=== PATIENT | female | born 1970 | race Caucasian/White ===

== ENCOUNTER 2018-07-22 08:41 | Inpatient (IN) | payer OTHER, SELFPAY ==
[2018-07-22] MEDS ORDERED: FOLIC ACID 5 MG/ML VIAL ONE (09:52)
[2018-07-22 09:58] LABS: Arterial Blood Carboxyhemoglob 1.1 % (0-1.5); Blood Gas Oxyhemoglobin 93.1 % (94-97)
--- NOTE | 2018-07-22 10:06 | RAD REPORT ---
EXAM DESCRIPTION: CT - Head Brain Wo Cont - 07/22/2018 9:39 am CLINICAL HISTORY: Dizziness;Slurred speech Headache, drowsiness COMPARISON: No comparisons TECHNIQUE: All CT scans are performed using dose optimization technique as appropriate and may inclu de automated exposure control or mA/KV adjustment according to patient size. FINDINGS: No intracranial hemorrhage, hydrocephalus or extra-axial fluid collection.Small areas of d iminished density are seen in the basal ganglia bilaterally.No areas of brain edema or evidence of mi dline shift. The paranasal sinuses and mastoids are clear. The calvarium is intact. IMPRESSION: Small areas of diminished density is seen in the basal ganglia bilaterally favored to re present findings related to prior infarcts. No acute intracranial finding is definitively seen. If t here is continued clinical concern for CVA, MR imaging of the brain would be recommended.
--- NOTE | 2018-07-22 10:35 | RAD REPORT ---
EXAM DESCRIPTION: RAD - Chest Single View - 07/22/2018 10:28 am CLINICAL HISTORY: SOB Chest pain. COMPARISON: No comparisons FINDINGS: Portable technique limits examination quality. The lungs are grossly clear. The heart is normal in size. No displaced fractures. IMPRESSION: No acute intrathoracic process suspected.
[2018-07-22 10:48] LABS: Absolute Lymphocytes (CBC) 1.4 K/uL (0.7-4.9); Absolute Monocytes 0.6 K/uL (0.1-1.3); Basophils % 0.7 % (0-1.3); Eosinophils % 1.6 % (0-4.4); Hematocrit 44.5 % (36.0-45.0); Lymphocytes % 12.2 % (15.3-44.8); MPV 8.2 fL (7.6-11.3); RBC Red Blood Cell Count 5.15 M/uL (3.86-4.86)
[2018-07-22 10:51] LABS: Protime INR 1.05
[2018-07-22 10:54] LABS: BUN Blood Urea Nitrogen 19 mg/dL (7-18); Bicarbonate 29 mmol/L (21-32); Glucose Level 158 mg/dL (74-106); Magnesium 1.9 mg/dL (1.8-2.4); Potassium 3.5 mmol/L (3.5-5.1); Sodium Level 141 mmol/L (136-145); Troponin (Emerg Dept Use Only) < 0.02 ng/mL (0.0-0.045)
--- NOTE | 2018-07-22 11:06 | RAD REPORT ---
EXAM DESCRIPTION: - CP - 07/22/2018 10:35 am CLINICAL HISTORY: Slurred speech;Weakness TIA/CVA, syncope COMPARISON: No comparisons TECHNIQUE: Real-time sonographic evaluation of both carotid systems was performed. Doppler interroga tion was performed with waveform tracing bilaterally. FINDINGS: Normal high resistance waveforms are noted in both external carotid arteries. The common c arotid arteries and internal carotid arteries show normal low resistance waveforms. No significant plaque formation is seen. Peak systolic and end diastolic velocity values and the ICA/ CCA ratios are in the non-hemodynamically significant range. Antegrade flow seen in both vertebral arteries. IMPRESSION: No significant atherosclerotic changes noted. No evidence of a hemodynamically significant stenosis.
--- NOTE | 2018-07-22 11:11 | ER ---
Nurse's Notes [facility] Name: Dejah Francis Age: 48 yrs Sex: Female : 1970 Arrival Date: 07/22/2018 Time: 08:48 Bed 13 Private MD: None, None Diagnosis: Weakness;Dizziness and giddiness Presentation: 07/22 09:10 Presenting complaint: Patient states: had high blood sugar yesterday, 376, and "right dm5 side isn't working right, having a hard time controlling it", "tadeo been dizzy" "today my blood sugar was 165 at home". Transition of care: patient was not received from another setting of care. Onset of symptoms was July 21, 2018. Risk Assessment: Do you want to hurt yourself or someone else? Patient reports no desire to harm self or others. Initial Sepsis Screen: Does the patient meet any 2 criteria? No. Patient's initial sepsis screen is negative. Does the patient have a suspected source of infection? No. Patient's initial sepsis screen is negative. Care prior to arrival: None. 09:10 Method Of Arrival: Ambulatory dm5 09:10 Acuity: ANDREA 3 dm5 Triage Assessment: 09:10 General: Appears in no apparent distress. Behavior is calm, cooperative. Pain: dm5 Complains of pain in right side - tingling. Neuro: Level of Consciousness is awake, alert, obeys commands, Oriented to person, place, time, Reports dizziness, since yesterday weakness in left arm and left leg. Respiratory: Airway is patent Respiratory effort is even, unlabored, Respiratory pattern is regular, symmetrical. Derm: Skin is pink, warm \\T\\ dry. Historical: - Allergies: : Ibuprofen; dm5 - Home Meds: : Humalog 100 unit/mL Sub-Q soln 10 mg twice a day for Type 2 Diabetes Mellitus [Active]; dm5 - PMHx: : Diabetes - NIDDM; Thyroid problem; dm5 - PSHx: : cyst removal - left shoulder; dm5 - Immunization history:: Adult Immunizations up to date. - Social history:: Smoking status: Patient/guardian denies using tobacco. - Ebola Screening: : Patient negative for fever greater than or equal to 101.5 degrees Fahrenheit, and additional compatible Ebola Virus Disease symptoms Patient denies exposure to infectious person Patient denies travel to an Ebola-affected area in the 21 days before illness onset No symptoms or risks identified at this time. Screenin:00 Patient has been NPO before screening. The patient is alert, able to follow commands. ph The patient does not exhibit slurred or garbled speech The patient is not exhibiting difficulty speaking. The patient does not exhibit difficulty understanding words. The patient is able to swallow own secretions with no drooling or need for suction. Patient tolerated one teaspoon of water. No drooling, immediate coughing, gurgling, or clearing of the throat was noted. The patient tolerated 90mL of water. No drooling, immediate coughing, gurgling, or clearing of the throat was noted. The patient passed the bedside swallow screening. Oral medications may be given as ordered. Contact Physician for further diet orders. 13:00 Abuse screen: Denies threats or abuse. Denies injuries from another. Nutritional ph screening: No deficits noted. Tuberculosis screening: No symptoms or risk factors identified. Fall Risk None identified. Assessment: 09:30 General: Appears in no apparent distress. comfortable, obese, well groomed, Behavior is ph calm, cooperative, appropriate for age, Denies fever, feeling ill. Pain: Denies pain. Neuro: Level of Consciousness is awake, alert, obeys commands, Oriented to person, place, time, situation, Pinmaker are equal bilaterally Speech is slurred, Facial symmetry appears normal, Facial symmetry: tongue is midline, Pupils are PERRLA, Reports dizziness, paresthesias weakness in "all over" Denies. Cardiovascular: Capillary refill < 3 seconds in bilateral fingers Patient's skin is warm and dry. Respiratory: Airway is patent Respiratory effort is even, unlabored, Respiratory pattern is regular, symmetrical, Breath sounds are clear bilaterally. GI: Patient currently denies abdominal pain, nausea, vomiting. : Denies burning with urination, urinary frequency. Derm: Skin is intact, is healthy with good turgor, Skin is pink, warm \\T\\ dry. Musculoskeletal: Circulation, motion, and sensation intact. Range of motion: intact in all extremities. 10:30 Reassessment: Patient appears in no apparent distress at this time. Patient and/or ph family updated on plan of care and expected duration. Pain level reassessed. Patient is alert, oriented x 3, equal unlabored respirations, skin warm/dry/pink. 11:30 Reassessment: Patient appears in no apparent distress at this time. Patient and/or ph family updated on plan of care and expected duration. Pain level reassessed. Patient is alert, oriented x 3, equal unlabored respirations, skin warm/dry/pink. 13:00 Reassessment: Patient appears in no apparent distress at this time. Patient and/or ph family updated on plan of care and expected duration. Pain level reassessed. Patient is alert, oriented x 3, equal unlabored respirations, skin warm/dry/pink. notified by MRI that pt was having anxiety r/t procedure, ERP aware and anxiety medication ordered. 14:45 Reassessment: Patient appears in no apparent distress at this time. Patient and/or ph family updated on plan of care and expected duration. Pain level reassessed. Patient is alert, oriented x 3, equal unlabored respirations, skin warm/dry/pink. Report called to Gloria HOOD, pt taken to [facility] via stretcher. Vital Signs: 09:10 BP 174 / 76; Pulse 88; Resp 18; Temp 98.9(TE); Pulse Ox 96% on R/A; Weight 142.88 kg; dm5 Height 5 ft. 9 in. (175.26 cm); Pain 0/10; 10:30 BP 164 / 78; Pulse 87; Resp 18; Pulse Ox 99% on R/A; ph 11:30 BP 154 / 78; Pulse 86; Resp 16; Pulse Ox 97% on R/A; ph 12:30 BP 169 / 81; Pulse 79; Resp 18; Pulse Ox 97% on R/A; ph 13:30 ph 14:05 BP 163 / 84; Pulse 88; Resp 22; Temp 97.9; Pulse Ox 99% on R/A; dh3 09:10 Body Mass Index 46.52 (142.88 kg, 175.26 cm) dm5 13:30 pt in MRI ph NIH Stroke Scale Scores: 09:24 NIHSS Score: 3 snw ED Course: 08:48 Patient arrived in ED. sb2 08:48 None, None is Private Physician. sb2 09:02 [facility] snw 09:02 Roni Nicholson MD is Attending Physician. snw 09:10 Arm band placed on left wrist. Patient placed in an exam room, on a stretcher. dm5 09:20 Triage completed. dm5 09:38 Shikha Montesinos, RN is Primary Nurse. ph 09:39 CT completed. Patient tolerated procedure well. Patient moved to CT via wheelchair. jg6 Patient moved back from CT. 09:40 CT Head Brain wo Cont In Process Unspecified. EDMS 10:00 Inserted saline lock: 20 gauge in right antecubital area, using aseptic technique. ph Blood collected. 10:01 Carotid Artery Bilateral US In Process Unspecified. EDMS 10:29 EKG done, by compressor service technician. reviewed by Roni Nicholson MD. at1 10:30 Stroke CXR 1 View In Process Unspecified. EDMS 11:09 Nichole Ochoa MD is Hospitalizing Provider. snw 14:45 Patient has correct armband on for positive identification. ph 14:55 No provider procedures requiring assistance completed. Patient admitted, IV remains in ph place. Administered Medications: 06/08 13:20 Drug: Ativan 2 mg Route: IVP; Site: right antecubital; ph 02 14:00 Follow up: Response: No adverse reaction; Anxiety decreased ph 10:15 Drug: foLIC Acid 1 mg Route: IVPB; Site: right antecubital; ph 10:30 Follow up: Response: No adverse reaction; IV Status: Completed infusion ph 12:50 Drug: Aspirin 81 mg Route: PO; ph 13:00 Follow up: Response: No adverse reaction ph Outcome: 11:10 Decision to Hospitalize by Provider. snw 14:58 Patient left the ED. ss 14:58 Admitted to Tele accompanied by damir, family with patient, via stretcher, with chart. ph 14:58 Condition: stable NIH Stroke Scale - NIH Stroke Score Date: 07/22/2018 Time: 09:24 Total Score = 3 1a. Level of Consciousness (LOC) - 0(Alert) 1b. Level of Consciousness (LOC) (Year \\T\\ Age) - 0(Both) 1c. LOC Commands (Open \\T\\ Closes Eyes/National Accounts Recruiter) - 0(Both) 2. Best Gaze (Lateral Gaze Paresis) - 0(Normal) 3. Visual Field Loss - 0(No visual loss) 4. Facial Palsy - 1(Minor Paralysis) 5a. Left Arm: Motor (10-second hold) - 0(No drift) 5b. Right Arm: Motor (10-second hold) - 0(No drift) 6a. Left Leg: Motor (5-second hold - always test supine) - 0(No drift) 6b. Right Leg: Motor (5-second hold - always test supine) - 1(Drift) 7. Limb Ataxia (finger/nose \\T\\ heel/fisher - test with eyes open) - 1(Present in one limb) 8. Sensory Loss (pinprick arms/legs/face) - 0(Normal) 9. Best Language: Aphasia (description/naming/reading) - 0(No aphasia) 10. Dysarthria (speech clarity - read or repeat words) - 0(Normal) 11. Extinction and Inattention (visual/tactile/auditory/spatial/personal) - 0(No abnormality) Initials: snw Signatures: Dispatcher [employer] EDMS Kacy Britton RN RN dm5 Felisa Triana, KNOT BORER-C KNOT BORER-Csnw Ami Maxwell RN RN ss Noemí Whiting, desilverizer EKG Tat1 Shikha Montesinos RN RN Anjana Will 3 Ary Tiwari2 Radha Burgos jg6 Corrections: (The following items were deleted from the chart) 20:02 11:15 Inserted saline lock: 20 gauge in right antecubital area, using aseptic ph technique. Blood collected. ph
--- NOTE | 2018-07-22 11:11 | EDPHYS ---
Physician Documentation [facility] Name: Dejah Francis Age: 48 yrs Sex: Female : 1970 Arrival Date: 07/22/2018 Time: 08:48 Bed 13 Private MD: None, None ED Physician Roni Nicholson HPI: 07/22 09:29 This 48 yrs old Female presents to ER via Ambulatory with complaints of High snw Blood Sugar, Dizziness, TINGLING RT SIDE. 09:29 The patient or guardian reports hyperglycemia, blurry vision, speech changes, right snw sided weakness that was potentially precipitated by with the patient's symptoms witnessed by family. Onset: The symptoms/episode began/occurred suddenly, yesterday. Associated signs and symptoms: Pertinent positives: right sided weakness, right sided paresthesias, slurred speech, dizziness. Current symptoms: In the emergency department the patient's symptoms are unchanged from the initial presentation. The patient has not experienced similar symptoms in the past. It is unknown whether or not the patient has recently seen a physician. Historical: - Allergies: 09:29 Ibuprofen; dm5 - Home Meds: : Humalog 100 unit/mL Sub-Q soln 10 mg twice a day for Type 2 Diabetes Mellitus [Active]; dm5 - PMHx: 09:29 Diabetes - NIDDM; Thyroid problem; dm5 - PSHx: 09:29 cyst removal - left shoulder; dm5 - Immunization history:: Adult Immunizations up to date. - Social history:: Smoking status: Patient/guardian denies using tobacco. - Ebola Screening: : Patient negative for fever greater than or equal to 101.5 degrees Fahrenheit, and additional compatible Ebola Virus Disease symptoms Patient denies exposure to infectious person Patient denies travel to an Ebola-affected area in the 21 days before illness onset No symptoms or risks identified at this time. ROS: 09:29 Constitutional: Negative for fever, chills, and weight loss, Eyes: Negative for injury, snw pain, redness, and discharge, ENT: Negative for injury, pain, and discharge, Neck: Negative for injury, pain, and swelling, Cardiovascular: Negative for chest pain, palpitations, and edema, Respiratory: Negative for shortness of breath, cough, wheezing, and pleuritic chest pain, Abdomen/GI: Negative for abdominal pain, nausea, vomiting, diarrhea, and constipation, Back: Negative for injury and pain, : Negative for injury, bleeding, discharge, and swelling, MS/Extremity: Negative for injury and deformity, + right sided weakness Skin: Negative for injury, rash, and discoloration. 09:29 Neuro: Positive for dizziness, gait disturbance, speech changes, weakness, of the right sided. Exam: 09:24 Constitutional: This is a well developed, well nourished patient who is awake, alert, snw and in no acute distress. Head/Face: Normocephalic, atraumatic. 09:24 ENT: Nares patent. No nasal discharge, no septal abnormalities noted. Tympanic membranes are normal and external auditory canals are clear. Oropharynx with no redness, swelling, or masses, exudates, or evidence of obstruction, uvula midline. Mucous membranes moist. Neck: Trachea midline, no thyromegaly or masses palpated, and no cervical lymphadenopathy. Supple, full range of motion without nuchal rigidity, or vertebral point tenderness. No Meningismus. Chest/axilla: Normal chest wall appearance and motion. Nontender with no deformity. No lesions are appreciated. Cardiovascular: Regular rate and rhythm with a normal S1 and S2. No gallops, murmurs, or rubs. Normal PMI, no JVD. No pulse deficits. Respiratory: Lungs have equal breath sounds bilaterally, clear to auscultation and percussion. No rales, rhonchi or wheezes noted. No increased work of breathing, no retractions or nasal flaring. Abdomen/GI: Soft, non-tender, with normal bowel sounds. No distension or tympany. No guarding or rebound. No evidence of tenderness throughout. Back: No spinal tenderness. No costovertebral tenderness. Full range of motion. Skin: Warm, dry with normal turgor. Normal color with no rashes, no lesions, and no evidence of cellulitis. MS/ Extremity: Pulses equal, no cyanosis. Neurovascular intact. Full, normal range of motion. Psych: Awake, alert, with orientation to person, place and time. Behavior, mood, and affect are within normal limits. 09:24 Eyes: Pupils: no acute changes, Extraocular movements: no acute changes, Lids and lashes: ptosis, of the right eye. 09:24 Neuro: Orientation: is normal, Mentation: is normal, able to follow commands, Memory: is normal, Cranial nerves: Ptosis of right upper eyelid, Cerebellar function: right lower ext unsteady, Motor: moves all fours, Strength is 3/5 in the right arm/leg, Sensation: tingling, that is mild, that is moderate, of the right leg, Gait: not tested. seizure activity, is not displayed by the patient, Abnormal movements: there are no abnormal movements. Vital Signs: 09:10 BP 174 / 76; Pulse 88; Resp 18; Temp 98.9(TE); Pulse Ox 96% on R/A; Weight 142.88 kg; dm5 Height 5 ft. 9 in. (175.26 cm); Pain 0/10; 10:30 BP 164 / 78; Pulse 87; Resp 18; Pulse Ox 99% on R/A; ph 11:30 BP 154 / 78; Pulse 86; Resp 16; Pulse Ox 97% on R/A; ph 12:30 BP 169 / 81; Pulse 79; Resp 18; Pulse Ox 97% on R/A; ph 13:30 ph 14:05 BP 163 / 84; Pulse 88; Resp 22; Temp 97.9; Pulse Ox 99% on R/A; dh3 09:10 Body Mass Index 46.52 (142.88 kg, 175.26 cm) dm5 13:30 pt in MRI ph NIH Stroke Scale Scores: 09:24 NIHSS Score: 3 snw MDM: 09:16 Patient medically screened. snw 09:24 Data reviewed: vital signs, nurses notes. Data interpreted: Pulse oximetry: on room air snw is 96 %. Interpretation: acceptable. Counseling: I had a detailed discussion with the patient and/or guardian regarding: the historical points, exam findings, and any diagnostic results supporting the discharge/admit diagnosis, the presence of at least one elevated blood pressure reading (>120/80) during this emergency department visit. ED course: Pt is not candidate for TPA as s/s started >4 hours ago (greater than 24 hours ago). 10:38 Physician consultation: Randell Gonzalez MD was called at 10:38, regarding consult, snw Message left with Dr. Gonzalez's office re: consult. 11:09 Physician consultation: Nichole Ochoa MD was called at 11:09, was contacted at 11:09, snw regarding admission, to the telemetry unit. 14:46 Physician consultation: Randell Gonzalez MD was called at 14:40, was contacted at 14:40, snw regarding MRI stroke protocol results. 07/22 09:16 Order name: ABG; Complete Time: 11:41 snw 07/22 09:19 Order name: Glucose, Ancillary Testing; Complete Time: 09:22 EDMS 07/22 09:24 Order name: Troponin (emerg Dept Use Only); Complete Time: 10:59 snw 07/22 09:24 Order name: Magnesium; Complete Time: 10:59 snw 07/22 09:24 Order name: Basic Metabolic Panel; Complete Time: 10:59 snw 07/22 09:24 Order name: CBC with Diff; Complete Time: 10:59 snw 07/22 09:24 Order name: Protime (+inr); Complete Time: 10:59 snw 07/22 09:24 Order name: Ptt, Activated; Complete Time: 10:59 w 07/22 09:24 Order name: Stroke CXR 1 View; Complete Time: 10:46 snw 07/22 09:24 Order name: CT Head Brain wo Cont; Complete Time: 10:33 snw 07/22 09:24 Order name: Blood Culture* 07/22 09:24 Order name: Carotid Artery Bilateral US; Complete Time: 11:08 snw 07/22 10:34 Order name: MRI Stroke Protocol [facility] 07/22 14:44 Order name: MRI; Complete Time: 14:56 EDMS 07/22 09:16 Order name: FSBS; Complete Time: 14:10 07/22 09:24 Order name: Call for Old Records 07/22 09:24 Order name: EKG; Complete Time: 09:26 w 07/22 09:24 Order name: Cardiac monitoring; Complete Time: 14:09 w 07/22 09:24 Order name: EKG - Nurse/Tech; Complete Time: 14:09 w 07/22 09:24 Order name: IV Saline Lock; Complete Time: 14:09 snw 07/22 09:24 Order name: Labs collected and sent; Complete Time: 14:10 w 07/22 09:24 Order name: NPO; Complete Time: 14:10 w 07/22 09:24 Order name: O2 Per Protocol; Complete Time: 14:10 snw 07/22 09:24 Order name: O2 Sat Monitoring; Complete Time: 14:10 w 07/22 09:24 Order name: Stroke Swallow Screen; Complete Time: 14:10 snw Administered Medications: 06/08 13:20 Drug: Ativan 2 mg Route: IVP; Site: right antecubital; ph 07/22 14:00 Follow up: Response: No adverse reaction; Anxiety decreased ph 10:15 Drug: foLIC Acid 1 mg Route: IVPB; Site: right antecubital; ph 10:30 Follow up: Response: No adverse reaction; IV Status: Completed infusion ph 12:50 Drug: Aspirin 81 mg Route: PO; ph 13:00 Follow up: Response: No adverse reaction ph Disposition: 18:55 Co-signature as Attending Physician, Roni Nicholson MD. rn Disposition: 07/22/18 11:10 Hospitalization ordered by Nichole Ochoa for Observation. Preliminary diagnosis are Weakness, Dizziness and giddiness. - Bed requested for Telemetry/MedSurg (observation). - Status is Observation. ss - Condition is Stable. - Problem is new. - Symptoms are unchanged. UTI on Admission? No NIH Stroke Scale - NIH Stroke Score Date: 07/22/2018 Time: 09:24 Total Score = 3 1a. Level of Consciousness (LOC) - 0(Alert) 1b. Level of Consciousness (LOC) (Year \T\ Age) - 0(Both) 1c. LOC Commands (Open \T\ Closes Eyes/Mammography Technologist) - 0(Both) 2. Best Gaze (Lateral Gaze Paresis) - 0(Normal) 3. Visual Field Loss - 0(No visual loss) 4. Facial Palsy - 1(Minor Paralysis) 5a. Left Arm: Motor (10-second hold) - 0(No drift) 5b. Right Arm: Motor (10-second hold) - 0(No drift) 6a. Left Leg: Motor (5-second hold - always test supine) - 0(No drift) 6b. Right Leg: Motor (5-second hold - always test supine) - 1(Drift) 7. Limb Ataxia (finger/nose \T\ heel/fisher - test with eyes open) - 1(Present in one limb) 8. Sensory Loss (pinprick arms/legs/face) - 0(Normal) 9. Best Language: Aphasia (description/naming/reading) - 0(No aphasia) 10. Dysarthria (speech clarity - read or repeat words) - 0(Normal) 11. Extinction and Inattention (visual/tactile/auditory/spatial/personal) - 0(No abnormality) Initials: snw Signatures: Dispatcher [employer] EDKacy Youssef RN RN dm5 Felisa Triana, GLUER-C GLUER-Csnw Roni Nicholson MD MD rn Martinez, Eric em1 Ami Maxwell RN RN Shikha Montesinos RN RN ph Corrections: (The following items were deleted from the chart) 13:41 11:10 Hospitalization Ordered by Nichole Ochoa MD for Observation. Preliminary em1 diagnosis is Weakness; Dizziness and giddiness. Bed requested for Telemetry/MedSurg (observation). Status is Observation. Condition is Stable. Problem is new. Symptoms are unchanged. UTI on Admission? No. snw 14:58 13:41 07/22/2018 11:10 Hospitalization Ordered by Nichole Ochoa MD for ss Observation. Preliminary diagnosis is Weakness; Dizziness and giddiness. Bed requested for Telemetry/MedSurg (observation). Status is Observation. Condition is Stable. Problem is new. Symptoms are unchanged. UTI on Admission? No. em1
--- NOTE | 2018-07-22 12:22 | EKG ---
Test Date: 2018-07-22 Test Time: 10:25:51 Oral Surgery Physician: JENNIFER MEASUREMENT RESULTS: Intervals: Rate: 83 MT: 176 QRSD: 92 QT: 396 QTc: 465 Burdick: P: 54 MT: 176 QRS: 51 T: 59 INTERPRETIVE STATEMENTS: Normal sinus rhythm Cannot rule out Anterior infarct, age undetermined Abnormal ECG No previous ECG available for comparison Electronically Signed On 07-22-18 12:20:56 BUZZSAW OPERATOR by Ignacio Dunlap
[2018-07-22] MEDS ORDERED: ASPIRIN 81 MG CHEWABLE TABLET ONE (12:57)
[2018-07-22] MEDS ORDERED: LORazepam 2 MG/ML VIAL ONE (13:24)
--- NOTE | 2018-07-22 14:41 | RAD REPORT ---
EXAM DESCRIPTION: MRI - Brain Wo Cont - 07/22/2018 2:03 pm CLINICAL HISTORY: Dizziness COMPARISON: Head CT July 22, 2018 TECHNIQUE: Axial, sagittal, and coronal magnetic images of the brain were obtained. Contrast was not requested FINDINGS: 8 millimeter area of abnormal signal is present within the left internal capsule consisten t with an acute infarct. A 8 millimeter area of abnormal signal within the left basal ganglia/left faust radiata represents a n old infarct. Bold right basal ganglia and left periventricular infarcts noted. Small old right cerebellar infarct. The ventricles are normal caliber. An extra-axial fluid collection is not present The sinuses and mastoids are clear. IMPRESSION: 8 millimeter acute infarct left internal capsule Kiran of the emergency room was notified 2:36 p.m. July 22, 2018
[2018-07-22] MEDS: CLOPIDOGREL 75 MG TABLET PO SCH (15:50)
[2018-07-22] MEDS: NA CHLORIDE 0.9% 1,000 ML IV SCH (15:51)
[2018-07-22 20:26] LABS: Urine Appearance CLEAR; Urine Bilirubin NEGATIVE (NEG); Urine Blood NEGATIVE (NEG); Urine Color YELLOW; Urine Glucose 2+ (NEG); Urine Protein NEGATIVE (NEG); Urine pH 5.5 (5.0-7.0)
[2018-07-22 20:29] LABS: Urine Microscopic Reflex ORDER UMIC
[2018-07-22 21:03] LABS: Urine Bacteria >50 /HPF (<20); Urine Culture Reflex Order REFLEXED; Urine RBC <5 /HPF (NONE SEEN)
[2018-07-22] MEDS: ATORVASTATIN 80 MG TAB PO SCH (21:32)
[2018-07-23] MEDS: NA CHLORIDE 0.9% 1,000 ML IV SCH ×3 (01:35→21:10)
[2018-07-23] MEDS: METOPROLOL TARTRATE 5 MG/5 ML INJ IV PRN ×4 (01:36→21:10)
--- NOTE | 2018-07-23 06:27 | CON ---
Reason For Consultation: Consultation called because of stroke. History Of Present Illness: Ms. Francis is a 48-year-old, right-handed patient, who has poorly controlled diabetes mellitus, hypertension, and dyslipidemia. On the 11 in the morning, today is the , the patient noted some incoordination, difficulty using her right leg, could not maintain balance , and felt "dizzy." Her blood sugar at time was 376. She did not seek medical attention right away. Next day, she did come in, which was the 21 of July , in the [facility] and she had imaging of the brain including a head CT scan, which suggests possibility of strokes, although the age could not be determined and these were in the basal ganglia bilaterally. They did appear more chronic strokes. However, she did have subsequent brain MRI stroke protocol, identified an acute stroke measuring 8 mm in the internal capsule and an old stroke in the left basal ganglia, also measuring 8 mm. In retrospect, the patient says she does not recall having any incoordination problems despite the chronic left basal ganglia stroke. She does not know when that would occur. Carotid Dopplers were negative. EKG showed sinus rhythm. Chest x-ray also was negative. At [facility], she did have hypertension and was allowed to have permissive hypertension in association with the acute stroke. Currently, she did have up to actually ranged from 160s to 190s systolic over 80s to 97 diastolic and pulse range in the mid to upper 80s. Temperature afebrile. Her blood work did not reveal any significant abnormalities in terms of a complete blood count with differential. There is a slightly elevated white blood cell count of 11.2, neutrophils 80.5. Coagulation panel was normal. Blood gas is essentially unremarkable. Slightly low CO2 of 24.5. Chemistries did show a glucose ranged from 158-171, and magnesium normal, calcium normal. Rapid troponin negative. Past Medical History: As indicated. Allergies: IBUPROFEN. Medications: At home should be Humalog 10 units subcutaneously twice daily. She was poorly compliant with that. She also has hypothyroidism, but no medications noted there. Past Surgical History: Left shoulder cyst removal. Family History: Noncontributory. Social History: Denies alcohol, tobacco, or IV drug use. Review of Systems: Denies any recent fevers, chills, nausea, vomiting, myalgias, arthralgias, headache, weight change, rash, psychiatric complaints, gastrointestinal or genitourinary issues. Physical Examination: Vital Signs: Blood pressure 193/97, pulse of 83, respiratory rate 16, temperature 97.6. Oxygen saturation is 98% on room air. General: Ms. Francis is resting in bed. She is in no significant distress. She does appear to have significant obesity class 2, with her weight being 302 pounds, height 5 feet and 9 inches, and BMI 44.6. HEENT: She is atraumatic and normocephalic. Sclerae anicteric. Oropharynx is moist and pink. Neck: Supple. Chest: Clear. Heart: Regular. Extremities: Show no edema, cyanosis, or clubbing. Neurological: She is alert and oriented to person, place, time, and situation. No obvious cranial nerve deficits on 2 through 12. Motor examination: She has full strength in upper and lower extremity. However, she has marked dysmetria noted in the right upper extremity and finger to nose and fine finger movements. Also noted dysmetria in the right lower extremity on her fisher and trying to touch 1 spot on her left fisher with the right heel. She does not have drift in the upper extremities. She does not have a sensory deficit, right versus left side. Reflexes are symmetric, 1 to 2+ in upper and lower extremities. Gait; she does require max assist, tends to fall to the right with ambulation. Assessment: Ms. Francis is a 48-year-old patient with an acute left internal capsule stroke, but basal ganglia involvement affecting more incoordination than strength and she has a tendency to fall to the right and significant dysmetria noted in the right upper extremity. She has minimal weakness and sensory loss. She is poorly compliant with her diabetes, hypertension, and dyslipidemia management. Plan: 1. Aspirin along with Plavix daily. 2. Folate 1 mg daily. 3. Lipitor 80 mg at bedtime. 4. Permissive hypertension over the next 3 days, then may introduce NIDA inhibitor at low dose. 5. The patient should be evaluated by physical and occupational therapy for potential transfer to the acute inpatient rehabilitation unit to begin aggressive physical therapy to help speed her recovery. 6. The patient was counseled on the importance of addressing diet, hydration, and exercise to reduce the risk of additional strokes and myocardial infarction. 7. After the patient is discharged from rehab unit, she should follow up with Dr. Gonzalez in clinic in 1 month. JANKI Voice ID: [id number] Report ID: [id number] MTDD
[2018-07-23 06:41] LABS: Absolute Lymphocytes (CBC) 1.6 K/uL (0.7-4.9); Absolute Monocytes 0.6 K/uL (0.1-1.3); Absolute Neutrophil 5.4 K/uL (1.8-8.0); Basophils % 0.8 % (0-1.3); Eosinophils % 2.6 % (0-4.4); Hematocrit 42.8 % (36.0-45.0); Lymphocytes % 20.4 % (15.3-44.8); MPV 8.3 fL (7.6-11.3); Monocytes % 8.1 % (3.3-12.3); RBC Red Blood Cell Count 4.98 M/uL (3.86-4.86)
[2018-07-23 06:42] LABS: Bilirubin Total 0.5 mg/dL (0.2-1.0); Phosphorus 3.1 mg/dL (2.5-4.9); Potassium 3.6 mmol/L (3.5-5.1); Protein, Total 6.6 g/dL (6.4-8.2)
--- NOTE | 2018-07-23 07:17 | P.HP ---
Certification for Inpatient Patient admitted to: Inpatient Practitioner: I am a practitioner with admitting privileges, knowledge of patient current condition, hospital course, and medical plan of care. Services: Services provided to patient in accordance with Admission requirements found in Title 42 Section 412.3 of the Code of Federal Regulations Patient History Date of Service: 07/22/18 Primary Care Provider: None Reason for admission: Right sided weakness History of Present Illness: This is a 48 yr old obese female with NIDDM, poorly controlled, previous hx of HTN not on medications for years, thyroid disease along with strong family hx of CVA admitted for right sided weakness. Per patient, she has been having progressively worsening dizziness, blurry vision (R>L), hand time controlling the right side for the past 2 days. She had a fall on the morning of admission. In the ED, patient's BP was 170/70, CT head was negative for acute abnormalities, MRI was pending. At the time of my exam ,patient was AOx3, had persistent ataxia on right side and blood pressure was elevated. Allergies ibuprofen Adverse Reaction (Verified 07/22/18 15:16) Itching/Hives/Rash Home Medications: Insulin Lispro [Humalog] 10 unit SQ BID 07/22/18 - Past Medical/Surgical History Has patient received pneumonia vaccine in the past: No Diabetic: Yes -: DM -: Thyroid -: Lt shoulder cyst removal - Family History Father -: Hypertension, Other (see notes) Notes: thyroidectomy. glaucoma Mother -: Heart disease, Hypertension, Diabetes - Social History Smoking Status: Never smoker Alcohol use: No CD- Drugs: No Caffeine use: No Place of Residence: Home Review of Systems 10-point ROS is otherwise unremarkable Physical Examination - Vital Signs Temperature: 98.2 F Blood Pressure: 189/79 Pulse: 78 Respirations: 20 Pulse Ox (%): 94 - Physical Exam General: Alert, In no apparent distress, Oriented x3 HEENT: Atraumatic, PERRLA, Mucous membr. moist/pink, EOMI, Sclerae nonicteric Neck: Supple, 2+ carotid pulse no bruit, No LAD, Without JVD or thyroid abnormality Respiratory: Clear to auscultation bilaterally, Normal air movement Cardiovascular: Regular rate/rhythm, Normal S1 S2 Gastrointestinal: Normal bowel sounds, No tenderness Musculoskeletal: No tenderness Integumentary: No rashes Neurological: Normal affect, Other (Right sided extremity dysmetria noted. No obvious cranial nerve deficits noted) Lymphatics: No axilla or inguinal lymphadenopathy - Studies Laboratory Data (last 24 hrs) 07/22/18 10:00: PT 12.4, INR 1.05, APTT 30.2 07/22/18 10:00: WBC 11.2 H, Hgb 14.9, Hct 44.5, Plt Count 318 07/22/18 10:00: Sodium 141, Potassium 3.5, BUN 19 H, Creatinine 0.78, Glucose 158 H, Magnesium 1.9 Assessment and Plan - Problems (Diagnosis) (1) CVA (cerebral vascular accident) Current Visit: Yes Status: Acute Qualifiers: CVA mechanism: unspecified Qualified Code(s): I63.9 - Cerebral infarction, unspecified (2) Diabetes mellitus Current Visit: Yes Status: Chronic Qualifiers: Diabetes mellitus type: type 2 Diabetes mellitus continuous churn buttermaker insulin use: with continuous churn buttermaker use Diabetes mellitus complication status: with hyperglycemia Qualified Code(s): E11.65 - Type 2 diabetes mellitus with hyperglycemia; Z79.4 - [facility] (current) use of insulin (3) Hypothyroid Current Visit: Yes Status: Chronic Qualifiers: Hypothyroidism type: unspecified Qualified Code(s): E03.9 - Hypothyroidism , unspecified - Plan This is a 48-year-old female with. Acute CVA History of prior CVA, unknown to patient Start aspirin, Plavix, statin Speech therapy, physical therapy, occupation therapy consult ordered. Neurology consulted Allow for permissive hypertension. Diabetes mellitus, type 2, with hyperglycemia, uncontrolled Strict blood sugar control likes line Accu-Cheks a.c. HS, mild scale insulin Will restart home insulin as well Hypothyroidism, not on any medications Noncompliance Counseled on importance of medication compliance Morbid obesity, BMI 44.6 DVT prophylaxis: Lovenox GI prophylaxis: None Diet: NPO, until cleared from speech therapy Disposition: Pending workup/physical therapy evaluation. We will likely need social work to be involved for discharge planning on this patient. - Advance Directives Does patient have a Living Will: No Does patient have a Durable POA for Healthcare: No
[2018-07-23] MEDS: ASPIRIN EC 81 MG TAB PO SCH (08:46)
[2018-07-23] MEDS: CLOPIDOGREL 75 MG TABLET PO SCH (08:46)
[2018-07-23] MEDS ORDERED: POTASSIUM CL SA 10 MEQ TAB PO ONE (09:00)
[2018-07-23] MEDS ORDERED: D50W 25 GM/50 ML SYRINGE IV PRN ×3 (09:23→11:53)
[2018-07-23] MEDS ORDERED: GLUCAGON 1 MG/VIAL IM PRN ×3 (09:23→11:53)
[2018-07-23] MEDS ORDERED: ACETAMINOPHEN 500 MG TAB PO PRN (12:28)
[2018-07-23] MEDS: INSULIN -REGULAR HUMAN 50 UNIT/0.5 ML ML SQ SCH ×3 (12:30→21:00)
--- NOTE | 2018-07-23 12:56 | ECHO ---
HEIGHT: 5 ft 9 in WEIGHT: 302 lb 5 oz DATE OF STUDY: 07/23/[address]: Nichole Ochoa MD 2-DIMENSIONAL: YES M.MODE: YES DOPPLER: YES COLOR FLOW: YES TDS: NO PORTABLE: NO DEFINITY: NO BUBBLE STUDY: NO DIAGNOSIS: STROKE CARDIAC HISTORY: CATHERIZATION: NO SURGERY: NO PROSTHETIC VALVE: NO PACEMAKER: NO MEASUREMENTS (cm) DIASTOLIC (NORMALS) SYSTOLIC (NORMALS) IVSd 1.3 (0.6-1.2) LA Diam 3.9 (1.9-4.0) LVEF 75% LVIDd 4.1 (3.5-5.7) LVIDs 2.3 (2.0-3.5) %FS 43% LVPWd 1.4 (0.6-1.2) Ao Diam 2.7 (2.0-3.7) 2 DIMENSIONAL ASSESSMENT: RIGHT ATRIUM: NORMAL LEFT ATRIUM: NORMAL RIGHT VENTRICLE: NORMAL LEFT VENTRICLE: NORMAL TRICUSPID VALVE: NORMAL MITRAL VALVE: NORMAL PULMONIC VALVE: NORMAL AORTIC VALVE: NORMAL PERICARDIAL EFFUSION: NONE AORTIC ROOT: NORMAL LEFT VENTRICULAR WALL MOTION: NORMAL DOPPLER/COLOR FLOW: NORMAL COMMENTS: NORMAL 2D ECHOCARDIOGRAM WITH DOPPLER. TECHNOLOGIST: Angelo PRIETO
--- NOTE | 2018-07-23 16:56 | P.PN ---
Subjective Date of Service: 07/23/18 Primary Care Provider: None Chief Complaint: Right sided weakness Subjective: No new changes, No C/O voiced Patient seen and examined at bedside. No family at bedside. Chart reviewed and case discussed with nursing staff. Review of Systems 10-point ROS is otherwise unremarkable Physical Examination - Vital Signs Temperature: 98.2 F Blood Pressure: 189/79 Pulse: 78 Respirations: 20 Pulse Ox (%): 94 - Physical Exam General: Alert, In no apparent distress, Oriented x3 HEENT: Atraumatic, PERRLA, EOMI Neck: Supple, JVD not distended Respiratory: Clear to auscultation bilaterally, Normal air movement Cardiovascular: Regular rate/rhythm, Normal S1 S2 Gastrointestinal: Normal bowel sounds, No tenderness Musculoskeletal: No tenderness Integumentary: No rashes Neurological: Other (Right-sided drift still noted,) Lymphatics: No axilla or inguinal lymphadenopathy Assessment And Plan - Current Problems (Diagnosis) (1) CVA (cerebral vascular accident) Current Visit: Yes Status: Acute Qualifiers: CVA mechanism: unspecified Qualified Code(s): I63.9 - Cerebral infarction, unspecified (2) Diabetes mellitus Current Visit: Yes Status: Chronic Qualifiers: Diabetes mellitus type: type 2 Diabetes mellitus snf insulin use: with snf use Diabetes mellitus complication status: with hyperglycemia Qualified Code(s): E11.65 - Type 2 diabetes mellitus with hyperglycemia; Z79.4 - skilled nursing (current) use of insulin (3) Hypothyroid Current Visit: Yes Status: Chronic Qualifiers: Hypothyroidism type: unspecified Qualified Code(s): E03.9 - Hypothyroidism , unspecified - Plan This is a 48-year-old female with. Acute CVA History of prior CVA, unknown to patient Start aspirin, Plavix, statin Speech therapy, physical therapy, occupation therapy consult ordered. Pending physical therapy consult still. Neurology consulted, recommendations appreciated. Allow for permissive hypertension. Diabetes mellitus, type 2, with hyperglycemia, uncontrolled Strict blood sugar control likes line Accu-Cheks a.c. HS, mild scale insulin Will restart home insulin as well Hypothyroidism, not on any medications Noncompliance Counseled on importance of medication compliance Morbid obesity, BMI 44.6 DVT prophylaxis: Lovenox GI prophylaxis: None Diet: NPO, until cleared from speech therapy Disposition: Pending workup/physical therapy evaluation. We will likely need social work to be involved for discharge planning on this patient.
[2018-07-23] MEDS: INSULIN 70/30 100 UNITS/ML SQ SCH (17:05)
[2018-07-23] MEDS: ATORVASTATIN 80 MG TAB PO SCH (21:09)
[2018-07-24] MEDS: NA CHLORIDE 0.9% 1,000 ML IV SCH (05:51)
[2018-07-24] MEDS: METOPROLOL TARTRATE 5 MG/5 ML INJ IV PRN (05:52)
[2018-07-24 06:11] LABS: Absolute Lymphocytes (CBC) 6.3 K/uL (0.7-4.9); Absolute Monocytes 0.2 K/uL (0.1-1.3); Absolute Neutrophil 0.8 K/uL (1.8-8.0); Eosinophils % 0.5 % (0-4.4); Hematocrit 41.5 % (36.0-45.0); Lymphocytes % 86.9 % (15.3-44.8); MPV 8.1 fL (7.6-11.3); Monocytes % 2.1 % (3.3-12.3); RBC Red Blood Cell Count 4.83 M/uL (3.86-4.86)
[2018-07-24 06:21] LABS: ALT/SGPT 17 U/L (12-78); AST/SGOT 10 U/L (15-37); Alkaline Phosphatase 80 U/L (45-117); BUN Blood Urea Nitrogen 15 mg/dL (7-18); Bicarbonate 28 mmol/L (21-32); Bilirubin Total 0.4 mg/dL (0.2-1.0); Glucose Level 117 mg/dL (74-106); Potassium 3.4 mmol/L (3.5-5.1); Protein, Total 6.4 g/dL (6.4-8.2); Sodium Level 142 mmol/L (136-145)
[2018-07-24] MEDS ORDERED: POTASSIUM CL SA 10 MEQ TAB PO ONE (07:00)
[2018-07-24] MEDS: INSULIN -REGULAR HUMAN 50 UNIT/0.5 ML ML SQ SCH ×4 (07:30→21:00)
[2018-07-24 08:35] LABS: Blood Morphology Comment NOT SEEN (NOT SEEN); Hypersegmented Neutrophils 1+; Platelet Estimate ADEQ
[2018-07-24] MEDS: INSULIN 70/30 100 UNITS/ML SQ SCH ×2 (09:21→16:28)
[2018-07-24] MEDS: ASPIRIN EC 81 MG TAB PO SCH (09:59)
[2018-07-24] MEDS: CLOPIDOGREL 75 MG TABLET PO SCH (09:59)
[2018-07-24] MEDS: ENOXAPARIN 40 MG/0.4 ML SQ SCH (10:00)
--- NOTE | 2018-07-24 12:17 | P.PN ---
Subjective Date of Service: 07/24/18 Primary Care Provider: None Chief Complaint: Right sided weakness Subjective: No C/O voiced, Working w/ PT Patient seen and examined at bedside. Father at bedside. Chart reviewed and case discussed with nursing staff. Review of Systems 10-point ROS is otherwise unremarkable Physical Examination - Vital Signs Temperature: 97.1 F Blood Pressure: 160/80 Pulse: 81 Respirations: 16 Pulse Ox (%): 98 - Physical Exam General: Alert, In no apparent distress, Oriented x3 HEENT: Atraumatic, PERRLA, EOMI Neck: Supple, JVD not distended Respiratory: Clear to auscultation bilaterally, Normal air movement Cardiovascular: Regular rate/rhythm, Normal S1 S2 Gastrointestinal: Normal bowel sounds, No tenderness Musculoskeletal: No tenderness Integumentary: No rashes Neurological: Normal speech, Normal affect, Other (Continues to have right- sided drift/weakness) Lymphatics: No axilla or inguinal lymphadenopathy Assessment And Plan - Current Problems (Diagnosis) (1) CVA (cerebral vascular accident) Current Visit: Yes Status: Acute Qualifiers: CVA mechanism: unspecified Qualified Code(s): I63.9 - Cerebral infarction, unspecified (2) Diabetes mellitus Current Visit: Yes Status: Chronic Qualifiers: Diabetes mellitus type: type 2 Diabetes mellitus termite control servicer insulin use: with termite control servicer use Diabetes mellitus complication status: with hyperglycemia Qualified Code(s): E11.65 - Type 2 diabetes mellitus with hyperglycemia; Z79.4 - exterminator helper (current) use of insulin (3) Hypothyroid Current Visit: Yes Status: Chronic Qualifiers: Hypothyroidism type: unspecified Qualified Code(s): E03.9 - Hypothyroidism , unspecified (4) Hypertension Current Visit: Yes Status: Chronic Qualifiers: Hypertension type: essential hypertension Qualified Code(s): I10 - Essential (primary) hypertension (5) Noncompliance Current Visit: Yes Status: Acute - Plan This is a 48-year-old female with. Acute CVA History of prior CVA, unknown to patient Continue aspirin, Plavix, statin Speech therapy, physical therapy, occupation therapy consulted. Neurology consulted, recommendations appreciated. Allow for permissive hypertension. Hypertension Will start on low-dose NIDA-inhibitor. Continue to monitor blood pressure Diabetes mellitus, type 2, with hyperglycemia, uncontrolled Strict blood sugar control likes line Accu-Cheks ACHS, mild scale insulin Will restart home insulin as well Hypothyroidism, not on any medications Noncompliance Counseled on importance of medication compliance Morbid obesity, BMI 44.6 DVT prophylaxis: Lovenox GI prophylaxis: None Diet: Heart healthy diet Disposition: Pending workup/physical therapy evaluation. Rehab consult placed. We will likely need social work to be involved for discharge planning on this patient.
[2018-07-24] MEDS: FOLIC ACID 1 MG TABLET PO SCH (12:37)
[2018-07-24] MEDS: LISINOPRIL 10 MG TAB PO SCH (12:41)
[2018-07-24] MEDS: ATORVASTATIN 80 MG TAB PO SCH (20:23)
[2018-07-25 05:55] LABS: Absolute Lymphocytes (CBC) 2.2 K/uL (0.7-4.9); Absolute Monocytes 0.7 K/uL (0.1-1.3); Absolute Neutrophil 4.9 K/uL (1.8-8.0); Basophils % 0.8 % (0-1.3); Eosinophils % 1.8 % (0-4.4); Hematocrit 42.2 % (36.0-45.0); Lymphocytes % 27.6 % (15.3-44.8); MPV 8.1 fL (7.6-11.3); Monocytes % 8.7 % (3.3-12.3); RBC Red Blood Cell Count 4.92 M/uL (3.86-4.86)
[2018-07-25 06:13] LABS: ALT/SGPT 20 U/L (12-78); AST/SGOT 13 U/L (15-37); Albumin 2.9 g/dL (3.4-5.0); Alkaline Phosphatase 87 U/L (45-117); BUN Blood Urea Nitrogen 13 mg/dL (7-18); Bicarbonate 27 mmol/L (21-32); Bilirubin Total 0.5 mg/dL (0.2-1.0); Glucose Level 98 mg/dL (74-106); Potassium 3.5 mmol/L (3.5-5.1); Protein, Total 6.7 g/dL (6.4-8.2); Sodium Level 141 mmol/L (136-145); T4,Total 9.3 ug/dL (4.8-13.9)
[2018-07-25] MEDS: INSULIN -REGULAR HUMAN 50 UNIT/0.5 ML ML SQ SCH ×4 (07:30→21:00)
[2018-07-25] MEDS: INSULIN 70/30 100 UNITS/ML SQ SCH ×2 (08:00→16:40)
[2018-07-25] MEDS ORDERED: POTASSIUM 25 MEQ EFFERV TAB PO ONE (09:00)
[2018-07-25] MEDS: LISINOPRIL 10 MG TAB PO SCH (09:01)
[2018-07-25] MEDS: ASPIRIN EC 81 MG TAB PO SCH (09:02)
[2018-07-25] MEDS: FOLIC ACID 1 MG TABLET PO SCH (09:02)
[2018-07-25] MEDS: ENOXAPARIN 40 MG/0.4 ML SQ SCH (09:02)
[2018-07-25] MEDS: CLOPIDOGREL 75 MG TABLET PO SCH (09:03)
--- NOTE | 2018-07-25 12:46 | P.PN ---
Subjective Date of Service: 07/25/18 Primary Care Provider: None Chief Complaint: Right sided weakness Subjective: No new changes, No C/O voiced Patient seen and examined at bedside. Father at bedside. Chart reviewed and case discussed with nursing staff. Review of Systems 10-point ROS is otherwise unremarkable Physical Examination - Vital Signs Temperature: 97.4 F Blood Pressure: 190/87 Pulse: 87 Respirations: 18 Pulse Ox (%): 99 - Physical Exam General: Alert, In no apparent distress, Oriented x3 HEENT: Atraumatic, PERRLA, EOMI Neck: Supple, JVD not distended Respiratory: Clear to auscultation bilaterally, Normal air movement Cardiovascular: Regular rate/rhythm, Normal S1 S2 Gastrointestinal: Normal bowel sounds, No tenderness Musculoskeletal: No tenderness Integumentary: No rashes Neurological: Normal speech, Normal tone, Normal affect Lymphatics: No axilla or inguinal lymphadenopathy Assessment And Plan - Current Problems (Diagnosis) (1) CVA (cerebral vascular accident) Current Visit: Yes Status: Acute Qualifiers: CVA mechanism: unspecified Qualified Code(s): I63.9 - Cerebral infarction, unspecified (2) Diabetes mellitus Current Visit: Yes Status: Chronic Qualifiers: Diabetes mellitus type: type 2 Diabetes mellitus senior care insulin use: with senior care use Diabetes mellitus complication status: with hyperglycemia Qualified Code(s): E11.65 - Type 2 diabetes mellitus with hyperglycemia; Z79.4 - skilled nursing (current) use of insulin (3) Hypothyroid Current Visit: Yes Status: Chronic Qualifiers: Hypothyroidism type: unspecified Qualified Code(s): E03.9 - Hypothyroidism , unspecified (4) Hypertension Current Visit: Yes Status: Chronic Qualifiers: Hypertension type: essential hypertension Qualified Code(s): I10 - Essential (primary) hypertension (5) Noncompliance Current Visit: Yes Status: Acute - Plan This is a 48-year-old female with. Acute CVA History of prior CVA, unknown to patient Continue aspirin, Plavix, statin Speech therapy, physical therapy, occupation therapy consulted. Recommendations appreciated Neurology consulted, recommendations appreciated. Allow for permissive hypertension. Hypertension Continue low-dose NIDA-inhibitor. Continue to monitor blood pressure Diabetes mellitus, type 2, with hyperglycemia, uncontrolled Strict blood sugar control likes line Accu-Cheks ACHS, mild scale insulin Will restart home insulin as well Hypothyroidism, not on any medications Noncompliance Counseled on importance of medication compliance Morbid obesity, BMI 44.6 UTI We will do a course of oral Ceftin 250 mg b.i.d. for 5 days. DVT prophylaxis: Lovenox GI prophylaxis: None Diet: Heart healthy diet Disposition: Pending workup/physical therapy evaluation. Rehab consult placed. We will likely need social work to be involved for discharge planning on this patient.
[2018-07-25] MEDS: CEFUROXIME 250 MG TAB PO SCH (21:32)
[2018-07-25] MEDS: ATORVASTATIN 80 MG TAB PO SCH (21:32)
[2018-07-26 05:52] LABS: Absolute Lymphocytes (CBC) 1.7 K/uL (0.7-4.9); Absolute Monocytes 0.8 K/uL (0.1-1.3); Absolute Neutrophil 5.8 K/uL (1.8-8.0); Basophils % 0.7 % (0-1.3); Eosinophils % 2.1 % (0-4.4); Hematocrit 42.7 % (36.0-45.0); Lymphocytes % 20.1 % (15.3-44.8); MPV 8.2 fL (7.6-11.3); Monocytes % 8.8 % (3.3-12.3)
[2018-07-26 06:03] LABS: ALT/SGPT 20 U/L (12-78); AST/SGOT 14 U/L (15-37); Albumin 2.9 g/dL (3.4-5.0); Alkaline Phosphatase 70 U/L (45-117); BUN Blood Urea Nitrogen 14 mg/dL (7-18); Bicarbonate 28 mmol/L (21-32); Bilirubin Total 0.5 mg/dL (0.2-1.0); Glucose Level 114 mg/dL (74-106); Potassium 3.6 mmol/L (3.5-5.1); Protein, Total 6.7 g/dL (6.4-8.2); Sodium Level 141 mmol/L (136-145)
[2018-07-26] MEDS: INSULIN -REGULAR HUMAN 50 UNIT/0.5 ML ML SQ SCH ×4 (07:30→20:54)
[2018-07-26] MEDS ORDERED: POTASSIUM 25 MEQ EFFERV TAB PO ONE (09:00)
[2018-07-26] MEDS: ENOXAPARIN 40 MG/0.4 ML SQ SCH (09:54)
[2018-07-26] MEDS: CEFUROXIME 250 MG TAB PO SCH ×2 (09:55→20:53)
[2018-07-26] MEDS: INSULIN 70/30 100 UNITS/ML SQ SCH ×2 (09:55→17:00)
[2018-07-26] MEDS: ASPIRIN EC 81 MG TAB PO SCH (09:56)
[2018-07-26] MEDS: LISINOPRIL 10 MG TAB PO SCH (09:56)
[2018-07-26] MEDS: CLOPIDOGREL 75 MG TABLET PO SCH (09:56)
[2018-07-26] MEDS: FOLIC ACID 1 MG TABLET PO SCH (09:56)
--- NOTE | 2018-07-26 11:16 | P.PN ---
Subjective Date of Service: 07/26/18 Primary Care Provider: None Chief Complaint: Right sided weakness Subjective: No C/O voiced, Tolerating diet, Improving, Working w/ PT Patient seen and examined at bedside. Father at bedside. Chart reviewed and case discussed with nursing staff. Review of Systems 10-point ROS is otherwise unremarkable Physical Examination - Vital Signs Temperature: 97.7 F Blood Pressure: 184/81 Pulse: 87 Respirations: 16 Pulse Ox (%): 99 - Physical Exam General: Alert, In no apparent distress, Oriented x3 HEENT: Atraumatic, PERRLA, EOMI Neck: Supple, JVD not distended Respiratory: Clear to auscultation bilaterally, Normal air movement Cardiovascular: Regular rate/rhythm, Normal S1 S2 Gastrointestinal: Normal bowel sounds, No tenderness Musculoskeletal: No tenderness Integumentary: No rashes Neurological: Normal speech, Normal affect, Abnormal gait, Abnormal strength Lymphatics: No axilla or inguinal lymphadenopathy Assessment And Plan - Current Problems (Diagnosis) (1) CVA (cerebral vascular accident) Current Visit: Yes Status: Acute Qualifiers: CVA mechanism: unspecified Qualified Code(s): I63.9 - Cerebral infarction, unspecified (2) Diabetes mellitus Current Visit: Yes Status: Chronic Qualifiers: Diabetes mellitus type: type 2 Diabetes mellitus terminal clerk insulin use: with assisted use Diabetes mellitus complication status: with hyperglycemia Qualified Code(s): E11.65 - Type 2 diabetes mellitus with hyperglycemia; Z79.4 - [facility] (current) use of insulin (3) Hypothyroid Current Visit: Yes Status: Chronic Qualifiers: Hypothyroidism type: unspecified Qualified Code(s): E03.9 - Hypothyroidism , unspecified (4) Hypertension Current Visit: Yes Status: Chronic Qualifiers: Hypertension type: essential hypertension Qualified Code(s): I10 - Essential (primary) hypertension (5) Noncompliance Current Visit: Yes Status: Acute - Plan This is a 48-year-old female with. Acute CVA, left internal capsule stroke, with basal ganglia involvement History of prior CVA, involving basal ganglia, unknown to patient Continue aspirin, Plavix, statin Continue folate 1 mg daily Speech therapy, physical therapy, occupation therapy consulted. Recommendations appreciated Neurology consulted, recommendations appreciated. Allow for permissive hypertension. Hypertension Continue low-dose NIDA-inhibitor. Continue to monitor blood pressure Diabetes mellitus, type 2, with hyperglycemia, uncontrolled Strict blood sugar control likes line Accu-Cheks ACHS, mild scale insulin Will restart home insulin as well Hypothyroidism, not on any medications Noncompliance Counseled on importance of medication compliance Morbid obesity, BMI 44.6 Patient was counseled on lifestyle modifications including diet modifications, exercise and hydration to decrease risk of further strokes and other cardiovascular disease. UTI We will do a course of oral Ceftin 250 mg b.i.d. for 5 days. DVT prophylaxis: Lovenox GI prophylaxis: None Diet: Heart healthy diet Disposition: Pending physical therapy evaluation/placement. Rehab consult placed. Social work for discharge planning.
[2018-07-26] MEDS: ATORVASTATIN 80 MG TAB PO SCH (20:53)
[2018-07-27 06:43] LABS: BUN Blood Urea Nitrogen 14 mg/dL (7-18); Bicarbonate 28 mmol/L (21-32); Glucose Level 119 mg/dL (74-106); Potassium 3.5 mmol/L (3.5-5.1); Sodium Level 141 mmol/L (136-145)
[2018-07-27] MEDS: INSULIN -REGULAR HUMAN 50 UNIT/0.5 ML ML SQ SCH ×4 (07:30→20:45)
[2018-07-27] MEDS ORDERED: POTASSIUM 25 MEQ EFFERV TAB PO ONE (09:00)
[2018-07-27] MEDS: INSULIN 70/30 100 UNITS/ML SQ SCH ×2 (09:18→17:16)
[2018-07-27] MEDS: ASPIRIN EC 81 MG TAB PO SCH (09:18)
[2018-07-27] MEDS: FOLIC ACID 1 MG TABLET PO SCH (09:18)
[2018-07-27] MEDS: CLOPIDOGREL 75 MG TABLET PO SCH (09:19)
[2018-07-27] MEDS: ENOXAPARIN 40 MG/0.4 ML SQ SCH (09:19)
[2018-07-27] MEDS: LISINOPRIL 10 MG TAB PO SCH (09:19)
[2018-07-27] MEDS: CEFUROXIME 250 MG TAB PO SCH ×2 (09:53→20:20)
--- NOTE | 2018-07-27 12:45 | P.PN ---
Subjective Date of Service: 07/27/18 Primary Care Provider: None Chief Complaint: Right sided weakness Subjective: No C/O voiced, Ambulating, Improving, Working w/ PT Patient seen and examined at bedside. No family at bedside. Chart reviewed and case discussed with nursing staff. No acute events noted overnight Review of Systems 10-point ROS is otherwise unremarkable Physical Examination - Vital Signs Temperature: 97 F Blood Pressure: 141/65 Pulse: 77 Respirations: 18 Pulse Ox (%): 94 - Physical Exam General: Alert, In no apparent distress, Oriented x3 HEENT: Atraumatic, PERRLA, EOMI Neck: Supple, JVD not distended Respiratory: Clear to auscultation bilaterally, Normal air movement Cardiovascular: Regular rate/rhythm, Normal S1 S2 Gastrointestinal: Normal bowel sounds, No tenderness Musculoskeletal: No tenderness Integumentary: No rashes Neurological: Normal speech, Normal tone, Normal affect, Other (Right upper and lower extremity drift improved) Lymphatics: No axilla or inguinal lymphadenopathy - Studies Microbiology Data (last 24 hrs): 07/22/18 10:20 Blood - Blood Aerobic Blood Culture - Final No growth in 5 days. 07/22/18 10:20 Blood - Blood Anaerobic Blood Culture - Final No growth in 5 days. 07/22/18 10:00 Blood - Blood Aerobic Blood Culture - Final No growth in 5 days. 07/22/18 10:00 Blood - Blood Anaerobic Blood Culture - Final No growth in 5 days. Assessment And Plan - Current Problems (Diagnosis) (1) CVA (cerebral vascular accident) Current Visit: Yes Status: Acute Qualifiers: CVA mechanism: unspecified Qualified Code(s): I63.9 - Cerebral infarction, unspecified (2) Diabetes mellitus Current Visit: Yes Status: Chronic Qualifiers: Diabetes mellitus type: type 2 Diabetes mellitus oil heaterman insulin use: with custodial use Diabetes mellitus complication status: with hyperglycemia Qualified Code(s): E11.65 - Type 2 diabetes mellitus with hyperglycemia; Z79.4 - custodial (current) use of insulin (3) Hypothyroid Current Visit: Yes Status: Chronic Qualifiers: Hypothyroidism type: unspecified Qualified Code(s): E03.9 - Hypothyroidism , unspecified (4) Hypertension Current Visit: Yes Status: Chronic Qualifiers: Hypertension type: essential hypertension Qualified Code(s): I10 - Essential (primary) hypertension (5) Noncompliance Current Visit: Yes Status: Acute - Plan This is a 48-year-old female with. Acute CVA, left internal capsule stroke, with basal ganglia involvement History of prior CVA, involving basal ganglia, unknown to patient Continue aspirin, Plavix, statin Continue folate 1 mg daily Speech therapy, physical therapy, occupation therapy consulted. Recommendations appreciated Neurology consulted, recommendations appreciated. Allow for permissive hypertension. Per social work, Patient without any resources, apparently does not meet criteria for rehab as she is working well with physical therapy. No insurance therefore she does not qualify for home health. Physical therapy to teach patient exercises so she could continue rehab at home. Information on volunteer rehab in [place] given to patient by social work. Hypertension Continue low-dose NIDA-inhibitor. Continue to monitor blood pressure Diabetes mellitus, type 2, with hyperglycemia, uncontrolled Strict blood sugar control likes line Accu-Cheks ACHS, mild scale insulin Will restart home insulin as well History of hypothyroidism, not on any medications Tsh elevated at 12 Started patient on levothyroxine 25 mcg daily. Noncompliance Counseled on importance of medication compliance Morbid obesity, BMI 44.6 Patient was counseled on lifestyle modifications including diet modifications, exercise and hydration to decrease risk of further strokes and other cardiovascular disease. UTI We will do a course of oral Ceftin 250 mg b.i.d. for 5 days. DVT prophylaxis: Lovenox GI prophylaxis: None Diet: Heart healthy diet Disposition: Medically stable. Continue to work with physical therapy on learning exercise for home. Social work for discharge planning.
[2018-07-27] MEDS: ATORVASTATIN 80 MG TAB PO SCH (20:20)
[2018-07-28] MEDS ORDERED: LEVOTHYROXINE SOD 0.025 MG TAB PO SCH (06:30)
[2018-07-28 06:34] LABS: Potassium 3.9 mmol/L (3.5-5.1)
[2018-07-28] MEDS: INSULIN -REGULAR HUMAN 50 UNIT/0.5 ML ML SQ SCH (07:30)
[2018-07-28] MEDS: INSULIN 70/30 100 UNITS/ML SQ SCH (08:00)
[2018-07-28] MEDS ORDERED: POTASSIUM 25 MEQ EFFERV TAB PO ONE (09:00)
[2018-07-28] MEDS: CEFUROXIME 250 MG TAB PO SCH (09:00)
[2018-07-28] MEDS: ASPIRIN EC 81 MG TAB PO SCH (09:12)
[2018-07-28] MEDS: ENOXAPARIN 40 MG/0.4 ML SQ SCH (09:12)
[2018-07-28] MEDS: FOLIC ACID 1 MG TABLET PO SCH (09:12)
[2018-07-28] MEDS: LISINOPRIL 10 MG TAB PO SCH (09:13)
[2018-07-28] MEDS: CLOPIDOGREL 75 MG TABLET PO SCH (09:13)
--- NOTE | 2018-07-29 00:19 | DS ---
Date of Discharge: 07/28/2018 Junior Business Analyst: Dr. Gonzalez with Neurology. Admitting Diagnoses: 1. Acute cerebrovascular accident. 2. Diabetes mellitus type 2, with long-term use of insulin, with hyperglycemia. 3. Hypothyroidism. 4. Morbid obesity. Discharge Diagnoses: 1. Acute cerebrovascular accident. 2. Diabetes mellitus type 2, with long-term use of insulin, with hyperglycemia. 3. Noncompliance. 4. Hypothyroidism. 5. Essential hypertension. 6. Morbid obesity, body mass index of 44.6. 7. Acute cystitis without hematuria secondary to Escherichia coli, treated with cephalosporin. 8. Dyslipidemia. Hospital Course: The patient is a 48-year-old female with past medical history of poorly controlled diabetes, hypertension, not on medications for years, and hypothyroidism, comes in with right-sided weakness, dizziness, and blurry vision. The patient was admitted to the hospital for further evaluation and workup. Her MRI did show acute and chronic CVAs, an 8-mm acute infarct in the left internal capsule. She also had an 8-mm area of abnormal signal within the left basal ganglia and left faust radiata representing an old infarct. She also had some right basal ganglia and left periventricular infarcts as well as a small old right cerebellar infarct. The patient was started on stroke guidelines. She was also seen by Dr. Gonzalez with Neurology who agreed with treatment. The patient's carotid artery ultrasound did not show any significant stenosis. Overall, she did well. She was able to work with Physical Therapy and was ambulating well. Her electrolytes remained stable. She did have some hypokalemia, which was corrected. Due to her lack of resources, she was unable to qualify for rehab and was doing too well for long-term facility placement. The patient was then set up with [facility] for indigent patients. Regarding her hypothyroidism, TSH was elevated at 12.2. Free T4 was normal. She was started on Synthroid. She will need to have primary care physician recheck her TSH level in 6 to 8 weeks and adjust her dose. Her cholesterol panel did show elevated triglycerides, LDL, and total cholesterol. She was counseled regarding her diet and exercise regimen as well as her obesity. The patient would be a good candidate for gastric bypass surgery once her acute issues have resolved. Echocardiogram was also done, which showed normal ejection fraction at 75%. No other abnormalities. The patient was then doing well. She was counseled regarding her diabetes. She was able to ambulate, felt significantly better. The patient was then discharged home and to follow up with long-term rehab in [place]. Medications: List reviewed. She will finish off course of antibiotics for her UTI. Followup: Follow up with primary care physician in 2 to 3 days. Follow up with neurologist, Dr. Gonzalez, in 2 weeks. Return to ER for worsening condition. Diet: Heart-healthy, diabetic diet. Activity: Fall precautions as tolerated. Physical Examination: General: Awake, alert, oriented, in no acute distress, morbidly obese female. CV: S1, S2. No murmurs. Respiratory: Moving air well bilaterally. Abdomen: Soft, nontender, nondistended. Positive bowel sounds. Extremities: No clubbing, cyanosis, or edema. Neurologic: Nonfocal. Total time spent dc pt was 33 mins /SIVA Voice ID: [id number] Report ID: [id number] BOB
== END 2018-07-28 11:36 | disposition home or self-care (01) | DRG 65 ==
LOC: ER 08:41 → ERHOLD 11:48 → 2ND 14:43 → OBSVTOIN 18:18
PROVIDERS: ADMIT Family Medicine; ATTEND Family Medicine
DX: I63.9 Cerebral infarction, unspecified (principal); Z68.41 Body mass index [BMI] 40.0-44.9, adult; N30.00 Acute cystitis without hematuria; E11.65 Type 2 diabetes mellitus with hyperglycemia; Z79.4 Long term (current) use of insulin; E03.9 Hypothyroidism, unspecified; I10 Essential (primary) hypertension; E66.01 Morbid (severe) obesity due to excess calories; B96.20 Unspecified Escherichia coli [E. coli] as the cause of diseases classified elsewhere; E78.5 Hyperlipidemia, unspecified; E87.6 Hypokalemia; Z91.14 Patient's other noncompliance with medication regimen
CPT/HCPCS: 36415; 70450; 70551; 71045; 80048; 80053; 80061; 81003; 81015; 82805; 82962; 83735; 84100; 84132; 84436; 84439; 84443; 84480; 84484; 85025; 85610; 85730; 87040; 87077; 87086; 87088; 87186; 87493; 92526; 92610; 93005; 93306; 93880; 94760; 96374; 96375; 97110; 97112; 97116; 97163; 97166; 99285; G0378; J1650; J7030

== ENCOUNTER 2018-11-29 14:00 | Emergency (ER) | payer SELFPAY ==
[2018-11-29] MEDS ORDERED: ONDANSETRON 4 MG/2 ML VIAL ONE (14:59)
[2018-11-29] MEDS ORDERED: MORPHINE 4 MG/ML SYR ONE ×2 (14:59→18:28)
[2018-11-29] MEDS ORDERED: NA CHLORIDE 0.9% 1,000 ML ONE ×2 (14:59→17:30)
[2018-11-29 15:13] LABS: Absolute Lymphocytes (CBC) 1.2 K/uL (0.7-4.9); Basophils % 0.6 % (0-1.3); Eosinophils % 0.1 % (0-4.4); Hematocrit 40.2 % (36.0-45.0); Lymphocytes % 4.7 % (15.3-44.8); MPV 8.3 fL (7.6-11.3); Monocytes % 7.1 % (3.3-12.3); RBC Red Blood Cell Count 4.72 M/uL (3.86-4.86)
[2018-11-29 15:30] LABS: Protime INR 1.2
[2018-11-29 15:49] LABS: Albumin 1.9 g/dL (3.4-5.0); Bilirubin Direct 0.2 mg/dL (0-0.2); Bilirubin Total 0.6 mg/dL (0.2-1.0); Magnesium 1.9 mg/dL (1.8-2.4); Protein, Total 7.5 g/dL (6.4-8.2); Troponin (Emerg Dept Use Only) 0.02 ng/mL (0.0-0.045)
[2018-11-29 16:22] LABS: Urine Blood 3+ (NEG); Urine Glucose 2+ (NEG); Urine Protein 2+ (NEG); Urine pH 5.5 (5.0-7.0)
[2018-11-29] MEDS ORDERED: CEFTRIAXONE/SWI 1gm 1 GM/10 ML SYR ONE (16:22)
[2018-11-29] MEDS ORDERED: POTASSIUM 25 MEQ EFFERV TAB ONE (16:22)
--- NOTE | 2018-11-29 16:54 | RAD REPORT ---
EXAM DESCRIPTION: CT - Head C Spine Cap W [place] - 11/29/2018 4:26 pm CLINICAL HISTORY: Fall, head, neck, chest and abdomen pain COMPARISON: CT head July 2018 TECHNIQUE: Axial [address] head images were obtained. Axial [address] cervical spine images were obtaine d with sagittal and coronal reconstruction images reviewed. During dynamic enhancement of 100mL non-i onic contrast, axial 5 mm images of the chest, abdomen and pelvis were obtained. All CT scans are performed using dose optimization technique as appropriate and may include automated exposure control or mA/KV adjustment according to patient size. FINDINGS: No intracranial hemorrhage, mass or edema. No midline shift or abnormal fluid collection. No acute cortical based infarction. Small focal areas of diminished attenuation are seen in the poste rior left frontal lobe white matter in the right anterior limb internal capsule region and in the manasa ction of the left thalamus and left posterior limb internal capsule. Findings match July a believ ed to be areas of small infarction change. There is diminished attenuation in the left cerebellum max t is potentially new from July. Ventricles are normal. Mastoid air cells are clear. No acute para nasal sinus finding. No skull fracture. CT cervical spine imaging shows normal height. Normal alignment of the vertebrae. No disc space narro wing. No paraspinal mass or hematoma seen. Central canal detail is inherently limited. Concerns for t raumatic disc herniation or traumatic cord injury can be further addressed with MR imaging. CT chest shows no pneumothorax, pulmonary contusion or pleural fluid collection. Atelectasis changes are present in the posteromedial right base. No mediastinal hematoma and the aorta and pulmonary celia dimitry are unremarkable. No chest will mass or abnormal axillary finding. No displaced rib fracture or other significant bony finding. The liver, spleen, pancreas, gallbladder, adrenal glands and biliary tree are normal. Gallstones can be occult on CT imaging. No acute bowel finding. Appendix is normal. Uterus and ovaries show no suspi cious findings. Left kidney and left collecting system show no suspicious findings. In the right side retroperitoneal fatty tissues along the lateral and posterior margin of the right k idney there is a 12 cm AP by 10 cm TR x 20 cm CC area of abnormal air. This involves the lateral sissy in of the right kidney. There is fluid in stranding present. Air is present in the pelvis and calices of the right kidney and in the mid right ureter. There is air within the lumen of the urinary bladde r. No bladder wall thickening or mass. No significant bony finding. Findings telephoned to the referring physician 1649 hours IMPRESSION: Very pronounced emphysematous pyelonephritis findings with a 20 x 12 x 10 centimeter are a of abnormal air in the retroperitoneal fat around the right kidney. This abnormal air extends outwa rd from the parenchyma of the kidney and there is air within the right ureter and urinary bladder. Old punctate infarction changes or chronic ischemic changes with no hemorrhage or acute intracranial finding. CT head findings are stable from July 2018. No significant CT Cervical Spine finding. No acute CT chest finding. No additional acute abdomen or pelvis finding.
--- NOTE | 2018-11-29 16:55 | ER ---
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 pt reports nausea/vomiting/diarrhea. Pt also states "I haven't been eating either". Pt states "I saw Dr. Perkins and he gave me Cipro on Friday". Pt states "I hurt everywhere". Transition of care: patient was not received from another setting of care. Onset of symptoms was 2018. Care prior to arrival: None. 14:11 Method Of Arrival: Wheelchair aa5 14:11 Acuity: ANDREA 3 aa5 17:30 Acuity: ANDREA 2 la1 TITLE CAMERA OPERATOR: 14:16 LMP N/A - Post-menopause aa5 Historical: - Allergies: 14:15 Ibuprofen; aa5 - PMHx: 14:15 Diabetes - NIDDM; Thyroid problem; CVA; aa5 - PSHx: 14:15 cyst removal - left shoulder; aa5 - Immunization history:: Flu vaccine is not up to date. - Social history:: Smoking status: Patient/guardian denies using tobacco. - Ebola Screening: : No symptoms or risks identified at this time. - Family history:: not pertinent. Screenin:56 Abuse screen: Denies threats or abuse. Denies injuries from another. Nutritional aj screening: No deficits noted. Tuberculosis screening: No symptoms or risk factors identified. Fall Risk None identified. Assessment: 14:56 General: Appears in no apparent distress. comfortable, obese, unkempt, Behavior is aj calm, cooperative, appropriate for age. Pain: Complains of pain in right lower quadrant and right upper quadrant and anterior aspect of right lateral abdomen and posterior aspect of right lateral abdomen. Neuro: Level of Consciousness is awake, alert, obeys commands, Oriented to person, place, time, situation, Appropriate for age Reports dizziness. Respiratory: Airway is patent Respiratory effort is even, unlabored, Respiratory pattern is regular, symmetrical. Derm: Skin is intact, is healthy with good turgor, Skin is pink, warm \\T\\ dry. normal. 14:56 GI: Reports diarrhea, nausea, vomiting. aj 15:40 Reassessment: Patient appears in no apparent distress at this time. No changes from aj previously documented assessment. Patient and/or family updated on plan of care and expected duration. Pain level reassessed. Patient is alert, oriented x 3, equal unlabored respirations, skin warm/dry/pink. Patient denies pain at this time. Patient states feeling better. Patient states symptoms have improved. 17:28 Reassessment: Patient appears in no apparent distress at this time. No changes from aj previously documented assessment. Patient and/or family updated on plan of care and expected duration. Pain level reassessed. Patient is alert, oriented x 3, equal unlabored respirations, skin warm/dry/pink. 18:06 Reassessment: report given to SANA Everett at [facility]. iw 18:11 Reassessment: Patient appears in no apparent distress at this time. No changes from aj previously documented assessment. Patient and/or family updated on plan of care and expected duration. Pain level reassessed. Patient is alert, oriented x 3, equal unlabored respirations, skin warm/dry/pink. Patient reports pain has increased. Requested pain medication. Awaiting provider order. 18:56 Reassessment: Patient appears in no apparent distress at this time. No changes from aj previously documented assessment. Patient and/or family updated on plan of care and expected duration. Pain level reassessed. Patient is alert, oriented x 3, equal unlabored respirations, skin warm/dry/pink. Report given to [facility] Patient states feeling better. Vital Signs: 14:16 BP 163 / 88; Pulse 119; Resp 18 S; Temp 98.0(O); Pulse Ox 95% on R/A; Weight 136.08 kg aa5 (R); Height 5 ft. 9 in. (175.26 cm) (R); Pain 8/10; 16:35 BP 165 / 79; Pulse 108; Resp 20; Temp 99.0; Pulse Ox 100% on R/A; aj 18:05 BP 167 / 72; Pulse 108; Resp 19; Temp 98.7; Pulse Ox 96% on R/A; aj 14:16 Body Mass Index 44.30 (136.08 kg, 175.26 cm) aa5 ED Course: 14:04 Patient arrived in ED. rg4 14:04 Michael Perkins MD is Private Physician. rg4 14:11 Arm band placed on. aa5 14:14 Triage completed. aa5 14:24 Cole Aviles MD is Attending Physician. [facility] 14:36 Noemí Houser, RN is Primary Nurse. aj 14:56 Patient has correct armband on for positive identification. Bed in low position. Call aj light in reach. Side rails up X 1. Adult w/ patient. 14:56 Inserted saline lock: 20 gauge in right antecubital area, using aseptic technique. aj Blood collected. 14:59 Basic Metabolic Panel Sent. aj 14:59 CBC with Diff Sent. aj 14:59 LFT's Sent. aj 14:59 Magnesium Sent. aj 14:59 NT PRO-BNP Sent. aj 15:00 Radiology exam delayed due to lab results not completed at this time. (BUN/Creatinine). kw1 15:00 PT-INR Sent. aj 15:00 NT PRO-BNP Sent. aj 15:00 Magnesium Sent. aj 15:00 Liver (Hepatic) Function Sent. aj 15:00 CBC with Automated Diff Sent. aj 15:00 Basic Metabolic Panel Sent. aj 15:05 XRAY Chest (1 view) In Process Unspecified. EDMS 15:20 EKG done, by ED staff, reviewed by Cole Aviles MD. 3 16:14 CT completed. Patient tolerated procedure well. Patient moved back from CT. kw1 16:26 CT Traumagram (Head C Spine CAP W Con) In Process Unspecified. EDMS 18:03 Assisted provider with central line placement. Set up central line tray. Triple lumen aj line placed in right femoral. Line placed by Noemí Houser assistant finance manager verified by blood return, Dressed with Tegaderm, Patient tolerated well. Before procedure, did Practitioner(s) obtain informed consent? Yes. Patient \\T\\ family education about procedure, CLABSI prevention and S/S of infection? Yes. Time-out/Briefing performed prior to start of procedure? Yes. Was handwashing/sanitizing done immediately prior to procedure? Yes. Was patient positioned to in a way to prevent air embolism? Yes. Was procedure site sterilized? Yes, with chlorhexidine. Was the site allowed to dry? Yes. Was local anesthetic and/or sedation utilized? Yes. During the procedure, did the Practitioner(s) maintain a sterile field? Yes. Were unused ports clamped during insertion? Yes. Was a 2nd qualified MD obtained after 3 unsuccessful insertion attempts? No. Was blood aspirated from each lumen? Yes. After the procedure, did the Practitioner(s) clean the site and apply a sterile dressing? Yes. 18:56 Patient transferred, IV remains in place. intact. aj Administered Medications: 14:58 Drug: NS 0.9% 1000 ml Route: IV; Rate: 1 bolus; Site: right antecubital; aj 19:01 Follow up: Response: No adverse reaction; IV Status: Completed infusion; IV Intake: aj 1000ml 14:58 Drug: morphine 2 mg Route: IVP; Site: right antecubital; aj 16:34 Follow up: Response: Pain is decreased aj 14:58 Drug: morphine 2 mg Route: IVP; Site: right antecubital; aj 16:33 Follow up: Response: Pain is decreased aj 14:58 Drug: Zofran 4 mg Route: IVP; Site: right antecubital; aj 16:34 Follow up: Response: No adverse reaction aj 16:32 Drug: Rocephin - (cefTRIAXone) 1 grams Route: IVPB; Infused Over: 30 mins; Site: right aj antecubital; 19:00 Follow up: Response: No adverse reaction; IV Status: Completed infusion; IV Intake: 10mlaj 16:33 Drug: Potassium Effervescent Tablet 50 mEq Route: PO; aj 19:01 Follow up: Response: No adverse reaction aj 17:09 CANCELLED (Duplicate Order): NS 0.9% 1000 ml IV at 125 ml/hr continuous yevgeniy 17:40 Drug: Cefepime 2 grams Route: IVPB; Rate: 200 ml/hr; Infused Over: 30 mins; Site: right aj antecubital; 18:59 Follow up: Response: No adverse reaction; IV Status: Completed infusion; IV Intake: 30mlaj 17:41 Drug: NS 0.9% 1000 ml Route: IV; Rate: 1 bolus; Site: right antecubital; aj 19:00 Follow up: Response: No adverse reaction; IV Status: Infusion continued upon transfer; aj IV Intake: 1000ml 17:41 Drug: vancoMYCIN 1 grams Route: IVPB; Infused Over: 2 hrs; Site: right antecubital; aj 18:58 Follow up: Response: No adverse reaction; IV Status: Infusion continued upon transfer; aj IV Intake: 133ml 18:01 Drug: Flagyl 500 mg Volume: 100 ml; Route: IVPB; Rate: 200 ml/hr; Infused Over: 30 aj mins; Site: right femoral; 18:58 Follow up: Response: No adverse reaction; IV Status: Completed infusion; IV Intake: aj 100ml 18:02 Drug: NS 0.9% with KCl 20 mEq/L 1000 ml Route: IV; Rate: 125 ml/hr; Site: right femoral;aj 18:57 Follow up: IV Status: Infusion continued upon transfer aj 18:17 Drug: morphine 4 mg Route: IVP; Site: right femoral; aj 18:57 Follow up: Response: Pain is decreased aj Intake: 18:58 IV: 100ml; Total: 100ml. aj 18:58 IV: 133ml; Total: 233ml. aj 18:59 IV: 30ml; Total: 263ml. aj 19:00 IV: 1000ml; Total: 1263ml. aj 19:00 IV: 10ml; Total: 1273ml. aj 19:01 IV: 1000ml; Total: 2273ml. aj Outcome: 16:54 ER care complete, transfer ordered by . yevgeniy 18:56 Transferred by ground EMS to [facility], Transfer form completed. aj X-rays sent w/ patient. 18:56 critical 18:56 Instructed on the need for admit. 19:02 Patient left the ED. aj Signatures: Dispatcher [employer] EDMS Noemí Houser RN RN aj Anderson, Corey, MD MD cha Williams, Irene, RN RN iw Calderon, Audri, RN RN aa5 Attema, Lee, RN RN la1 Garcia, Rubi rg4 Anjana Alvarado 3 Farida Hall kw1 Corrections: (The following items were deleted from the chart) 14:17 14:11 Presenting complaint: Patient states: "I've been so weak and having frequent aa5 falls and I just feel like shit". pt reports nausea/vomiting/diarrhea. Pt also states "I haven't been eating either". Pt states "I saw Dr. Perkins and he gave me Cipro on Friday" aa5
--- NOTE | 2018-11-29 16:55 | RAD REPORT ---
EXAM DESCRIPTION: RAD - Chest Single View - 11/29/2018 3:03 pm CLINICAL HISTORY: Weakness, multiple falls, shortness of breath, diabetes COMPARISON: July 2018 TECHNIQUE: AP portable chest image was obtained 1459 hours . FINDINGS: Lung volumes are very low accentuating heart, vasculature and lung markings. No significan t failure or volume overload. No acute lung parenchymal process seen. Heart and vasculature are alta l. No measurable pleural effusion and no pneumothorax. No acute bony abnormality seen. No acute aorti c findings suspected. IMPRESSION: No acute cardiopulmonary process.
--- NOTE | 2018-11-29 16:55 | EDPHYS ---
Physician Documentation [facility] Name: Dejah Francis Age: 48 yrs Sex: Female : 1970 Arrival Date: 11/29/2018 Time: 14:04 Bed 2 Private MD: Michael Perkins E ED Physician Cole Aviles HPI: 11/29 14:41 This 48 yrs old Female presents to ER via Wheelchair with complaints of yevgeniy General Weakness. 14:41 The patient presents with abdominal pain in the right upper quadrant, right lower yevgeniy quadrant. Onset: The symptoms/episode began/occurred 3 day(s) ago. Details of fall: The patient fell from an upright position, while walking. Onset: The symptoms/episode began/occurred just prior to arrival. Associated injuries: The patient sustained injury to the chest, injury to the abdomen. The patient has experienced near-syncope, almost passed out, felt dizzy. Onset: The symptoms/episode began/occurred 2 day(s) ago. Context: the episode(s) was witnessed, by family. The symptoms do not radiate. 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 - Social history:: Smoking status: Patient/guardian denies using tobacco. - Ebola Screening: : No symptoms or risks identified at this time. - Family history:: not pertinent. ROS: 14:41 Constitutional: Negative for fever, chills, and weight loss, Eyes: Negative for injury, yevgeniy pain, redness, and discharge, ENT: Negative for injury, pain, and discharge, Neck: Negative for injury, pain, and swelling, Cardiovascular: Negative for chest pain, palpitations, and edema, Respiratory: Negative for shortness of breath, cough, wheezing, and pleuritic chest pain, Back: Negative for injury and pain, : Negative for injury, bleeding, discharge, and swelling, MS/Extremity: Negative for injury and deformity, Skin: Negative for injury, rash, and discoloration, Neuro: Negative for headache, weakness, numbness, tingling, and seizure, Psych: Negative for depression, anxiety, suicide ideation, homicidal ideation, and hallucinations, Allergy/Immunology: Negative for hives, rash, and allergies, Endocrine: Negative for neck swelling, polydipsia, polyuria, polyphagia, and marked weight changes, Hematologic/Lymphatic: Negative for swollen nodes, abnormal bleeding, and unusual bruising. 14:41 Abdomen/GI: Positive for abdominal pain, abdominal cramps, of the posterior aspect of right lateral abdomen, anterior aspect of right lateral abdomen, right upper quadrant and right lower quadrant. Exam: 14:41 Constitutional: This is a well developed, well nourished patient who is awake, alert, yevgeniy and in no acute distress. Head/Face: Normocephalic, atraumatic. Eyes: Pupils equal round and reactive to light, extra-ocular motions intact. Lids and lashes normal. Conjunctiva and sclera are non-icteric and not injected. Cornea within normal limits. Periorbital areas with no swelling, redness, or edema. ENT: Nares patent. No nasal discharge, no septal abnormalities noted. Tympanic membranes are normal and external auditory canals are clear. Oropharynx with no redness, swelling, or masses, exudates, or evidence of obstruction, uvula midline. Mucous membranes moist. Neck: Trachea midline, no thyromegaly or masses palpated, and no cervical lymphadenopathy. Supple, full range of motion without nuchal rigidity, or vertebral point tenderness. No Meningismus. Chest/axilla: Normal chest wall appearance and motion. Nontender with no deformity. No lesions are appreciated. Cardiovascular: Regular rate and rhythm with a normal S1 and S2. No gallops, murmurs, or rubs. Normal PMI, no JVD. No pulse deficits. Respiratory: Lungs have equal breath sounds bilaterally, clear to auscultation and percussion. No rales, rhonchi or wheezes noted. No increased work of breathing, no retractions or nasal flaring. Back: No spinal tenderness. No costovertebral tenderness. Full range of motion. Skin: Warm, dry with normal turgor. Normal color with no rashes, no lesions, and no evidence of cellulitis. MS/ Extremity: Pulses equal, no cyanosis. Neurovascular intact. Full, normal range of motion. Neuro: Awake and alert, GCS 15, oriented to person, place, time, and situation. Cranial nerves II-XII grossly intact. Motor strength 5/5 in all extremities. Sensory grossly intact. Cerebellar exam normal. Normal gait. Psych: Awake, alert, with orientation to person, place and time. Behavior, mood, and affect are within normal limits. 14:41 Abdomen/GI: Inspection: distension, Bowel sounds: normal, Palpation: abdomen is soft and non-tender, Liver: no appreciated palpable abnormalities, Hernia: not appreciated. Vital Signs: 14:16 BP 163 / 88; Pulse 119; Resp 18 S; Temp 98.0(O); Pulse Ox 95% on R/A; Weight 136.08 kg aa5 (R); Height 5 ft. 9 in. (175.26 cm) (R); Pain 8/10; 16:35 BP 165 / 79; Pulse 108; Resp 20; Temp 99.0; Pulse Ox 100% on R/A; aj 18:05 BP 167 / 72; Pulse 108; Resp 19; Temp 98.7; Pulse Ox 96% on R/A; aj 14:16 Body Mass Index 44.30 (136.08 kg, 175.26 cm) aa5 Procedures: 17:59 Central Line: the site was prepped with Betadine, in sterile fashion, a triple lumen [facility] catheter was inserted, in the right femoral vein, in 2 attempts. placement was verified, by blood return, the site was dressed with using sterile technique, the patient tolerated the procedure, well. MDM: 14:24 Patient medically screened. [facility] 14:43 Data reviewed: vital signs, nurses notes, lab test result(s), EKG, radiologic studies, [facility] CT scan, plain films. 11/29 14:40 Order name: Basic Metabolic Panel [facility] 11/29 14:40 Order name: CBC with Diff [facility] 11/29 14:40 Order name: LFT's [facility] 11/29 14:40 Order name: Magnesium [facility] 11/29 14:40 Order name: NT PRO-BNP [facility] 11/29 14:40 Order name: PT-INR; Complete Time: 15:38 [facility] 11/29 14:40 Order name: Troponin (emerg Dept Use Only); Complete Time: 16:01 [facility] 11/29 14:40 Order name: Lipase; Complete Time: 16:01 [facility] 11/29 14:40 Order name: Urine Culture [facility] 11/29 14:43 Order name: Basic Metabolic Panel; Complete Time: 16:01 [facility] 11/29 14:43 Order name: CBC with Automated Diff; Complete Time: 18:43 [facility] 11/29 14:43 Order name: Liver (Hepatic) Function; Complete Time: 16:01 [facility] 11/29 14:43 Order name: Magnesium; Complete Time: 16:01 [facility] 11/29 14:43 Order name: NT PRO-BNP; Complete Time: 16:01 [facility] 11/29 14:40 Order name: XRAY Chest (1 view); Complete Time: 17:00 [facility] 11/29 14:40 Order name: CT Traumagram (Head C Spine CAP W Con); Complete Time: 17:00 [facility] 11/29 15:17 Order name: Manual Differential; Complete Time: 18:43 [facility] 11/29 15:41 Order name: Strep; Complete Time: 16:01 11/29 15:41 Order name: Flu; Complete Time: 16:12 11/29 15:45 Order name: Blood Culture Adult (2) [facility] 11/29 16:04 Order name: Urine Dipstick--Ancillary (enter results); Complete Time: 16:33 11/29 16:04 Order name: Urine --Ancillary (enter results); Complete Time: 16:33 11/29 16:49 Order name: Procalcitonin; Complete Time: 18:43 [facility] 11/29 16:49 Order name: Lactate; Complete Time: 18:43 [facility] 11/29 14:40 Order name: EKG; Complete Time: 14:44 [facility] 11/29 14:40 Order name: Cardiac monitoring; Complete Time: 14:59 [facility] 11/29 14:40 Order name: EKG - Nurse/Tech; Complete Time: 15:29 [facility] 11/29 14:40 Order name: IV Saline Lock; Complete Time: 14:59 [facility] 11/29 14:40 Order name: Labs collected and sent; Complete Time: 14:59 [facility] 11/29 14:40 Order name: O2 Per Protocol; Complete Time: 14:59 [facility] 11/29 14:40 Order name: O2 Sat Monitoring; Complete Time: 14:59 [facility] 11/29 14:40 Order name: Urine Dipstick-Ancillary (obtain specimen); Complete Time: 16:11 [facility] 11/29 16:52 Order name: IV Saline Lock - Large Bore; Complete Time: 17:07 yevgeniy Administered Medications: 14:58 Drug: NS 0.9% 1000 ml Route: IV; Rate: 1 bolus; Site: right antecubital; aj 19:01 Follow up: Response: No adverse reaction; IV Status: Completed infusion; IV Intake: aj 1000ml 14:58 Drug: morphine 2 mg Route: IVP; Site: right antecubital; aj 16:34 Follow up: Response: Pain is decreased aj 14:58 Drug: morphine 2 mg Route: IVP; Site: right antecubital; aj 16:33 Follow up: Response: Pain is decreased aj 14:58 Drug: Zofran 4 mg Route: IVP; Site: right antecubital; aj 16:34 Follow up: Response: No adverse reaction aj 16:32 Drug: Rocephin - (cefTRIAXone) 1 grams Route: IVPB; Infused Over: 30 mins; Site: right aj antecubital; 19:00 Follow up: Response: No adverse reaction; IV Status: Completed infusion; IV Intake: 10mlaj 16:33 Drug: Potassium Effervescent Tablet 50 mEq Route: PO; aj 19:01 Follow up: Response: No adverse reaction aj 17:09 CANCELLED (Duplicate Order): NS 0.9% 1000 ml IV at 125 ml/hr continuous [facility] 17:40 Drug: Cefepime 2 grams Route: IVPB; Rate: 200 ml/hr; Infused Over: 30 mins; Site: right aj antecubital; 18:59 Follow up: Response: No adverse reaction; IV Status: Completed infusion; IV Intake: 30mlaj 17:41 Drug: NS 0.9% 1000 ml Route: IV; Rate: 1 bolus; Site: right antecubital; aj 19:00 Follow up: Response: No adverse reaction; IV Status: Infusion continued upon transfer; aj IV Intake: 1000ml 17:41 Drug: vancoMYCIN 1 grams Route: IVPB; Infused Over: 2 hrs; Site: right antecubital; aj 18:58 Follow up: Response: No adverse reaction; IV Status: Infusion continued upon transfer; aj IV Intake: 133ml 18:01 Drug: Flagyl 500 mg Volume: 100 ml; Route: IVPB; Rate: 200 ml/hr; Infused Over: 30 aj mins; Site: right femoral; 18:58 Follow up: Response: No adverse reaction; IV Status: Completed infusion; IV Intake: aj 100ml 18:02 Drug: NS 0.9% with KCl 20 mEq/L 1000 ml Route: IV; Rate: 125 ml/hr; Site: right femoral;aj 18:57 Follow up: IV Status: Infusion continued upon transfer aj 18:17 Drug: morphine 4 mg Route: IVP; Site: right femoral; aj 18:57 Follow up: Response: Pain is decreased aj Disposition: 11/29/18 16:54 Transfer ordered to [facility]. 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 - Reason for transfer: Higher level of care. - Accepting physician is to [facility]. - Condition is Serious. - Problem is new. - Symptoms have improved. Signatures: Dispatcher [employer] Noemí Shirley RN RN aj Anderson, Corey, MD MD cha Calderon, Audri, RN RN aa5 Corrections: (The following items were deleted from the chart) 16:56 16:54 11/29/2018 16:54 Transfer ordered to [facility]. 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 Reason for transfer: Higher level of care. Accepting physician is to [facility]. Condition is Serious. Problem is new. Symptoms have improved. yevgeniy 17:09 16:50 NS 0.9% 1000 ml IV at 125 ml/hr continuous ordered. yevgeniy yevgeniy 19:02 16:56 11/29/2018 16:54 Transfer ordered to [facility]. 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 Reason for transfer: Higher level of care. Accepting physician is to [facility]. Condition is Serious. Problem is new. Symptoms have improved. yevgeniy
[2018-11-29] MEDS ORDERED: CEFEPIME/SWI 2gm 2 GM/20 ML SYR IV ONE (17:00)
[2018-11-29] MEDS ORDERED: VANCOMYCIN/NS 1 gm 1 GM/250 ML BAG IV ONE (17:00)
[2018-11-29] MEDS ORDERED: METRONIDAZOLE 500mg IVPB 500 MG/100 ML BAG IV ONE (17:30)
[2018-11-29] MEDS ORDERED: NS KCL 20MEQ 1,000 ML IV ONE (17:30)
[2018-11-29 17:39] LABS: Blood Morphology Comment NOT SEEN (NOT SEEN); Platelet Estimate INCR
[2018-11-29] MEDS ORDERED: NS 0.9% VIAL 30 ML ONE (18:02)
--- NOTE | 2018-11-30 07:54 | EKG ---
Test Date: 2018-11-29 Test Time: 15:19:31 Seasonal Sales Associate: JOSE ALBERTO MEASUREMENT RESULTS: Intervals: Rate: 107 WV: 184 QRSD: 98 QT: 300 QTc: 400 Tatamy: P: 46 WV: 184 QRS: 77 T: 4 INTERPRETIVE STATEMENTS: Sinus tachycardia Possible Left atrial enlargement Nonspecific T wave abnormality Abnormal ECG Compared to ECG 07/22/2018 10:25:51 T-wave abnormality now present Sinus rhythm no longer present Myocardial infarct finding no longer present Electronically Signed On 11-30-18 07:53:18 CDT by Ignacio Dunlap
== END 2018-11-29 19:02 | disposition short-term general hospital (02) ==
LOC: ER 14:00
PROC: 06HM33Z Insertion of Infusion Device into Right Femoral Vein, Percutaneous Approach (ICD-10-PCS; principal; 2018-11-29)
DX: N10 Acute pyelonephritis (principal); D72.829 Elevated white blood cell count, unspecified; R55 Syncope and collapse; E11.9 Type 2 diabetes mellitus without complications; E66.9 Obesity, unspecified; R29.6 Repeated falls; Z88.6 Allergy status to analgesic agent
CPT/HCPCS: 36415; 70450; 71045; 71260; 72125; 74177; 80048; 80076; 81003; 81025; 83605; 83690; 83735; 83880; 84145; 84484; 85025; 85610; 87040; 87077; 87081; 87086; 87088; 87186; 87205; 87804; 93005; 99285; J0692; J0696; J2405; J3370; J7030; Q9967

== ENCOUNTER 2018-12-16 09:29 | Emergency (ER) | payer SELFPAY ==
--- OUTSIDE RECORDS SUMMARY | 2018-12-16 09:32 | XMS REPORT | Clinical Summary ---
:1970 Author Organization [facility] Address [address] [place] [address] Care Team Providers Name Role Phone Maddie Michael Gilbertseven Primary Care Provider Allergies Active Allergy Reactions Severity Noted Date Comments Ibuprofen (Bulk) Anaphylaxis High 05/12/2013 Medications Medication Sig Dispensed Refills Start Date End Date Status hydroCHLOROthiazide Take 1 tablet 90 tablet 3 12/11/2018 Active (HYDRODIURIL) 25 MG (25 mg total) 0 tablet by mouth daily. levothyroxine (SYNTHROID, Take 0.5 45 tablet 0 12/11/2018 Active LEVOTHROID) 75 MCG tablet tablets (37.5 0 mcg total) by mouth Every morning on an empty stomach. lisinopril Take 1 tablet 90 tablet 3 12/11/2018 Active (PRINIVIL,ZESTRIL) 20 MG (20 mg total) 0 tablet by mouth daily. metFORMIN (GLUCOPHAGE) Take 1 tablet 180 tablet 0 12/10/2018 Active 500 MG tablet (500 mg total) 0 by mouth 2 (two) times daily with breakfast and dinner. metoprolol (LOPRESSOR) Take 1 tablet 180 tablet 3 12/10/2018 Active 100 MG tablet (100 mg total) 0 by mouth 2 (two) times daily. oxybutynin (DITROPAN) 5 Take 1 tablet 90 tablet 0 12/10/2018 Active MG tablet (5 mg total) 0 by mouth 3 (three) times daily as needed (bladder spasms). traMADol (ULTRAM) 50 mg Take 1 tablet 15 tablet 0 12/10/2018 Active tablet (50 mg total) 9 by mouth every 6 (six) hours as needed for up to 10 days. Max Daily Amount: 200 mg cefdinir (OMNICEF) 300 MG Take 1 capsule 6 capsule 0 12/10/2018 capsule (300 mg total) 9 by mouth 2 (two) times daily for 3 days. Active Problems Problem Noted Date Pyelonephritis 11/30/2018 Resolved Problems Problem Noted Date Resolved Date Severe sepsis 11/30/2018 12/08/2018 Encounters Date Type Specialty Care Team Description 12/09/2018 Orders Only General Internal Medicine 12/08/2018 Anesthesia Event Anh Beyerne 12/08/2018 Surgery Cameron Jean, CYSTOSCOPY,INSERTION MD URETERAL STENTS 11/29/2018 - Hospital Cardiology Luis Starr Severe sepsis (HCC); 12/10/2018 Encounter MD William Emphysematous pyelonephritis of right kidney; Atif, Insulin dependent diabetes mellitus (HCC); Gab Pyelonephritis due to Escherichia coli MD Reanna Dunne Heather Renee, MD Vaughan, [place] Anders MD 11/29/2018 Telephone Critical Care Luis Starr Fever Medicine MD William after 12/15/2017 Family History Medical History Relation Name Comments Diabetes Father Hypertension Father Diabetes Mother Hypertension Mother Relation Name Status Comments Father Alive Mother Social History Tobacco Use Types Packs/Day Years Used Date Never Smoker Alcohol Use Drinks/Week oz/Week Comments No Alcohol Habits Answer Date Recorded How often do you have a drink containing alcohol? Never 12/03/2018 How many drinks containing alcohol do you have on a typical Not asked day when you are drinking? How often do you have six or more drinks on one occasion? Not asked Sex Assigned at Date Recorded Not on file Job Start Date Occupation Industry Not on file Not on file Not on file Travel History Travel Start Travel End No recent travel history available. Last Filed Vital Signs Vital Sign Reading Time Taken Blood Pressure 138/72 12/10/2018 11:00 AM CDT Pulse 80 12/10/2018 11:46 AM CDT Temperature 36.3 C (97.3 F) 12/10/2018 11:00 AM CDT Respiratory Rate 18 12/10/2018 11:46 AM CDT Oxygen Saturation 95% 12/10/2018 11:46 AM CDT Inhaled Oxygen Concentration - - Weight 136.1 kg (300 lb) 12/04/2018 12:13 PM CDT Height 175.3 cm (5' 9") 12/04/2018 12:13 PM CDT Body Mass Index 44.3 12/04/2018 12:13 PM CDT Plan of Treatment Not on file Implants Implanted Type Area Guide Dog Trainer Device Shelf Model / Identifier Expiration Serial / Date Lot Stent Uret Cntour Inj [id number] - [id number] IMPLANTS Right: [place] 12/15/2019 [id number] / Implanted: Qty: 1 on 12/08/2018 by Cameron Jaen MD [employer] SCI:UROLOGY/ GYNE / COLOGY [id number] Procedures Procedure Name Priority Date/Time Associated Comments Diagnosis REPORT OF PROCEDURE - 12/14/2018 11:50 ENDOSCOPY SCAN AM CDT RHYTHM STRIP - SCAN 12/14/2018 11:50 AM CDT POCT-GLUCOSE METER Routine 12/10/2018 10:59 Results for this AM CDT procedure are in the results section. POCT-GLUCOSE METER Routine 12/10/2018 7:22 Results for this AM CDT procedure are in the results section. CBC W/PLT COUNT & Routine 12/10/2018 4:21 Results for this AUTO DIFFERENTIAL AM CDT procedure are in the results section. MAGNESIUM Routine 12/10/2018 4:21 Results for this AM CDT procedure are in the results section. BASIC METABOLIC PANEL Routine 12/10/2018 4:21 Results for this (7) AM CDT procedure are in the results section. CBC W/PLT COUNT & Routine 12/10/2018 4:21 Results for this AUTO DIFFERENTIAL AM CDT procedure are in the results section. POCT-GLUCOSE METER Routine 12/09/2018 9:39 Results for this PM CDT procedure are in the results section. ECG 12-LEAD Routine 12/09/2018 5:15 Results for this PM CDT procedure are in the results section. ECG 12-LEAD Routine 12/09/2018 5:15 PM CDT Procedure Note - Interface, External Ris In - 12/09/2018 5:25 PM CDT Ventricular Rate 98 BPM Atrial Rate 98 BPM P-R Interval 168 ms QRS Duration 88 ms Q-T Interval 370 ms QTC Calculation(Bazett) 472 ms P [place] 51 degrees [place] 49 degrees [place] 80 degrees Normal sinus rhythm Normal ECG No previous ECGs available POCT-GLUCOSE METER Routine 12/09/2018 4:02 PM Results for this CDT procedure are in the results section. URINE CULTURE Routine 12/09/2018 2:34 PM Results for this CDT procedure are in the results section. CBC W/PLT COUNT & AUTO GLENN 12/09/2018 2:31 PM Results for this DIFFERENTIAL CDT procedure are in the results section. CBC W/PLT COUNT & AUTO GLENN 12/09/2018 2:31 PM Results for this DIFFERENTIAL CDT procedure are in the results section. BLOOD CULTURE Routine 12/09/2018 2:31 PM Results for this CDT procedure are in the results section. BLOOD CULTURE Routine 12/09/2018 2:31 PM Results for this CDT procedure are in the results section. POCT-GLUCOSE METER Routine 12/09/2018 9:57 AM Results for this CDT procedure are in the results section. POCT-GLUCOSE METER Routine 12/09/2018 9:02 AM Results for this CDT procedure are in the results section. (CELLAVISION MANUAL Routine 12/09/2018 5:16 AM Results for this DIFF) CDT procedure are in the results section. CBC W/PLT COUNT & AUTO Routine 12/09/2018 5:16 AM Results for this DIFFERENTIAL CDT procedure are in the results section. MAGNESIUM Routine 12/09/2018 5:16 AM Results for this CDT procedure are in the results section. BASIC METABOLIC PANEL Routine 12/09/2018 5:16 AM Results for this (7) CDT procedure are in the results section. CBC W/PLT COUNT & AUTO Routine 12/09/2018 5:16 AM Results for this DIFFERENTIAL CDT procedure are in the results section. ANAEROBIC CULTURE Routine 12/08/2018 10:13 PM Results for this CDT procedure are in the results section. SURGICALLY OBTAINED Routine 12/08/2018 10:13 PM Results for this CULTURE + GRAM STAIN CDT procedure are in the results section. FL SAP BUSINESS INTELLIGENCE CONSULTANT IN OR 30 GLENN 12/08/2018 9:56 PM Results for this MINUTE INCREMENTS CDT procedure are in the results section. POCT-GLUCOSE METER Routine 12/08/2018 8:08 PM Results for this CDT procedure are in the results section. SCREEN, URINE Routine 12/08/2018 8:08 PM Results for this CDT procedure are in the results section. POCT-GLUCOSE METER Routine 12/08/2018 5:12 PM Results for this CDT procedure are in the results section. CYSTOSCOPY,INSERTION 12/08/2018 3:00 PM Hydronephrosis, URETERAL STENTS CDT right Special Needs REQ TF POCT-GLUCOSE METER Routine 12/08/2018 12:59 PM CDT US RENAL COMPLETE STAT 12/08/2018 9:06 AM CDT CBC W/PLT COUNT & AUTO Routine 12/08/2018 5:32 AM CDT Results for this DIFFERENTIAL procedure are in the results section. MAGNESIUM Routine 12/08/2018 5:32 AM CDT BASIC METABOLIC PANEL (7) Routine 12/08/2018 5:32 AM CDT CBC W/PLT COUNT & AUTO Routine 12/08/2018 5:32 AM CDT Results for this DIFFERENTIAL procedure are in the results section. POCT-GLUCOSE METER Routine 12/07/2018 9:33 PM CDT POCT-GLUCOSE METER Routine 12/07/2018 5:28 PM CDT POCT-GLUCOSE METER Routine 12/07/2018 12:02 PM CDT POCT-GLUCOSE METER Routine 12/07/2018 8:42 AM CDT CBC W/PLT COUNT & AUTO Routine 12/07/2018 5:59 AM CDT Results for this DIFFERENTIAL procedure are in the results section. MAGNESIUM Routine 12/07/2018 5:59 AM CDT BASIC METABOLIC PANEL (7) Routine 12/07/2018 5:59 AM CDT CBC W/PLT COUNT & AUTO Routine 12/07/2018 5:59 AM CDT Results for this DIFFERENTIAL procedure are in the results section. POCT-GLUCOSE METER Routine 12/06/2018 9:43 PM CDT POCT-GLUCOSE METER Routine 12/06/2018 4:49 PM CDT CREATININE, BODY FLUID Routine 12/06/2018 11:48 AM CDT POCT-GLUCOSE METER Routine 12/06/2018 11:32 AM CDT POCT-GLUCOSE METER Routine 12/06/2018 8:13 AM CDT CBC W/PLT COUNT & AUTO Routine 12/06/2018 5:36 AM CDT Results for this DIFFERENTIAL procedure are in the results section. CBC W/PLT COUNT & AUTO Routine 12/06/2018 5:36 AM CDT Results for this DIFFERENTIAL procedure are in the results section. MAGNESIUM Routine 12/06/2018 5:35 AM CDT BASIC METABOLIC PANEL (7) Routine 12/06/2018 5:35 AM CDT POCT-GLUCOSE METER Routine 12/05/2018 9:11 PM CDT POCT-GLUCOSE METER Routine 12/05/2018 4:45 PM CDT POCT-GLUCOSE METER Routine 12/05/2018 12:34 PM CDT POCT-GLUCOSE METER Routine 12/05/2018 7:55 AM CDT CBC W/PLT COUNT & AUTO Routine 12/05/2018 6:13 AM CDT Results for this DIFFERENTIAL procedure are in the results section. MAGNESIUM Routine 12/05/2018 6:13 AM CDT BASIC METABOLIC PANEL (7) Routine 12/05/2018 6:13 AM CDT CBC W/PLT COUNT & AUTO Routine 12/05/2018 6:13 AM CDT Results for this DIFFERENTIAL procedure are in the results section. POCT-GLUCOSE METER Routine 12/04/2018 9:29 PM CDT POCT-GLUCOSE METER Routine 12/04/2018 5:18 PM CDT POCT-GLUCOSE METER Routine 12/04/2018 4:08 PM CDT IR DRAINAGE CATHETER CHANGE Routine 12/04/2018 2:00 PM CDT POCT-GLUCOSE METER Routine 12/04/2018 8:17 AM CDT CBC W/PLT COUNT & AUTO Routine 12/04/2018 6:26 AM CDT Results for this DIFFERENTIAL procedure are in the results section. MAGNESIUM Routine 12/04/2018 6:26 AM CDT BASIC METABOLIC PANEL (7) Routine 12/04/2018 6:26 AM CDT CBC W/PLT COUNT & AUTO Routine 12/04/2018 6:26 AM CDT Results for this DIFFERENTIAL procedure are in the results section. POCT-GLUCOSE METER Routine 12/03/2018 10:06 PM CDT POCT-GLUCOSE METER Routine 12/03/2018 5:02 PM CDT POCT-GLUCOSE METER Routine 12/03/2018 12:35 PM CDT POCT-GLUCOSE METER Routine 12/03/2018 11:37 AM CDT POCT-GLUCOSE METER Routine 12/03/2018 7:37 AM CDT CBC W/PLT COUNT & AUTO Routine 12/03/2018 3:12 AM CDT Results for this DIFFERENTIAL procedure are in the results section. MAGNESIUM Routine 12/03/2018 3:12 AM CDT BASIC METABOLIC PANEL (7) Routine 12/03/2018 3:12 AM CDT CBC W/PLT COUNT & AUTO Routine 12/03/2018 3:12 AM CDT Results for this DIFFERENTIAL procedure are in the results section. POCT-GLUCOSE METER Routine 12/02/2018 10:26 PM CDT POCT-GLUCOSE METER Routine 12/02/2018 5:35 PM CDT POCT-GLUCOSE METER Routine 12/02/2018 4:[address] ABDOMEN/PELVIS WITHOUT IV Routine 12/02/2018 3:39 PM CDT Results for this CONTRAST procedure are in the results section. POCT-GLUCOSE METER Routine 12/02/2018 12:14 PM CDT POCT-GLUCOSE METER Routine 12/02/2018 9:13 AM CDT CBC W/PLT COUNT & AUTO STAT 12/02/2018 4:42 AM CDT Results for this DIFFERENTIAL procedure are in the results section. IRON, TIBC, % SAT. (WITHOUT Routine 12/02/2018 4:42 AM CDT Results for this FERRITIN) procedure are in the results section. VITAMIN B12 Routine 12/02/2018 4:42 AM CDT MAGNESIUM Routine 12/02/2018 4:42 AM CDT CBC W/PLT COUNT & AUTO STAT 12/02/2018 4:42 AM CDT Results for this DIFFERENTIAL procedure are in the results section. BASIC METABOLIC PANEL (7) STAT 12/02/2018 4:42 AM CDT POCT-GLUCOSE METER Routine 12/01/2018 11:12 PM CDT TRANSFUSION SERVICE REPORT - 12/01/2018 5:51 PM CDT SCAN POCT-GLUCOSE METER Routine 12/01/2018 5:00 PM CDT POCT-GLUCOSE METER Routine 12/01/2018 10:58 AM CDT POCT-GLUCOSE METER Routine 12/01/2018 7:38 AM CDT CBC W/PLT COUNT & AUTO STAT 12/01/2018 4:28 AM CDT Results for this DIFFERENTIAL procedure are in the results section. VANCOMYCIN LEVEL, TROUGH Timed 12/01/2018 4:28 AM CDT MAGNESIUM Routine 12/01/2018 4:28 AM CDT CBC W/PLT COUNT & AUTO STAT 12/01/2018 4:28 AM CDT Results for this DIFFERENTIAL procedure are in the results section. BASIC METABOLIC PANEL (7) STAT 12/01/2018 4:28 AM CDT POCT-GLUCOSE METER Routine 11/30/2018 10:17 PM CDT MAGNESIUM Routine 11/30/2018 9:47 PM CDT BASIC METABOLIC PANEL (7) Routine 11/30/2018 9:47 PM CDT XR CHEST 1 VIEW Routine 11/30/2018 7:31 PM CDT Results for this PORTABLE/BEDSIDE procedure are in the results section. TRANSFUSION SERVICE REPORT - 11/30/2018 5:51 PM CDT SCAN POCT-GLUCOSE METER Routine 11/30/2018 5:11 PM CDT SCREEN, URINE STAT 11/30/2018 12:08 PM CDT POCT-GLUCOSE METER Routine 11/30/2018 11:06 AM CDT POCT-GLUCOSE METER Routine 11/30/2018 6:29 AM CDT CBC W/PLT COUNT & AUTO STAT 11/30/2018 4:46 AM CDT Results for this DIFFERENTIAL procedure are in the results section. CBC W/PLT COUNT & AUTO STAT 11/30/2018 4:46 AM CDT Results for this DIFFERENTIAL procedure are in the results section. BASIC METABOLIC PANEL (7) STAT 11/30/2018 4:46 AM CDT LACTIC ACID, VENOUS Routine 11/30/2018 4:46 AM CDT LACTIC ACID, VENOUS STAT 11/30/2018 12:21 AM CDT BODY FLUID CELL COUNT WITH Routine 11/30/2018 12:21 AM CDT Results for this DIFFERENTIAL procedure are in the results section. FUNGUS CULTURE + SMEAR Routine 11/30/2018 12:21 AM CDT BODY FLUID CULTURE + GRAM Routine 11/30/2018 12:21 AM CDT Results for this STAIN procedure are in the results section. CT DRAINAGE ABDOMINAL STAT 11/30/2018 12:11 AM CDT ABORH, MANUAL STAT 11/29/2018 9:58 PM CDT BLOOD CULTURE STAT 11/29/2018 9:12 PM CDT (CELLAVISION MANUAL DIFF) GLENN 11/29/2018 9:09 PM CDT CBC W/PLT COUNT & AUTO GLENN 11/29/2018 9:09 PM CDT Results for this DIFFERENTIAL procedure are in the results section. ABORH, MANUAL Routine 11/29/2018 9:09 PM CDT TYPE AND SCREEN, AUTOMATED Routine 11/29/2018 9:09 PM CDT T4, FREE Routine 11/29/2018 9:09 PM CDT TSH/FREE T4 IF INDICATED STAT 11/29/2018 9:09 PM CDT HEMOGLOBIN A1C STAT 11/29/2018 9:09 PM CDT URINALYSIS W/ REFLEX URINE STAT 11/29/2018 9:09 PM CDT Results for this CULTURE procedure are in the results section. CBC W/PLT COUNT & AUTO STAT 11/29/2018 9:09 PM CDT Results for this DIFFERENTIAL procedure are in the results section. APTT STAT 11/29/2018 9:09 PM CDT PROTHROMBIN TIME/INR STAT 11/29/2018 9:09 PM CDT PHOSPHORUS STAT 11/29/2018 9:09 PM CDT MAGNESIUM STAT 11/29/2018 9:09 PM CDT BASIC METABOLIC PANEL (7) STAT 11/29/2018 9:09 PM CDT PROCALCITONIN STAT 11/29/2018 9:09 PM CDT LACTIC ACID, VENOUS STAT 11/29/2018 9:09 PM CDT URINE CULTURE STAT 11/29/2018 9:09 PM CDT BLOOD CULTURE STAT 11/29/2018 9:09 PM CDT POCT-GLUCOSE METER Routine 11/29/2018 8:39 PM CDT after 12/15/2017 Results EKG-SCANNED (12/14/2018 11:50 AM CDT) Narrative Performed At RHYTHM STRIP - SCAN (12/14/2018 11:50 AM CDT) Narrative Performed At POC-Glucose meter (12/10/2018 10:59 AM CDT)Only the most recent of44 resultswithin the time period is included. POC-Glucose Meter 249 (H)Comment: TESTED AT 70 - 110 mg/dL [facility] [address] [facility] [id number] Specimen Blood Performing Organization Address City/State/Zipcode Phone Number [address] [address] CENTER CBC with platelet count + automated diff (12/10/2018 4:21 AM CDT)Only the most recent of13 resultswithin the time period is included. WBC 14.7 (H) 3.5 - 10.5 K/L [facility] RBC 4.13 3.93 - 5.22 M/L [facility] Hemoglobin 11.6 11.2 - 15.7 GM/DL [facility] Hematocrit 36.8 34.1 - 44.9 % [facility] MCV 89.1 79.4 - 94.8 fL [facility] MCH 28.1 25.6 - 32.2 pg [facility] MCHC 31.5 (L) 32.2 - 35.5 GM/DL [facility] RDW 14.3 11.7 - 14.4 % [facility] Platelets 394 150 - 450 K/CU MM [facility] MPV 8.9 (L) 9.4 - 12.3 fL [facility] nRBC 0 0 - 0 /100 WBC [facility] % Neutros 75 % [facility] % Lymphs 15 % [facility] % Monos 8 % [facility] % Eos 1 % [facility] % Baso 0 % [facility] # Neutros 10.95 (H) 1.56 - 6.13 K/L [facility] # Lymphs 2.21 1.18 - 3.74 K/L [facility] # Monos 1.20 (H) 0.24 - 0.36 K/L [facility] # Eos 0.18 0.04 - 0.36 K/L [facility] # Baso 0.05 0.01 - 0.08 K/L [facility] Immature 1 0 - 1 % [facility] Specimen Blood Performing Organization Address City/State/Zipcode Phone Number [address] [address] CENTER Magnesium (12/10/2018 4:21 AM CDT)Only the most recent of12 resultswithin the time period is included. Magnesium 1.7 1.6 - 2.6 mg/dL [facility] Specimen Blood Performing Organization Address City/[facility]/Zipcode Phone Number [address] [address] [phone] CENTER Basic Metabolic Panel (12/10/2018 4:21 AM CDT)Only the most recent of13 resultswithin the time period is included. Sodium 134 (L) 136 - 145 meq/L [facility] Potassium 3.8 3.5 - 5.1 meq/L [facility] Chloride 100 98 - 107 meq/L [facility] CO2 27 22 - 29 meq/L [facility] BUN 7 7 - 21 mg/dL [facility] Creatinine 0.71 0.57 - 1.25 mg/dL [facility] Glucose 208 (H) 70 - 105 mg/dL [facility] Calcium 9.1 8.4 - 10.2 mg/dL [facility] EGFR 87Comment: ESTIMATED GFR IS mL/min/1.73 sq m [facility] NOT ACCURATE [facility] CLEARANCE IN PREDICTING GLOMERULAR FILTRATION RATE. ESTIMATED GFR IS NOT APPLICABLE FOR DIALYSIS PATIENTS. Specimen Blood Performing Organization Address City/[facility] Phone Number [facility] [address] [place] [address] CENTER ECG 12 lead (12/09/2018 5:15 PM CDT) Specimen Narrative Performed At Ventricular Rate 98 BPM GE MUSE Atrial Rate 98 BPM P-R Interval 168 ms QRS Duration 88 ms Q-T Interval 370 ms QTC Calculation(Bazett) 472 ms [place] 51 degrees [place] 49 degrees [place] 80 degrees Normal sinus rhythm Cannot exclude old inferior infarct Nonspecific T wave abnormality Prolonged QT No previous ECGs available Confirmed by MD FENG, DULCE ([id number]) on 12/10/2018 8:27:25 PM Procedure Note Interface, External Ris In - 12/10/2018 8:27 PM CDT Ventricular Rate 98 BPM Atrial Rate 98 BPM P-R Interval 168 ms QRS Duration 88 ms Q-T Interval 370 ms QTC Calculation(Bazett) 472 ms [place] 51 degrees [place] 49 degrees [place] 80 degrees Normal sinus rhythm Cannot exclude old inferior infarct Nonspecific T wave abnormality Prolonged QT No previous ECGs available Confirmed by MD TONEY YOCHAI ([id number]) on 12/10/2018 8:27:25 PM Performing Organization Address City/[facility] Phone Number [email or web address] Urine culture (12/09/2018 2:34 PM CDT)Only the most recent of2 resultswithin the time period is included. Result No growth [facility] Gram Stain Result 1+ WBCs [facility] Gram Stain Result <1+ gram positive rods [facility] Specimen Urine Performing Organization Address City/[facility] Phone Number [facility] [address], [place] [phone] CENTER Blood Culture - Routine (Left Venipuncture) (12/09/2018 2:31 PM CDT)Only the most recent of4 resultswithin the time period is included. Result No growth in 5 days [facility] Specimen Blood Performing Organization Address City/[facility] Phone Number [facility] [address] [place] [address] [phone] CENTER Manual Differential (12/09/2018 5:16 AM CDT)Only the most recent of2 resultswithin the time period is included. % Neutros 89 % [facility] % Lymphs 8 % [facility] % Monos 2 % [facility] % Eos 1 % [facility] # Neutros 21.45 (H) 1.56 - 6.13 K/ul [facility] # Lymphs 1.93 1.18 - 3.74 K/ul [facility] # Monos 0.48 (H) 0.24 - 0.36 K/uL [facility] # Eos 0.24 0.04 - 0.36 K/uL [facility] Total Counted 100 [facility] WBC Morphology Normal [facility] Platelet Morphology Normal [facility] Polychromasia 1+ few [facility] Artifact Present [facility] Platelet Conc Increased [facility] Specimen Blood Narrative Performed At Received comment: [facility] User comments: Slide comments: Performing Organization Address [place]/[facility]/Zipcode Phone Number [facility] [address] [place] [phone] CENTER Anaerobic culture (12/08/2018 10:13 PM CDT) Result No anaerobes isolated [facility] Specimen Body Fluid Performing Organization Address [place]/[facility] Phone Number [facility] [address], [place] [phone] [place] Surgically obtained culture + gram stain (12/08/2018 10:13 PM CDT) Result No growth [facility] Gram Stain Result <1+ White blood cells seen [facility] Gram Stain Result No organisms seen [facility] Specimen Wound Performing Organization Address [place]/[facility]/Zipcode Phone Number [facility] [address] [place] [phone] [place] radio program checker in or 30 minute increments (12/08/2018 9:56 PM CDT) Specimen Narrative Performed At PROCEDURE PERFORMED IN O.R. - PLEASE REFER TO THE INTRAOPERATIVE GE RIS REPORT. Procedure Note Interface, External Ris In - 12/14/2018 1:45 PM CDT PROCEDURE PERFORMED IN O.R. - PLEASE REFER TO THE INTRAOPERATIVE REPORT. Performing Organization Address [place]/[facility] [place] Phone Number GE RIS Screen, urine (12/08/2018 8:08 PM CDT)Only the most recent of2 resultswithin the time period is included. Preg Test, Ur Negative [facility] Specimen Urine - Urine, Sterile Collection Performing Organization Address City/[facility]/Zipcode Phone Number [facility] [address] [place] [address] [phone] [place] US renal complete (12/08/2018 9:06 AM CDT) Specimen Narrative Performed At FINAL REPORT [employer] RIS Renal ultrasound dated 12/08/2018 Comment:Real-time transabdominal renal ultrasound was performed. Right kidney measures 13.8 x 6 x 5.1 cm.Left kidney measures 12.5 x 5.1 x 5.5 cm.Right renal cortex measures 2.2 cm.Left renal cortex measures 1.7 cm. Echogenicity of both renal parenchyma is normal.. No hydronephrosis, solid or cystic mass seen. The urinary bladder measures 29 cc. A complex echogenic area is seen in the upper pole right kidney measuring approximately 5.6 x 2.4 0.9 cm. Doppler ultrasound demonstrates patent main renal artery and vein bilaterally. Impression:Unremarkable renal ultrasound. Signed: Mónica Moya MD Report Verified Date/Time:12/08/2018 09:54:36 Reading Location: [address] [address] Radiology Reading Room Procedure Note Interface, External Ris In - 12/08/2018 9:56 AM CDT FINAL REPORT Renal ultrasound dated 12/08/2018 Comment: Real-time transabdominal renal ultrasound was performed. Right kidney measures 13.8 x 6 x 5.1 cm. Left kidney measures 12.5 x 5.1 x 5.5 cm. Right renal cortex measures 2.2 cm. Left renal cortex measures 1.7 cm. Echogenicity of both renal parenchyma is normal.. No hydronephrosis, solid or cystic mass seen. The urinary bladder measures 29 cc. A complex echogenic area is seen in the upper pole right kidney measuring approximately 5.6 x 2.4 0.9 cm. Doppler ultrasound demonstrates patent main renal artery and vein bilaterally. Impression: Unremarkable renal ultrasound. Signed: Mónica Moya MD Report Verified Date/Time: 12/08/2018 09:54:36 Reading Location: [address] Radiology Reading Room Performing Organization Address City/State/Zipcode Phone Number [facility] Creatinine, body fluid (12/06/2018 11:48 AM CDT) Creat, Fluid 26.08 mg/dL [facility] Specimen Body Fluid Narrative Performed At Reference Range:No Normals [facility] Assay performance has not been validated for this type of specimen. Performing Organization Address City/[facility]/Zipcode Phone Number [facility] [address] [place] [address] CENTER IR Drainage Catheter Change (12/04/2018 2:00 PM CDT) Specimen Narrative Performed At FINAL REPORT [facility] Right perirenal drain examination Pertinent clinical information: Upsized drainage catheter Comparison : November 29, 2018 Modality: Fluoroscopy, seven image(s) submitted for interpretation. Conscious Sedation: No sedation Anesthesia:Two percent Lidocaine injected subcutaneously at the insertion site. Approach: Right flank Labs sent: Negative Antibiotics: The patient is currently on antibiotics Fluoro time (in minutes): 0.6 minutesNumber of images: Seven images Technique:After informed written consent was obtained, the patient was prepped and draped in the usual sterile manner.Access was obtainedthrough the existing catheter.Contrast was injected through the catheter access site.An amorphous collection was visualized through the 8 [place] drain. The catheter was exchanged over a guidewire. A 10 [place] catheter was placed.. The catheter was manipulated with contrast monitoring. The patient tolerated the procedure well.The patient left the department in the same condition. Impression: Successful, uncomplicated upsizing of a right perinephric drain. Signed: Martita Vo MD Report Verified Date/Time:12/04/2018 15:35:20 Reading Location: [place] [address] Angio Body Reading Room Procedure Note Interface, External Ris In - 12/04/2018 3:37 PM CDT FINAL REPORT Right perirenal drain examination Pertinent clinical information: Upsized drainage catheter Comparison : November 29, 2018 Modality: Fluoroscopy, seven image(s) submitted for interpretation. Conscious Sedation: No sedation Anesthesia: Two percent Lidocaine injected subcutaneously at the insertion site. Approach: Right flank Labs sent: Negative Antibiotics: The patient is currently on antibiotics Fluoro time (in minutes): 0.6 minutes Number of images: Seven images Technique: After informed written consent was obtained, the patient was prepped and draped in the usual sterile manner. Access was obtained through the existing catheter. Contrast was injected through the catheter access site. An amorphous collection was visualized through the 8 [place] drain. The catheter was exchanged over a guidewire. A 10 [place] catheter was placed.. The catheter was manipulated with contrast monitoring. The patient tolerated the procedure well. The patient left the department in the same condition. Impression: Successful, uncomplicated upsizing of a right perinephric drain. Signed: Martita Vo MD Report Verified Date/Time: 12/04/2018 15:35:20 Reading Location: [facility] Angio Body Reading Room Performing Organization Address City/State/Zipcode Phone Number [facility] abdomen/pelvis without iv contrast (12/02/2018 3:39 PM CDT) Specimen Narrative Performed At FINAL REPORT [facility] ABDOMINAL AND PELVIS CT DATED 12/02/2018 COMPARISON: November 29, 2018 CLINICAL INFORMATION:Hydronephrosis TECHNIQUE:Axial images of the abdomen and pelvis were obtained from diaphragm to the pubic symphysis without GI or intravenous contrast. This exam was performed according to our departmental dose-optimization program, which includes automated exposure control, adjustment of the mA and/or kV according to patient size and/or use of interactive reconstruction technique. COMMENT: There is trace right pleural effusion right lower lobe subsegmental atelectasis. Liver and spleen are normal in size without focal abnormality. Gallbladder is contracted. No gallstone or biliary dilatation is noted. Pancreas and adrenals are unremarkable. Both kidneys are normal in size. No hydronephrosis, hydroureter, urolithiasis is noted. A cystic lesion is seen in the mid upper pole right kidney measuring approximately 3.4 x 3.3 cm suggestive of renal cyst or calyceal diverticulum. There is interval placement of a percutaneous drainage catheter within the right Gerota's fascia. Complex collection is seen within the right Gerota's fascia measuring approximately 3.8 x 9.2 x 11.8 cm, previously 6.7 x 9.5 x 2.5 cm. The small and large bowel are suboptimally evaluated secondary to lack of GI and intravenous contrast. Diverticular disease is seen in the large bowel without diverticulitis. No small or large bowel dilatation is seen. Appendix is not visualized. Uterus and ovaries are unremarkable. IMPRESSION: 1. Trace right pleural effusion with right lower lobe subsegmental atelectasis. 2. Cystic lesion in the mid upper pole right kidney suggestive of renal cyst or calyceal diverticulum. 3. Interval decrease in size of complex collection within the right Gerota's fascia following drainage catheter placement. Signed: Mónica Moya MD Report Verified Date/Time:12/02/2018 16:07:37 Reading Location: [facility] B1 C013Y CT Body Reading Room Procedure Note Interface, External Ris In - 12/02/2018 4:09 PM CDT FINAL REPORT ABDOMINAL AND PELVIS CT DATED 12/02/2018 COMPARISON: November 29, 2018 CLINICAL INFORMATION: Hydronephrosis TECHNIQUE: Axial images of the abdomen and pelvis were obtained from diaphragm to the pubic symphysis without GI or intravenous contrast. This exam was performed according to our departmental dose-optimization program, which includes automated exposure control, adjustment of the mA and/or kV according to patient size and/or use of interactive reconstruction technique. COMMENT: There is trace right pleural effusion right lower lobe subsegmental atelectasis. Liver and spleen are normal in size without focal abnormality. Gallbladder is contracted. No gallstone or biliary dilatation is noted. Pancreas and adrenals are unremarkable. Both kidneys are normal in size. No hydronephrosis, hydroureter, urolithiasis is noted. A cystic lesion is seen in the mid upper pole right kidney measuring approximately 3.4 x 3.3 cm suggestive of renal cyst or calyceal diverticulum. There is interval placement of a percutaneous drainage catheter within the right Gerota's fascia. Complex collection is seen within the right Gerota's fascia measuring approximately 3.8 x 9.2 x 11.8 cm, previously 6.7 x 9.5 x 2.5 cm. The small and large bowel are suboptimally evaluated secondary to lack of GI and intravenous contrast. Diverticular disease is seen in the large bowel without diverticulitis. No small or large bowel dilatation is seen. Appendix is not visualized. Uterus and ovaries are unremarkable. IMPRESSION: 1. Trace right pleural effusion with right lower lobe subsegmental atelectasis. 2. Cystic lesion in the mid upper pole right kidney suggestive of renal cyst or calyceal diverticulum. 3. Interval decrease in size of complex collection within the right Gerota's fascia following drainage catheter placement. Signed: Mónica Moya MD Report Verified Date/Time: 12/02/2018 16:07:37 Reading Location: [facility] B1 C013Y CT Body Reading Room Performing Organization Address City/[facility] Phone Number [facility] Iron, TIBC, % sat. (without ferritin) (12/02/2018 4:42 AM CDT) Iron 23.0 (L) 40.0 - 160.0 ug/dL [facility] TIBC 189 (L) 250 - 450 ug/dL [facility] Iron % Saturation 12 (L) 20 - 55 % [facility] Specimen Blood Performing Organization Address [place]/[facility]code Phone Number [address] [address] [phone] CENTER Vitamin B12 (12/02/2018 4:42 AM CDT) Vitamin B12 1,104 (H) 213 - 816 pg/mL [facility] Specimen Blood Performing Organization Address [place]/[facility] Cliniccout Phone Number [address] [address] [place] TRANSFUSION SERVICE REPORT - SCAN (12/01/2018 5:51 PM CDT)Only the most recent of2 resultswithin the time period is included. Narrative Performed At Vancomycin level, trough (12/01/2018 4:28 AM CDT) Vancomycin Tr 16.2 10.0 - 20.0 ug/mL [facility] Specimen Blood Performing Organization Address [place]/[facility] Phone Number [address] [address] [phone] CENTER XR chest 1 view portable / bedside (11/30/2018 7:31 PM CDT) Specimen Narrative Performed At FINAL REPORT [facility] INDICATION: Hypoxia TECHNIQUE: Chest radiograph, single view, portable technique. FINDINGS / IMPRESSION: Heart shadow is enlarged and there is central pulmonary venous congestion. No overt pulmonary edema and no pleural effusion demonstrated. Right hemidiaphragm mildly elevated. No pneumothorax. Signed: Edson Byrne MD Report Verified Date/Time:11/30/2018 21:22:48 Reading Location: [facility] B1 C013W Consult Reading Room Procedure Note Interface, External Ris In - 11/30/2018 9:25 PM CDT FINAL REPORT INDICATION: Hypoxia TECHNIQUE: Chest radiograph, single view, portable technique. FINDINGS / IMPRESSION: Heart shadow is enlarged and there is central pulmonary venous congestion. No overt pulmonary edema and no pleural effusion demonstrated. Right hemidiaphragm mildly elevated. No pneumothorax. Signed: Edson Byrne MD Report Verified Date/Time: 11/30/2018 21:22:48 Reading Location: [facility] B1 C013W Consult Reading Room Performing Organization Address City/State/Zipcode Phone Number GE RIS Lactic acid, venous, Daily (11/30/2018 4:46 AM CDT)Only the most recent of3 resultswithin the time period is included. Lactate, Venous 1.0 0.5 - 2.2 mmol/L [facility] Specimen Blood Performing Organization Address City/State/Zipcode Phone Number [address] [address] [phone] CENTER Body fluid culture + gram stain (11/30/2018 12:21 AM CDT) Result 1+ Escherichia coli (A) [facility] Gram Stain Result 2+ White blood cells seen [facility] Gram Stain Result No organisms seen [facility] Specimen Body Fluid Organism Antibiotic Method Susceptibility Escherichia coli Amikacin <=2: Susceptible Escherichia coli Ampicillin + Sulbactam <=2: Susceptible Escherichia coli Aztreonam <=1: Susceptible Escherichia coli Cefepime <=1: Susceptible Escherichia coli Cefoxitin <=4: Susceptible Escherichia coli Ceftazidime <=1: Susceptible Escherichia coli Ceftriaxone <=1: Susceptible Escherichia coli Ertapenem <=0.5: Susceptible Escherichia coli Gentamicin <=1: Susceptible Escherichia coli Levofloxacin >=8: Resistant Escherichia coli Meropenem <=0.25: Susceptible Escherichia coli Piperacillin + Tazobactam <=4: Susceptible Escherichia coli Tetracycline >=16: Resistant Escherichia coli Tobramycin <=1: Susceptible Escherichia coli Trimethoprim + Sulfamethoxazole >=320: Resistant Performing Organization Address City/[facility] Phone Number [facility] [address] [place] [address] [place] Body fluid cell count with differential (11/30/2018 12:21 AM CDT) Appearance Hazy (A) Clear [facility] Color Brown (A) Colorless, Straw [facility] RBCs 144,000 (H) <=1 /cu mm [facility] Adjusted WBC Count 87,753 (H) <=5 /cu mm [facility] Lining Cells 0 <=1 /cu mm [facility] % Segs 100 % [facility] % Lymphs 0 % [facility] % Monos 0 % [facility] % Eos 0 % [facility] % Baso 0 % [facility] Container Body Fluid EDTA Tube [facility] Specimen Body Fluid Performing Organization Address City/[facility] Phone Number [facility] [address] [place] [address] [phone] [place] [address] drainage abdominal (11/30/2018 12:11 AM CDT) Specimen Narrative Performed At FINAL REPORT [facility] CT guided drainage catheter placement, 11/29/2018. Clinical History: Emphysematous pyelonephritis. Modality: CT. Boardinghouse Keeper:Ember. Oxidation Engineer:None. Conscious sedation: None. Estimated Blood Loss:Less than 1 cc ml. Technique: After informed consent was obtained, which included the risks of bleeding, infection, injury to adjacent structures/bowel, adverse medication reaction, the patient's abdomen was scanned, after reviewing the previous outside CT from the same day.This exam was performed according to our departmental dose-optimization program which includes automated exposure control, adjustment of the mA and/or kV according to patient size and/or use of iterative reconstruction technique. The scan demonstrates large air collection lateral and posterior to the right kidney with a collection of contrast adjacent to the calyx suggestive of urinoma.After the skin was prepped and draped in the usual sterile manner, and local anesthesia was achieved with 1% lidocaine, a a 19-gauge Chiba needle was advanced into the air and contrast collection under CT guidance. Aftera small skin incision was made, a guidewire was advanced into the fluid collection. Subsequently, a soft tissue tract was created with 8 [place] dilator. After the tract was dilated, an 8.5 [place] all-purpose drainage catheter was placed into the collection. The wire was then removed, and the pigtail of the catheter was locked. Approximately 10 cc of bloody fluid was drained. The fluid sample was sent for laboratory analysis.Evaluation of the area after the procedure reveals pigtail to terminate in collection with decreased size of the urinoma. The catheter was then secured onto the skin with suture. A DALTON bulb was attached to the catheter, to drain via suction. The patient tolerated the procedure well, without immediate complications. The patient's vital signs remained stable throughout the procedure. Patient disposition: The patient was discharged from the department in stable condition. Impression: Successful and uncomplicated CT guided drainage catheter placement into right perinephric air collection with excreted contrast suggestive of urinoma. Signed: Jacob Pa MD Report Verified Date/Time:12/01/2018 17:21:29 Reading Location: [address] Body Reading Room Procedure Note Interface, External Ris In - 12/01/2018 5:23 PM CDT FINAL REPORT CT guided drainage catheter placement, 11/29/2018. Clinical History: Emphysematous pyelonephritis. Modality: CT. Boardinghouse Keeper: Ember. Oxidation Engineer: None. Conscious sedation: None. Estimated Blood Loss: Less than 1 cc ml. Technique: After informed consent was obtained, which included the risks of bleeding, infection, injury to adjacent structures/bowel, adverse medication reaction, the patient's abdomen was scanned, after reviewing the previous outside CT from the same day. This exam was performed according to our departmental dose-optimization program which includes automated exposure control, adjustment of the mA and/or kV according to patient size and/or use of iterative reconstruction technique. The scan demonstrates large air collection lateral and posterior to the right kidney with a collection of contrast adjacent to the calyx suggestive of urinoma. After the skin was prepped and draped in the usual sterile manner, and local anesthesia was achieved with 1% lidocaine, a a 19-gauge Chiba needle was advanced into the air and contrast collection under CT guidance. After a small skin incision was made, a guidewire was advanced into the fluid collection. Subsequently, a soft tissue tract was created with 8 [place] dilator. After the tract was dilated, an 8.5 [place] all-purpose drainage catheter was placed into the collection. The wire was then removed, and the pigtail of the catheter was locked. Approximately 10 cc of bloody fluid was drained. The fluid sample was sent for laboratory analysis. Evaluation of the area after the procedure reveals pigtail to terminate in collection with decreased size of the urinoma. The catheter was then secured onto the skin with suture. A DALTON bulb was attached to the catheter, to drain via suction. The patient tolerated the procedure well, without immediate complications. The patient's vital signs remained stable throughout the procedure. Patient disposition: The patient was discharged from the department in stable condition. Impression: Successful and uncomplicated CT guided drainage catheter placement into right perinephric air collection with excreted contrast suggestive of urinoma. Signed: Jacob Pa MD Report Verified Date/Time: 12/01/2018 17:21:29 Reading Location: [place] [address] Angio Body Reading Room Performing Organization Address City/State/Zipcode Phone Number GE RIS ABORH, manual (11/29/2018 9:58 PM CDT)Only the most recent of2 resultswithin the time period is included. ABO Grouping A [facility] Rh Factor POS [facility] Specimen Blood Performing Organization Address City/[facility]/Zipcode Phone Number [facility] [address] [place] [address] Procalcitonin (11/29/2018 9:09 PM CDT) Procalcitonin 0.28 (H) <0.05 ng/mL [facility] Specimen Blood Narrative Performed At SEPSIS RISK (ng/mL) [facility] Low:0.05-0.50 Intermediate: 0.51-2.00 High: >=2.01 Performing Organization Address [place]/[facility] Phone Number [address] [address] CENTER Urinalysis w/Microscopic + Reflex to Culture (11/29/2018 9:09 PM CDT) Color, UA [place] [facility] Clarity, UA Cloudy [facility] Specific [place], UA 1.021 1.001 - 1.035 [facility] pH, UA 6.0 5.0 - 8.0 [facility] Protein, UA 300 mg/dL (A) Negative [facility] Glucose, UA 500 mg/dL (A) Negative [facility] Ketones, UA 60 mg/dL (A) Negative [facility] Bilirubin, UA Negative Negative [facility] Blood, UA Large (A) Negative [facility] Nitrite, UA Negative Negative [facility] Leukocytes, UA Large (A) Negative [facility] Urobilinogen, UA 0.2 0.2 - 1.0 mg/dL [facility] RBC, UA 970 /HPF [facility] WBC, UA 1,940 /HPF [facility] Specimen Source [facility] Specimen Urine Performing Organization Address [place]/[facility] Phone Number [address] [address] CENTER Type and screen, automated (11/29/2018 9:09 PM CDT) Ab Scrn NEGATIVEComment: echo 1 [facility] Specimen Blood Performing Organization Address City/[facility] Phone Number [address] [phone] TSH/Free T4 If Indicated (11/29/2018 9:09 PM CDT) TSH 10.96 (H) 0.35 - 4.94 uIU/mL [facility] Specimen Blood Performing Organization Address [place]/[facility] Phone Number [address] [address] CENTER aPTT (11/29/2018 9:09 PM CDT) PTT 29.3 22.5 - 36.0 seconds [facility] Specimen Blood Performing Organization Address City/[facility] Phone Number [address] [address] [phone] CENTER Prothrombin time/INR (11/29/2018 9:09 PM CDT) Protime 14.3 (H) 11.9 - 14.2 seconds [facility] INR 1.2 <=5.9 [facility] Specimen Blood Narrative Performed At Effective 11/04/2018: PT Reference Range [facility] Change New: 11.9-14.2Previous: 11.7-14.7 RECOMMENDED COUMADIN/WARFARIN INR THERAPY RANGES STANDARD DOSE: 2.0-3.0Includes: PROPHYLAXIS for venous thrombosis, systemic embolization; TREATMENT for venous thrombosis and/or pulmonary embolus. HIGH RISK: Target INR is 2.5-3.5 for patients wiht mechanical heart valves. Performing Organization Address [place]/[facility] Phone Number [address] [address] [phone] CENTER T4, free (11/29/2018 9:09 PM CDT) Free T4 0.77 0.70 - 1.48 ng/dL [facility] Specimen Blood Performing Organization Address City/[facility] Phone Number [address] [address] [phone] [place] Phosphorus (11/29/2018 9:09 PM CDT) Phosphorus 2.5 2.3 - 4.7 mg/dL [facility] Specimen Blood Performing Organization Address City/State/[facility] Phone Number [address] [address] [place] Hemoglobin A1c (11/29/2018 9:09 PM CDT) Hemoglobin A1C 9.8 (H) 4.3 - 6.1 % [facility] Specimen Blood Performing Organization Address City/[facility] Phone Number [address] [address] [place] after 12/15/2017 Advance Directives For more information, please contact:[address] [phone] Code Status Date Activated Date Inactivated Comments Full Code 11/29/2018 8:30 PM 12/10/2018 6:13 PM This code status was determined by: Patient
--- OUTSIDE RECORDS SUMMARY | 2018-12-16 09:34 | XMS REPORT ---
:1970 [facility] Address [address] [place] [address] Care Team Providers Name Role Phone CLAUDE GALLARDO Unavailable Unavailable Problems This patient has no known problems. Allergies, Adverse Reactions, Alerts This patient has no known allergies or adverse reactions. Medications This patient has no known medications. Results Test Description Test Time Test Comments Text Results Atomic Results Result Comments ANAEROBIC CULTURE 2018-12-15 04:12:00 Test Item Value Reference Range Comments CULTURE (BEAKER) (test aqvq=9386) No anaerobes isolated BLOOD [id number] 20:01:00 Test Item Value Reference Range Comments CULTURE (BEAKER) (test aqdt=7751) No growth in 5 days BLOOD [id number] 20:01:00 Test Item Value Reference Range Comments CULTURE (BEAKER) (test nkcg=5140) No growth in 5 days [place], CONTROL MANAGER IN OR/30 MINUTE [id number] 13:45:00Reason for exam:-> PT IN OR FOR CYSTO STENTPROCEDURE PERFORMED IN O.R. - PLEASE REFER TO THE INTRAOPERATIVE REPORT. URINE [id number] 15:59:00 Test Item Value Reference Range Comments CULTURE (BEAKER) (test jnma=6025) No growth GRAM STAIN RESULT (BEAKER) (test 1+ WBCs exqs=2412) GRAM STAIN RESULT (BEAKER) (test <1+ gram positive rods exrj=70641) SURGICALLY OBTAINED CULTURE + GRAM [id number] 15:35:00 Test Item Value Reference Range Comments CULTURE (BEAKER) (test hmee=4150) No growth GRAM STAIN RESULT (BEAKER) (test <1+ White blood cells seen afui=7376) GRAM STAIN RESULT (BEAKER) (test No organisms seen fryy=62650) POCT-GLUCOSE [id number] 11:23:00 Test Item Value Reference Range Comments POC-GLUCOSE METER (BEAKER) 249 mg/dL 70-[address] [facility] [address] [facility] (test ejbh=8967) [facility] [address] POCT-GLUCOSE [id number] 07:31:00 Test Item Value Reference Range Comments POC-GLUCOSE METER (BEAKER) 192 mg/dL 70-110 TESTED AT [address] (test ijcj=5635) [facility] [address] [id number] 05:21:00 Test Item Value Reference Range Comments MAGNESIUM (BEAKER) (test ztaf=290) 1.7 mg/dL 1.6-2.6 BASIC METABOLIC [id number] 05:21:00 Test Item Value Reference Range Comments SODIUM (BEAKER) (test 134 meq/L 136-145 rvow=563) POTASSIUM (BEAKER) (test 3.8 meq/L 3.5-5.1 ypvz=593) CHLORIDE (BEAKER) (test 100 meq/L 98-107 nnki=202) CO2 (BEAKER) (test 27 meq/L 22-29 unze=270) BLOOD UREA NITROGEN 7 mg/dL 7-21 (BEAKER) (test zogv=516) CREATININE (BEAKER) (test 0.71 mg/dL 0.57-1.25 lcpt=703) GLUCOSE RANDOM (BEAKER) 208 mg/dL 70-105 (test hwcc=578) CALCIUM (BEAKER) (test 9.1 mg/dL 8.4-10.2 fctt=498) EGFR (BEAKER) (test 87 mL/min/1.73 sq m ESTIMATED GFR IS NOT dejb=2023) ACCURATE CREATININE CLEARANCE IN PREDICTING GLOMERULAR FILTRATION RATE. ESTIMATED GFR IS NOT APPLICABLE FOR DIALYSIS PATIENTS. CBC W/PLT COUNT & AUTO [id number] 05:11:00 Test Item Value Reference Range Comments WHITE BLOOD CELL COUNT (BEAKER) (test vuzr=974) 14.7 K/ L 3.5-10.5 RED BLOOD CELL COUNT (BEAKER) (test fyjv=256) 4.13 M/ L 3.93-5.22 HEMOGLOBIN (BEAKER) (test fbyh=749) 11.6 GM/DL 11.2-15.7 HEMATOCRIT (BEAKER) (test rbmq=929) 36.8 % 34.1-44.9 MEAN CORPUSCULAR VOLUME (BEAKER) (test usns=046) 89.1 fL 79.4-94.8 MEAN CORPUSCULAR HEMOGLOBIN (BEAKER) (test 28.1 pg 25.6-32.2 arph=986) MEAN CORPUSCULAR HEMOGLOBIN CONC (BEAKER) (test 31.5 GM/DL 32.2-35.5 hjrk=464) RED CELL DISTRIBUTION WIDTH (BEAKER) (test 14.3 % 11.7-14.4 tosf=297) PLATELET COUNT (BEAKER) (test iasz=273) 394 K/CU MM 150-450 MEAN PLATELET VOLUME (BEAKER) (test rywj=088) 8.9 fL 9.4-12.3 NUCLEATED RED BLOOD CELLS (BEAKER) (test 0 /100 WBC 0-0 hcmr=859) NEUTROPHILS RELATIVE PERCENT (BEAKER) (test 75 % mkfr=638) LYMPHOCYTES RELATIVE PERCENT (BEAKER) (test 15 % armj=226) MONOCYTES RELATIVE PERCENT (BEAKER) (test 8 % lxya=525) EOSINOPHILS RELATIVE PERCENT (BEAKER) (test 1 % uuar=351) BASOPHILS RELATIVE PERCENT (BEAKER) (test 0 % pwec=054) NEUTROPHILS ABSOLUTE COUNT (BEAKER) (test 10.95 K/ L 1.56-6.13 rcri=439) LYMPHOCYTES ABSOLUTE COUNT (BEAKER) (test 2.21 K/ L 1.18-3.74 ypmm=096) MONOCYTES ABSOLUTE COUNT (BEAKER) (test 1.20 K/ L 0.24-0.36 keqa=520) EOSINOPHILS ABSOLUTE COUNT (BEAKER) (test 0.18 K/ L 0.04-0.36 qrng=310) BASOPHILS ABSOLUTE COUNT (BEAKER) (test 0.05 K/ L 0.01-0.08 wmwh=633) IMMATURE GRANULOCYTES-RELATIVE PERCENT (BEAKER) 1 % 0-1 (test ferg=0161) POCT-GLUCOSE [id number] 21:59:00 Test Item Value Reference Range Comments POC-GLUCOSE METER (BEAKER) 171 mg/dL 70-[address] [facility] [address] [facility] (test ezlh=6064) [facility] [address] POCT-GLUCOSE [id number] 16:04:00 Test Item Value Reference Range Comments POC-GLUCOSE METER (BEAKER) 249 mg/dL 70-[address] [facility] [address] [facility] (test brll=9832) [facility] [address] CBC W/PLT COUNT & AUTO [id number] 14:58:00 Test Item Value Reference Range Comments WHITE BLOOD CELL COUNT (BEAKER) (test uqcx=329) 14.3 K/ L 3.5-10.5 RED BLOOD CELL COUNT (BEAKER) (test lykq=865) 4.12 M/ L 3.93-5.22 HEMOGLOBIN (BEAKER) (test dmnl=838) 11.8 GM/DL 11.2-15.7 HEMATOCRIT (BEAKER) (test cmpl=070) 36.6 % 34.1-44.9 MEAN CORPUSCULAR VOLUME (BEAKER) (test qewf=323) 88.8 fL 79.4-94.8 MEAN CORPUSCULAR HEMOGLOBIN (BEAKER) (test 28.6 pg 25.6-32.2 zrdf=971) MEAN CORPUSCULAR HEMOGLOBIN CONC (BEAKER) (test 32.2 GM/DL 32.2-35.5 yreo=217) RED CELL DISTRIBUTION WIDTH (BEAKER) (test 14.1 % 11.7-14.4 dnka=413) PLATELET COUNT (BEAKER) (test mphc=525) 416 K/CU MM 150-450 MEAN PLATELET VOLUME (BEAKER) (test wtbi=209) 9.0 fL 9.4-12.3 NUCLEATED RED BLOOD CELLS (BEAKER) (test 0 /100 WBC 0-0 cylu=755) NEUTROPHILS RELATIVE PERCENT (BEAKER) (test 78 % rgoq=403) LYMPHOCYTES RELATIVE PERCENT (BEAKER) (test 13 % rryi=309) MONOCYTES RELATIVE PERCENT (BEAKER) (test 7 % umdr=119) EOSINOPHILS RELATIVE PERCENT (BEAKER) (test 1 % ooqb=735) BASOPHILS RELATIVE PERCENT (BEAKER) (test 0 % fpop=678) NEUTROPHILS ABSOLUTE COUNT (BEAKER) (test 11.15 K/ L 1.56-6.13 vblv=857) LYMPHOCYTES ABSOLUTE COUNT (BEAKER) (test 1.90 K/ L 1.18-3.74 xvrc=116) MONOCYTES ABSOLUTE COUNT (BEAKER) (test 1.03 K/ L 0.24-0.36 wqpo=972) EOSINOPHILS ABSOLUTE COUNT (BEAKER) (test 0.12 K/ L 0.04-0.36 pcxn=987) BASOPHILS ABSOLUTE COUNT (BEAKER) (test 0.05 K/ L 0.01-0.08 enzs=332) IMMATURE GRANULOCYTES-RELATIVE PERCENT (BEAKER) 1 % 0-1 (test ubml=3959) CBC W/PLT COUNT & AUTO [id number] 13:54:00 Test Item Value Reference Range Comments WHITE BLOOD CELL COUNT (BEAKER) (test pgje=227) 24.1 K/ L 3.5-10.5 RED BLOOD CELL COUNT (BEAKER) (test pwbg=547) 2.93 M/ L 3.93-5.22 HEMOGLOBIN (BEAKER) (test nsae=134) 8.1 GM/DL 11.2-15.7 HEMATOCRIT (BEAKER) (test fobq=644) 26.4 % 34.1-44.9 MEAN CORPUSCULAR VOLUME (BEAKER) (test pkaz=054) 90.1 fL 79.4-94.8 MEAN CORPUSCULAR HEMOGLOBIN (BEAKER) (test 27.6 pg 25.6-32.2 utqh=249) MEAN CORPUSCULAR HEMOGLOBIN CONC (BEAKER) (test 30.7 GM/DL 32.2-35.5 vtzu=549) RED CELL DISTRIBUTION WIDTH (BEAKER) (test 14.3 % 11.7-14.4 pgzb=120) PLATELET COUNT (BEAKER) (test flyd=545) 470 K/CU MM 150-450 MEAN PLATELET VOLUME (BEAKER) (test odje=760) 9.6 fL 9.4-12.3 NUCLEATED RED BLOOD CELLS (BEAKER) (test 0 /100 WBC 0-0 hhlk=554) (CELLAVISION MANUAL DIFF)2018-12-09 13:54:00 Test Item Value Reference Range Comments NEUTROPHILS - REL (CELLAVISION)(BEAKER) (test 89 % njkv=7405) LYMPHOCYTES - REL (CELLAVISION)(BEAKER) (test 8 % dqah=5057) MONOCYTES - REL (CELLAVISION)(BEAKER) (test 2 % rpev=3215) EOSINOPHILS - REL (CELLAVISION)(BEAKER) (test 1 % lnsy=6293) NEUTROPHILS - ABS (CELLAVISION)(BEAKER) (test 21.45 K/ul 1.56-6.13 fyfh=2988) LYMPHOCYTES - ABS (CELLAVISION)(BEAKER) (test 1.93 K/ul 1.18-3.74 utkm=2287) MONOCYTES - ABS (CELLAVISION)(BEAKER) (test 0.48 K/uL 0.24-0.36 hace=1753) EOSINOPHILS - ABS (CELLAVISION)(BEAKER) (test 0.24 K/uL 0.04-0.36 sonk=3407) TOTAL COUNTED (BEAKER) (test iytn=7265) 100 WBC MORPHOLOGY (BEAKER) (test pdda=108) Normal PLT MORPHOLOGY (BEAKER) (test suxr=561) Normal POLYCHROMATOPHILLIC RBCS(BEAKER) (test yiya=347) 1+ few ARTIFACT (CELLAVISION)(BEAKER) (test vaso=9275) Present PLATELET CONCENTRATION (CELLAVISION)(BEAKER) Increased (test fqup=0722) Received comment: User comments: Slide comments:POCT-GLUCOSE [id number] 09: 58:00 Test Item Value Reference Range Comments POC-GLUCOSE METER (BEAKER) 272 mg/dL 70-110 TESTED AT [address] (test nmqy=1382) [place] [id number] POCT-GLUCOSE [id number] 09:03:00 Test Item Value Reference Range Comments POC-GLUCOSE METER (BEAKER) 195 mg/dL 70-110 TESTED AT [address] (test gccd=7433) [place] [address] [id number] 06:58:00 Test Item Value Reference Range Comments MAGNESIUM (BEAKER) (test ikto=101) 1.4 mg/dL 1.6-2.6 BASIC METABOLIC [id number] 06:58:00 Test Item Value Reference Range Comments SODIUM (BEAKER) (test 137 meq/L 136-145 ajfp=557) POTASSIUM (BEAKER) (test 3.8 meq/L 3.5-5.1 smmm=760) CHLORIDE (BEAKER) (test 100 meq/L 98-107 szjy=579) CO2 (BEAKER) (test 29 meq/L 22-29 geof=010) BLOOD UREA NITROGEN 7 mg/dL 7-21 (BEAKER) (test ykdr=718) CREATININE (BEAKER) (test 0.79 mg/dL 0.57-1.25 foem=151) GLUCOSE RANDOM (BEAKER) 204 mg/dL 70-105 (test jarp=757) CALCIUM (BEAKER) (test 9.4 mg/dL 8.4-10.2 rhus=008) EGFR (BEAKER) (test 77 mL/min/1.73 sq m ESTIMATED GFR IS NOT ezdl=8715) ACCURATE CREATININE CLEARANCE IN PREDICTING GLOMERULAR FILTRATION RATE. ESTIMATED GFR IS NOT APPLICABLE FOR DIALYSIS PATIENTS. SCREEN, [id number] 20:41:00 Test Item Value Reference Range Comments TEST URINE (BEAKER) (test ctid=349) Negative POCT-GLUCOSE [id number] 20:16:00 Test Item Value Reference Range Comments POC-GLUCOSE METER (BEAKER) 212 mg/dL 70-110 TESTED AT [address] (test azgm=1254) [place] [id number] POCT-GLUCOSE [id number] 17:33:00 Test Item Value Reference Range Comments POC-GLUCOSE METER (BEAKER) 246 mg/dL 70-110 TESTED AT [address] (test uyrw=3599) [place] [id number] POCT-GLUCOSE [id number] 13:01:00 Test Item Value Reference Range Comments POC-GLUCOSE METER (BEAKER) 305 mg/dL 70-110 TESTED AT [address] (test kwxb=2757) [place] [id number] U/S, RENAL, [id number] 09:54:00Reason for exam:->eval right peritoneal fluid collection and possible R PCN placementFINAL REPORT Renal ultrasound dated 12/08/2018 Comment: Real-time transabdominal renal ultrasound was performed.Right kidney measures 13.8 x 6 x 5.1 [...] bilaterally. Impression: Unremarkable renal ultrasound. Signed: Mónica Moyaeport Verified Date/Time: 12/08/2018 09:54:36 Reading Location: [address] Radiology Reading Room [id number] 06:37:00 Test Item Value Reference Range Comments MAGNESIUM (BEAKER) (test 1.7 mg/dL 1.6-2.6 Specimen slightly hemolyzed pdwl=288) BASIC METABOLIC [id number] 06:37:00 Test Item Value Reference Range Comments SODIUM (BEAKER) (test 134 meq/L 136-145 pooz=750) POTASSIUM (BEAKER) (test 4.0 meq/L 3.5-5.1 Specimen slightly kdsg=654) hemolyzed CHLORIDE (BEAKER) (test 103 meq/L 98-107 vowg=666) CO2 (BEAKER) (test 26 meq/L 22-29 qbac=833) BLOOD UREA NITROGEN 7 mg/dL 7-21 (BEAKER) (test fzrb=591) CREATININE (BEAKER) (test 0.68 mg/dL 0.57-1.25 Specimen slightly ospa=939) hemolyzed GLUCOSE RANDOM (BEAKER) 194 mg/dL 70-105 (test nmkz=145) CALCIUM (BEAKER) (test 9.0 mg/dL 8.4-10.2 iwda=371) EGFR (BEAKER) (test 92 mL/min/1.73 sq m ESTIMATED GFR IS NOT xctp=2078) ACCURATE CREATININE CLEARANCE IN PREDICTING GLOMERULAR FILTRATION RATE. ESTIMATED GFR IS NOT APPLICABLE FOR DIALYSIS PATIENTS. CBC W/PLT COUNT & AUTO [id number] 06:27:00 Test Item Value Reference Range Comments WHITE BLOOD CELL COUNT (BEAKER) (test agfh=281) 14.0 K/ L 3.5-10.5 RED BLOOD CELL COUNT (BEAKER) (test rkvp=784) 4.29 M/ L 3.93-5.22 HEMOGLOBIN (BEAKER) (test gtoe=329) 12.0 GM/DL 11.2-15.7 HEMATOCRIT (BEAKER) (test wvbd=717) 38.4 % 34.1-44.9 MEAN CORPUSCULAR VOLUME (BEAKER) (test extt=917) 89.5 fL 79.4-94.8 MEAN CORPUSCULAR HEMOGLOBIN (BEAKER) (test 28.0 pg 25.6-32.2 kjpo=868) MEAN CORPUSCULAR HEMOGLOBIN CONC (BEAKER) (test 31.3 GM/DL 32.2-35.5 bpmw=348) RED CELL DISTRIBUTION WIDTH (BEAKER) (test 14.3 % 11.7-14.4 fmbg=361) PLATELET COUNT (BEAKER) (test xkun=160) 355 K/CU MM 150-450 MEAN PLATELET VOLUME (BEAKER) (test nlgh=179) 9.0 fL 9.4-12.3 NUCLEATED RED BLOOD CELLS (BEAKER) (test 0 /100 WBC 0-0 puav=356) NEUTROPHILS RELATIVE PERCENT (BEAKER) (test 77 % tyiu=751) LYMPHOCYTES RELATIVE PERCENT (BEAKER) (test 13 % zqze=066) MONOCYTES RELATIVE PERCENT (BEAKER) (test 8 % mdhn=389) EOSINOPHILS RELATIVE PERCENT (BEAKER) (test 1 % ebmm=416) BASOPHILS RELATIVE PERCENT (BEAKER) (test 0 % pjog=054) NEUTROPHILS ABSOLUTE COUNT (BEAKER) (test 10.86 K/ L 1.56-6.13 gafp=435) LYMPHOCYTES ABSOLUTE COUNT (BEAKER) (test 1.85 K/ L 1.18-3.74 xxdz=161) MONOCYTES ABSOLUTE COUNT (BEAKER) (test 1.06 K/ L 0.24-0.36 yihx=110) EOSINOPHILS ABSOLUTE COUNT (BEAKER) (test 0.11 K/ L 0.04-0.36 srgu=742) BASOPHILS ABSOLUTE COUNT (BEAKER) (test 0.05 K/ L 0.01-0.08 gdqq=545) IMMATURE GRANULOCYTES-RELATIVE PERCENT (BEAKER) 1 % 0-1 (test tcvj=6682) POCT-GLUCOSE [id number] 21:35:00 Test Item Value Reference Range Comments POC-GLUCOSE METER (BEAKER) 251 mg/dL 70-[address] [facility] [address] [facility] (test yqdf=1699) [facility] [address] POCT-GLUCOSE [id number] 17:29:00 Test Item Value Reference Range Comments POC-GLUCOSE METER (BEAKER) 171 mg/dL 70-[address] [facility] [address] [facility] (test cdlh=4423) [facility] [address] POCT-GLUCOSE [id number] 12:03:00 Test Item Value Reference Range Comments POC-GLUCOSE METER (BEAKER) 163 mg/dL 70-110 TESTED AT [place] [id number] [facility] (test czpf=7986) [facility] [address] POCT-GLUCOSE [id number] 11:35:00 Test Item Value Reference Range Comments POC-GLUCOSE METER (BEAKER) 167 mg/dL 70-110 TESTED AT [address] (test cgmp=4746) [facility] [address] [id number] 07:52:00 Test Item Value Reference Range Comments MAGNESIUM (BEAKER) (test ziqf=659) 1.5 mg/dL 1.6-2.6 BASIC METABOLIC [id number] 07:52:00 Test Item Value Reference Range Comments SODIUM (BEAKER) (test 135 meq/L 136-145 mcfl=236) POTASSIUM (BEAKER) (test 4.2 meq/L 3.5-5.1 vonx=642) CHLORIDE (BEAKER) (test 103 meq/L 98-107 hagn=010) CO2 (BEAKER) (test 25 meq/L 22-29 pzkf=963) BLOOD UREA NITROGEN 9 mg/dL 7-21 (BEAKER) (test ncfn=775) CREATININE (BEAKER) (test 0.67 mg/dL 0.57-1.25 jbdn=018) GLUCOSE RANDOM (BEAKER) 179 mg/dL 70-105 (test pbgc=896) CALCIUM (BEAKER) (test 8.6 mg/dL 8.4-10.2 sowk=117) EGFR (BEAKER) (test 94 mL/min/1.73 sq m ESTIMATED GFR IS NOT qsss=4203) ACCURATE CREATININE CLEARANCE IN PREDICTING GLOMERULAR FILTRATION RATE. ESTIMATED GFR IS NOT APPLICABLE FOR DIALYSIS PATIENTS. CBC W/PLT COUNT & AUTO [id number] 06:46:00 Test Item Value Reference Range Comments WHITE BLOOD CELL COUNT (BEAKER) (test qxzt=944) 13.8 K/ L 3.5-10.5 RED BLOOD CELL COUNT (BEAKER) (test lpkx=072) 4.19 M/ L 3.93-5.22 HEMOGLOBIN (BEAKER) (test dycc=708) 11.9 GM/DL 11.2-15.7 HEMATOCRIT (BEAKER) (test yrwm=187) 38.1 % 34.1-44.9 MEAN CORPUSCULAR VOLUME (BEAKER) (test ifyx=891) 90.9 fL 79.4-94.8 MEAN CORPUSCULAR HEMOGLOBIN (BEAKER) (test 28.4 pg 25.6-32.2 roqk=913) MEAN CORPUSCULAR HEMOGLOBIN CONC (BEAKER) (test 31.2 GM/DL 32.2-35.5 gxbp=955) RED CELL DISTRIBUTION WIDTH (BEAKER) (test 14.5 % 11.7-14.4 uhxl=586) PLATELET COUNT (BEAKER) (test vgbu=963) 336 K/CU MM 150-450 MEAN PLATELET VOLUME (BEAKER) (test bzyp=790) 9.2 fL 9.4-12.3 NUCLEATED RED BLOOD CELLS (BEAKER) (test 0 /100 WBC 0-0 retx=831) NEUTROPHILS RELATIVE PERCENT (BEAKER) (test 76 % ufiw=701) LYMPHOCYTES RELATIVE PERCENT (BEAKER) (test 13 % uwvr=893) MONOCYTES RELATIVE PERCENT (BEAKER) (test 8 % syyp=078) EOSINOPHILS RELATIVE PERCENT (BEAKER) (test 1 % uaks=034) BASOPHILS RELATIVE PERCENT (BEAKER) (test 0 % kzqa=810) NEUTROPHILS ABSOLUTE COUNT (BEAKER) (test 10.51 K/ L 1.56-6.13 tqoy=831) LYMPHOCYTES ABSOLUTE COUNT (BEAKER) (test 1.85 K/ L 1.18-3.74 qkqz=384) MONOCYTES ABSOLUTE COUNT (BEAKER) (test 1.10 K/ L 0.24-0.36 odbs=469) EOSINOPHILS ABSOLUTE COUNT (BEAKER) (test 0.15 K/ L 0.04-0.36 xrhw=364) BASOPHILS ABSOLUTE COUNT (BEAKER) (test 0.06 K/ L 0.01-0.08 tgod=998) IMMATURE GRANULOCYTES-RELATIVE PERCENT (BEAKER) 1 % 0-1 (test hmcj=0199) POCT-GLUCOSE [id number] 21:46:00 Test Item Value Reference Range Comments POC-GLUCOSE METER (BEAKER) 155 mg/dL 70-110 TESTED AT [address] (test meiz=0708) [place] [id number] POCT-GLUCOSE [id number] 17:10:00 Test Item Value Reference Range Comments POC-GLUCOSE METER (BEAKER) 160 mg/dL 70-110 TESTED AT [address] (test nqfh=0216) [place] [address] CREATININE, BODY [id number] 12:23:00 Test Item Value Reference Range Comments CREATININE FLUID (BEAKER) (test zlom=630) 26.08 mg/dL Reference Range: No Normals Assay performance has not been validated for this type of specimen.POCT-GLUCOSE [id number] 11:36:00 Test Item Value Reference Range Comments POC-GLUCOSE METER (BEAKER) 166 mg/dL 70-110 TESTED AT [address] (test rpcy=2893) [place] [id number] POCT-GLUCOSE [id number] 08:25:00 Test Item Value Reference Range Comments POC-GLUCOSE METER (BEAKER) 149 mg/dL 70-110 TESTED AT [address] (test cwgd=0639) [place] [address] [id number] 07:40:00 Test Item Value Reference Range Comments MAGNESIUM (BEAKER) (test kzda=123) 1.6 mg/dL 1.6-2.6 BASIC METABOLIC [id number] 07:40:00 Test Item Value Reference Range Comments SODIUM (BEAKER) (test 135 meq/L 136-145 pyln=174) POTASSIUM (BEAKER) (test 3.9 meq/L 3.5-5.1 mmth=815) CHLORIDE (BEAKER) (test 104 meq/L 98-107 elsd=138) CO2 (BEAKER) (test 27 meq/L 22-29 iddv=162) BLOOD UREA NITROGEN 6 mg/dL 7-21 (BEAKER) (test tufv=955) CREATININE (BEAKER) (test 0.62 mg/dL 0.57-1.25 osxw=905) GLUCOSE RANDOM (BEAKER) 142 mg/dL 70-105 (test wdnd=570) CALCIUM (BEAKER) (test 8.6 mg/dL 8.4-10.2 htty=464) EGFR (BEAKER) (test 102 mL/min/1.73 sq m ESTIMATED GFR IS NOT hoan=7672) ACCURATE CREATININE CLEARANCE IN PREDICTING GLOMERULAR FILTRATION RATE. ESTIMATED GFR IS NOT APPLICABLE FOR DIALYSIS PATIENTS. CBC W/PLT COUNT & AUTO [id number] 06:34:00 Test Item Value Reference Range Comments WHITE BLOOD CELL COUNT (BEAKER) (test ydfv=548) 13.8 K/ L 3.5-10.5 RED BLOOD CELL COUNT (BEAKER) (test vgwl=539) 4.28 M/ L 3.93-5.22 HEMOGLOBIN (BEAKER) (test zjms=211) 12.0 GM/DL 11.2-15.7 HEMATOCRIT (BEAKER) (test ccek=730) 37.8 % 34.1-44.9 MEAN CORPUSCULAR VOLUME (BEAKER) (test wglb=785) 88.3 fL 79.4-94.8 MEAN CORPUSCULAR HEMOGLOBIN (BEAKER) (test 28.0 pg 25.6-32.2 vvgd=703) MEAN CORPUSCULAR HEMOGLOBIN CONC (BEAKER) (test 31.7 GM/DL 32.2-35.5 zxqw=644) RED CELL DISTRIBUTION WIDTH (BEAKER) (test 14.5 % 11.7-14.4 fvua=172) PLATELET COUNT (BEAKER) (test bgop=909) 337 K/CU MM 150-450 MEAN PLATELET VOLUME (BEAKER) (test vgbh=908) 8.9 fL 9.4-12.3 NUCLEATED RED BLOOD CELLS (BEAKER) (test 0 /100 WBC 0-0 ryes=569) NEUTROPHILS RELATIVE PERCENT (BEAKER) (test 76 % kner=048) LYMPHOCYTES RELATIVE PERCENT (BEAKER) (test 14 % ybyi=714) MONOCYTES RELATIVE PERCENT (BEAKER) (test 7 % pxej=762) EOSINOPHILS RELATIVE PERCENT (BEAKER) (test 1 % qnsl=372) BASOPHILS RELATIVE PERCENT (BEAKER) (test 0 % nmom=120) NEUTROPHILS ABSOLUTE COUNT (BEAKER) (test 10.47 K/ L 1.56-6.13 xukr=340) LYMPHOCYTES ABSOLUTE COUNT (BEAKER) (test 1.98 K/ L 1.18-3.74 gxno=757) MONOCYTES ABSOLUTE COUNT (BEAKER) (test 0.96 K/ L 0.24-0.36 zioh=385) EOSINOPHILS ABSOLUTE COUNT (BEAKER) (test 0.16 K/ L 0.04-0.36 ygth=253) BASOPHILS ABSOLUTE COUNT (BEAKER) (test 0.05 K/ L 0.01-0.08 ngne=235) IMMATURE GRANULOCYTES-RELATIVE PERCENT (BEAKER) 1 % 0-1 (test gmxt=6414) POCT-GLUCOSE [id number] 21:17:00 Test Item Value Reference Range Comments POC-GLUCOSE METER (BEAKER) 175 mg/dL 70-110 TESTED AT [address] (test vigj=1596) [facility] [id number] POCT-GLUCOSE [id number] 16:47:00 Test Item Value Reference Range Comments POC-GLUCOSE METER (BEAKER) 184 mg/dL 70-110 TESTED AT [address] (test dswu=1996) [facility] [address] POCT-GLUCOSE [id number] 12:48:00 Test Item Value Reference Range Comments POC-GLUCOSE METER (BEAKER) 196 mg/dL 70-110 TESTED AT [address] (test awwn=4045) [facility] [address] POCT-GLUCOSE [id number] 08:16:00 Test Item Value Reference Range Comments POC-GLUCOSE METER (BEAKER) 195 mg/dL 70-110 TESTED AT [address] (test bbxs=6850) [facility] [address] [id number] 07:40:00 Test Item Value Reference Range Comments MAGNESIUM (BEAKER) (test cadf=588) 1.4 mg/dL 1.6-2.6 BASIC METABOLIC [id number] 07:40:00 Test Item Value Reference Range Comments SODIUM (BEAKER) (test 136 meq/L 136-145 kzix=517) POTASSIUM (BEAKER) (test 4.1 meq/L 3.5-5.1 fsma=423) CHLORIDE (BEAKER) (test 104 meq/L 98-107 wwyn=041) CO2 (BEAKER) (test 25 meq/L 22-29 wlob=753) BLOOD UREA NITROGEN 8 mg/dL 7-21 (BEAKER) (test iazt=453) CREATININE (BEAKER) (test 0.60 mg/dL 0.57-1.25 wfrj=445) GLUCOSE RANDOM (BEAKER) 166 mg/dL 70-105 (test gdca=777) CALCIUM (BEAKER) (test 8.7 mg/dL 8.4-10.2 wydb=773) EGFR (BEAKER) (test 106 mL/min/1.73 sq m ESTIMATED GFR IS NOT gnpo=2493) ACCURATE CREATININE CLEARANCE IN PREDICTING GLOMERULAR FILTRATION RATE. ESTIMATED GFR IS NOT APPLICABLE FOR DIALYSIS PATIENTS. CBC W/PLT COUNT & AUTO [id number] 07:11:00 Test Item Value Reference Range Comments WHITE BLOOD CELL COUNT (BEAKER) (test fdyg=610) 16.2 K/ L 3.5-10.5 RED BLOOD CELL COUNT (BEAKER) (test vdah=168) 4.21 M/ L 3.93-5.22 HEMOGLOBIN (BEAKER) (test pwry=271) 11.9 GM/DL 11.2-15.7 HEMATOCRIT (BEAKER) (test pfku=866) 37.2 % 34.1-44.9 MEAN CORPUSCULAR VOLUME (BEAKER) (test ppxa=590) 88.4 fL 79.4-94.8 MEAN CORPUSCULAR HEMOGLOBIN (BEAKER) (test 28.3 pg 25.6-32.2 cpro=341) MEAN CORPUSCULAR HEMOGLOBIN CONC (BEAKER) (test 32.0 GM/DL 32.2-35.5 xisw=633) RED CELL DISTRIBUTION WIDTH (BEAKER) (test 14.4 % 11.7-14.4 tuzm=602) PLATELET COUNT (BEAKER) (test ltuf=103) 328 K/CU MM 150-450 MEAN PLATELET VOLUME (BEAKER) (test kucz=317) 9.0 fL 9.4-12.3 NUCLEATED RED BLOOD CELLS (BEAKER) (test 0 /100 WBC 0-0 gkdr=358) NEUTROPHILS RELATIVE PERCENT (BEAKER) (test 77 % ygzy=116) LYMPHOCYTES RELATIVE PERCENT (BEAKER) (test 12 % mlqb=527) MONOCYTES RELATIVE PERCENT (BEAKER) (test 7 % nsez=661) EOSINOPHILS RELATIVE PERCENT (BEAKER) (test 1 % qcde=520) BASOPHILS RELATIVE PERCENT (BEAKER) (test 0 % rgzw=619) NEUTROPHILS ABSOLUTE COUNT (BEAKER) (test 12.48 K/ L 1.56-6.13 rufj=736) LYMPHOCYTES ABSOLUTE COUNT (BEAKER) (test 1.99 K/ L 1.18-3.74 jaiv=873) MONOCYTES ABSOLUTE COUNT (BEAKER) (test 1.19 K/ L 0.24-0.36 unsb=804) EOSINOPHILS ABSOLUTE COUNT (BEAKER) (test 0.16 K/ L 0.04-0.36 kioi=730) BASOPHILS ABSOLUTE COUNT (BEAKER) (test 0.06 K/ L 0.01-0.08 xtds=483) IMMATURE GRANULOCYTES-RELATIVE PERCENT (BEAKER) 2 % 0-1 (test ovgt=2513) BLOOD [id number] 02:01:00 Test Item Value Reference Range Comments CULTURE (BEAKER) (test effm=7995) No growth in 5 days BLOOD [id number] 02:01:00 Test Item Value Reference Range Comments CULTURE (BEAKER) (test sjuy=7159) No growth in 5 days POCT-GLUCOSE [id number] 21:35:00 Test Item Value Reference Range Comments POC-GLUCOSE METER (BEAKER) 178 mg/dL 70-110 TESTED AT [address] (test rxiv=3443) [facility] [address] POCT-GLUCOSE [id number] 17:28:00 Test Item Value Reference Range Comments POC-GLUCOSE METER (BEAKER) 297 mg/dL 70-110 TESTED AT [address] (test aiiv=6531) [place] [id number] POCT-GLUCOSE [id number] 16:19:00 Test Item Value Reference Range Comments POC-GLUCOSE METER (BEAKER) 184 mg/dL 70-110 TESTED AT [address] (test kwey=8164) [place] [id number] ANG, DRAINAGE TUBE CHANGE (GASTRO, NEPHRO OR BILIARY)2018-12-04 15:35:00FINAL REPORT Right perirenal drain examination Pertinent clinical information: Upsized drainage catheterComparison : November 29, 2018Modality: Fluoroscopy, seven image(s) submittedfor interpretation. Conscious Sedation: No sedation Anesthesia: Two percent Lidocaine injected subcutaneously at the insertion site.Approach: Right flank Labs sent: Negative Antibiotics: The patient is currently on antibioticsFluoro time (in minutes): 0.6 minutes Number of images: Seven images Technique: After informed written consent was obtained, the patient was prepped and draped in the usual sterile manner. Access was obtained through the existing catheter. Contrast was injected through the catheter access site. An amorphous collection was visualized through the 8 Uruguayan drain. The catheter was exchanged over a guidewire. A 10 Uruguayan catheter was placed.. The catheter was manipulated with contrast monitoring. The patient tolerated the procedure well. The patient left the department in the same condition. Impression:Successful, uncomplicated upsizing of a right perinephric drain. Signed: Gustavo Vo MDReport Verified Date/Time: 12/04/2018 15:35:20 Reading Location: [place] [address] Angio Body Reading Room Electronically signed by: GUSTAVO VO M.D. on 03:35 PMPOCT-GLUCOSE [id number] 08:22:00 Test Item Value Reference Range Comments POC-GLUCOSE METER (BEAKER) 223 mg/dL 70-[address] [facility] [address] [facility] (test ukhz=3769) [facility] [address] [id number] 07:42:00 Test Item Value Reference Range Comments MAGNESIUM (BEAKER) (test qand=728) 1.8 mg/dL 1.6-2.6 BASIC METABOLIC [id number] 07:42:00 Test Item Value Reference Range Comments SODIUM (BEAKER) (test 133 meq/L 136-145 rrqz=472) POTASSIUM (BEAKER) (test 4.2 meq/L 3.5-5.1 vjis=311) CHLORIDE (BEAKER) (test 99 meq/L 98-107 mogx=505) CO2 (BEAKER) (test 30 meq/L 22-29 fdcm=306) BLOOD UREA NITROGEN 11 mg/dL 7-21 (BEAKER) (test vuhu=622) CREATININE (BEAKER) (test 0.68 mg/dL 0.57-1.25 pbkq=736) GLUCOSE RANDOM (BEAKER) 213 mg/dL 70-105 (test tyud=741) CALCIUM (BEAKER) (test 8.8 mg/dL 8.4-10.2 dnci=092) EGFR (BEAKER) (test 92 mL/min/1.73 sq m ESTIMATED GFR IS NOT cvac=2156) ACCURATE CREATININE CLEARANCE IN PREDICTING GLOMERULAR FILTRATION RATE. ESTIMATED GFR IS NOT APPLICABLE FOR DIALYSIS PATIENTS. CBC W/PLT COUNT & AUTO [id number] 07:13:00 Test Item Value Reference Range Comments WHITE BLOOD CELL COUNT (BEAKER) (test sakb=816) 16.6 K/ L 3.5-10.5 RED BLOOD CELL COUNT (BEAKER) (test ybfp=858) 4.40 M/ L 3.93-5.22 HEMOGLOBIN (BEAKER) (test xeid=516) 12.5 GM/DL 11.2-15.7 HEMATOCRIT (BEAKER) (test oxsu=525) 38.9 % 34.1-44.9 MEAN CORPUSCULAR VOLUME (BEAKER) (test ruti=688) 88.4 fL 79.4-94.8 MEAN CORPUSCULAR HEMOGLOBIN (BEAKER) (test 28.4 pg 25.6-32.2 kwbc=933) MEAN CORPUSCULAR HEMOGLOBIN CONC (BEAKER) (test 32.1 GM/DL 32.2-35.5 ojty=231) RED CELL DISTRIBUTION WIDTH (BEAKER) (test 14.4 % 11.7-14.4 ikjn=407) PLATELET COUNT (BEAKER) (test zvzd=524) 333 K/CU MM 150-450 MEAN PLATELET VOLUME (BEAKER) (test uhds=655) 9.6 fL 9.4-12.3 NUCLEATED RED BLOOD CELLS (BEAKER) (test 0 /100 WBC 0-0 rozu=750) NEUTROPHILS RELATIVE PERCENT (BEAKER) (test 76 % puvj=330) LYMPHOCYTES RELATIVE PERCENT (BEAKER) (test 13 % wmau=637) MONOCYTES RELATIVE PERCENT (BEAKER) (test 8 % uube=855) EOSINOPHILS RELATIVE PERCENT (BEAKER) (test 1 % tmir=791) BASOPHILS RELATIVE PERCENT (BEAKER) (test 0 % mmuh=862) NEUTROPHILS ABSOLUTE COUNT (BEAKER) (test 12.52 K/ L 1.56-6.13 mghu=416) LYMPHOCYTES ABSOLUTE COUNT (BEAKER) (test 2.12 K/ L 1.18-3.74 jkhc=394) MONOCYTES ABSOLUTE COUNT (BEAKER) (test 1.27 K/ L 0.24-0.36 twww=723) EOSINOPHILS ABSOLUTE COUNT (BEAKER) (test 0.17 K/ L 0.04-0.36 fnum=822) BASOPHILS ABSOLUTE COUNT (BEAKER) (test 0.06 K/ L 0.01-0.08 mecn=557) IMMATURE GRANULOCYTES-RELATIVE PERCENT (BEAKER) 3 % 0-1 (test adzz=0143) POCT-GLUCOSE [id number] 22:10:00 Test Item Value Reference Range Comments POC-GLUCOSE METER (BEAKER) 206 mg/dL 70-110 TESTED AT [address] (test gesj=1940) [place] [address] POCT-GLUCOSE [id number] 17:08:00 Test Item Value Reference Range Comments POC-GLUCOSE METER (BEAKER) 216 mg/dL 70-110 TESTED AT [address] (test hjub=2922) [place] [address] POCT-GLUCOSE [id number] 12:43:00 Test Item Value Reference Range Comments POC-GLUCOSE METER (BEAKER) 239 mg/dL 70-110 TESTED AT [address] (test bzte=7043) [place] [address] POCT-GLUCOSE [id number] 11:44:00 Test Item Value Reference Range Comments POC-GLUCOSE METER (BEAKER) 249 mg/dL 70-110 TESTED AT [address] (test abie=4462) [place] [address] BODY FLUID CULTURE + GRAM [id number] 09:14:00 Test Item Value Reference Range Comments CULTURE (BEAKER) (test ESCHERICHIA COLI 1+ Escherichia coli uxnk=3362) Amikacin (test code=1) Ampicillin + Sulbactam (test code=6) Aztreonam (test code=32) Cefepime (test code=51) Cefoxitin (test code=68) Ceftazidime (test code=27) Ceftriaxone (test code=52) Ertapenem (test code=38) Gentamicin (test code=18) Levofloxacin (test code=22) Meropenem (test code=34) Nitrofurantoin (test code=23) Piperacillin + Tazobactam (test code=29) Tetracycline (test code=2) Tobramycin (test code=25) Trimethoprim + Sulfamethoxazole (test code=47) GRAM STAIN RESULT (BEAKER) 2+ White blood cells (test bcla=9304) seen GRAM STAIN RESULT (BEAKER) No organisms seen (test dwyi=542485) POCT-GLUCOSE [id number] 07:44:00 Test Item Value Reference Range Comments POC-GLUCOSE METER (BEAKER) 186 mg/dL 70-110 TESTED AT [address] (test cdlq=0952) [place] [address] [id number] 04:06:00 Test Item Value Reference Range Comments MAGNESIUM (BEAKER) (test 1.4 mg/dL 1.6-2.6 Specimen slightly hemolyzed jinr=197) BASIC METABOLIC [id number] 04:06:00 Test Item Value Reference Range Comments SODIUM (BEAKER) (test 134 meq/L 136-145 vywz=891) POTASSIUM (BEAKER) (test 4.2 meq/L 3.5-5.1 Specimen slightly vymx=494) hemolyzed CHLORIDE (BEAKER) (test 97 meq/L 98-107 ovft=270) CO2 (BEAKER) (test 29 meq/L 22-29 ldik=728) BLOOD UREA NITROGEN 8 mg/dL 7-21 (BEAKER) (test fkdo=273) CREATININE (BEAKER) (test 0.64 mg/dL 0.57-1.25 Specimen slightly aejf=601) hemolyzed GLUCOSE RANDOM (BEAKER) 220 mg/dL 70-105 (test qksa=015) CALCIUM (BEAKER) (test 8.8 mg/dL 8.4-10.2 sezp=480) EGFR (BEAKER) (test 99 mL/min/1.73 sq m ESTIMATED GFR IS NOT wxsx=4044) ACCURATE CREATININE CLEARANCE IN PREDICTING GLOMERULAR FILTRATION RATE. ESTIMATED GFR IS NOT APPLICABLE FOR DIALYSIS PATIENTS. CBC W/PLT COUNT & AUTO [id number] 03:48:00 Test Item Value Reference Range Comments WHITE BLOOD CELL COUNT (BEAKER) (test qnzl=896) 16.5 K/ L 3.5-10.5 RED BLOOD CELL COUNT (BEAKER) (test wksw=210) 4.29 M/ L 3.93-5.22 HEMOGLOBIN (BEAKER) (test pdje=719) 12.1 GM/DL 11.2-15.7 HEMATOCRIT (BEAKER) (test tlhx=371) 37.9 % 34.1-44.9 MEAN CORPUSCULAR VOLUME (BEAKER) (test fjmf=191) 88.3 fL 79.4-94.8 MEAN CORPUSCULAR HEMOGLOBIN (BEAKER) (test 28.2 pg 25.6-32.2 fatp=091) MEAN CORPUSCULAR HEMOGLOBIN CONC (BEAKER) (test 31.9 GM/DL 32.2-35.5 qeil=929) RED CELL DISTRIBUTION WIDTH (BEAKER) (test 14.5 % 11.7-14.4 gnat=738) PLATELET COUNT (BEAKER) (test iril=249) 305 K/CU MM 150-450 MEAN PLATELET VOLUME (BEAKER) (test wgow=716) 9.6 fL 9.4-12.3 NUCLEATED RED BLOOD CELLS (BEAKER) (test 0 /100 WBC 0-0 ifuw=412) NEUTROPHILS RELATIVE PERCENT (BEAKER) (test 76 % kxky=350) LYMPHOCYTES RELATIVE PERCENT (BEAKER) (test 12 % wgir=296) MONOCYTES RELATIVE PERCENT (BEAKER) (test 8 % djfr=519) EOSINOPHILS RELATIVE PERCENT (BEAKER) (test 1 % hbft=909) BASOPHILS RELATIVE PERCENT (BEAKER) (test 1 % ucmu=997) NEUTROPHILS ABSOLUTE COUNT (BEAKER) (test 12.50 K/ L 1.56-6.13 gpra=493) LYMPHOCYTES ABSOLUTE COUNT (BEAKER) (test 1.95 K/ L 1.18-3.74 srix=637) MONOCYTES ABSOLUTE COUNT (BEAKER) (test 1.33 K/ L 0.24-0.36 rylh=526) EOSINOPHILS ABSOLUTE COUNT (BEAKER) (test 0.17 K/ L 0.04-0.36 zvkv=428) BASOPHILS ABSOLUTE COUNT (BEAKER) (test 0.09 K/ L 0.01-0.08 oatu=912) IMMATURE GRANULOCYTES-RELATIVE PERCENT (BEAKER) 3 % 0-1 (test iryo=3281) POCT-GLUCOSE [id number] 22:35:00 Test Item Value Reference Range Comments POC-GLUCOSE METER (BEAKER) 240 mg/dL 70-110 TESTED AT [address] (test xiai=3318) [place] [id number] POCT-GLUCOSE [id number] 17:37:00 Test Item Value Reference Range Comments POC-GLUCOSE METER (BEAKER) 249 mg/dL 70-110 TESTED AT [address] (test muzm=9475) [place] [id number] POCT-GLUCOSE [id number] 16:49:00 Test Item Value Reference Range Comments POC-GLUCOSE METER (BEAKER) 203 mg/dL 70-110 TESTED AT [address] (test wyaf=5399) [place] [id number] CT, [id number] 16:07:00FINAL REPORT ABDOMINAL AND PELVIS CT DATED 12/02/2018 [...] Gerota's fascia measuring approximately 3.8 x 9.2 x11.8 cm, previously 6.7 x 9.5 x 2.5 cm. The small and large bowel are suboptimally evaluated secondary to lack of GI and intravenous contrast. Diverticular disease is seen in the large bowel without diverticulitis. No small or large bowel dilatation is seen. Appendix is not visualized. Uterus and ovaries are unremarkable. IMPRESSION: 1. Trace right pleural effusion with right lower lobe subsegmentalatelectasis.2. Cystic lesion in the mid upper pole right kidney suggestive of renal cyst or calycealdiverticulum.3. Interval decrease in size of complex collection within the right Gerota's fascia following drainage catheter placement. Signed: Mónica Moyaeport Verified Date/Time: 12/02/2018 16:07:37 Reading Location: [facility] C013Y CT Body Reading Room POCT -GLUCOSE [id number] 12:43:00 Test Item Value Reference Range Comments POC-GLUCOSE METER (BEAKER) 344 mg/dL 70-110 Notified SANA MIRELES/TESTED AT [facility] (test soca=9795) [address] [facility] [address] POCT-GLUCOSE [id number] 09:16:00 Test Item Value Reference Range Comments POC-GLUCOSE METER (BEAKER) 239 mg/dL 70-[address] [facility] [address] (test aaip=3724) [facility] [address] VITAMIN [id number] 05:38:00 Test Item Value Reference Range Comments VITAMIN B12 (BEAKER) (test nhsz=038) 1104 pg/mL 213-816 IRON, TIBC, % SAT. (WITHOUT FERRITIN)2018-12-02 05:10:00 Test Item Value Reference Range Comments IRON (BEAKER) (test mian=802) 23.0 ug/dL 40.0-160.0 TOTAL IRON BINDING CAPACITY (BEAKER) (test 189 ug/dL 250-450 nqup=104) IRON % SATURATION (2) (BEAKER) (test whpz=8822) 12 % 20-55 [id number] 05:10:00 Test Item Value Reference Range Comments MAGNESIUM (BEAKER) (test xxog=646) 1.6 mg/dL 1.6-2.6 BASIC METABOLIC [id number] 05:10:00 Test Item Value Reference Range Comments SODIUM (BEAKER) (test 134 meq/L 136-145 zcrr=716) POTASSIUM (BEAKER) (test 3.4 meq/L 3.5-5.1 knnw=120) CHLORIDE (BEAKER) (test 95 meq/L 98-107 emmt=882) CO2 (BEAKER) (test 34 meq/L 22-29 iljt=837) BLOOD UREA NITROGEN 6 mg/dL 7-21 (BEAKER) (test bvkz=718) CREATININE (BEAKER) (test 0.68 mg/dL 0.57-1.25 lwuz=835) GLUCOSE RANDOM (BEAKER) 253 mg/dL 70-105 (test bnnr=998) CALCIUM (BEAKER) (test 8.2 mg/dL 8.4-10.2 clvv=590) EGFR (BEAKER) (test 92 mL/min/1.73 sq m ESTIMATED GFR IS NOT kijs=3400) ACCURATE CREATININE CLEARANCE IN PREDICTING GLOMERULAR FILTRATION RATE. ESTIMATED GFR IS NOT APPLICABLE FOR DIALYSIS PATIENTS. CBC W/PLT COUNT & AUTO [id number] 04:54:00 Test Item Value Reference Range Comments WHITE BLOOD CELL COUNT (BEAKER) (test oojx=803) 17.3 K/ L 3.5-10.5 RED BLOOD CELL COUNT (BEAKER) (test gqsm=038) 4.39 M/ L 3.93-5.22 HEMOGLOBIN (BEAKER) (test jawo=297) 12.2 GM/DL 11.2-15.7 HEMATOCRIT (BEAKER) (test henp=433) 38.5 % 34.1-44.9 MEAN CORPUSCULAR VOLUME (BEAKER) (test ounq=201) 87.7 fL 79.4-94.8 MEAN CORPUSCULAR HEMOGLOBIN (BEAKER) (test 27.8 pg 25.6-32.2 alar=263) MEAN CORPUSCULAR HEMOGLOBIN CONC (BEAKER) (test 31.7 GM/DL 32.2-35.5 nutv=527) RED CELL DISTRIBUTION WIDTH (BEAKER) (test 14.6 % 11.7-14.4 qdys=558) PLATELET COUNT (BEAKER) (test udda=945) 320 K/CU MM 150-450 MEAN PLATELET VOLUME (BEAKER) (test gwsc=563) 9.0 fL 9.4-12.3 NUCLEATED RED BLOOD CELLS (BEAKER) (test 0 /100 WBC 0-0 spru=609) NEUTROPHILS RELATIVE PERCENT (BEAKER) (test 80 % wxsh=358) LYMPHOCYTES RELATIVE PERCENT (BEAKER) (test 10 % sbrx=619) MONOCYTES RELATIVE PERCENT (BEAKER) (test 7 % yupa=044) EOSINOPHILS RELATIVE PERCENT (BEAKER) (test 1 % mtpb=979) BASOPHILS RELATIVE PERCENT (BEAKER) (test 0 % wvoq=762) NEUTROPHILS ABSOLUTE COUNT (BEAKER) (test 13.81 K/ L 1.56-6.13 rbbo=777) LYMPHOCYTES ABSOLUTE COUNT (BEAKER) (test 1.64 K/ L 1.18-3.74 ikhd=227) MONOCYTES ABSOLUTE COUNT (BEAKER) (test 1.19 K/ L 0.24-0.36 tnzj=201) EOSINOPHILS ABSOLUTE COUNT (BEAKER) (test 0.15 K/ L 0.04-0.36 jtvj=702) BASOPHILS ABSOLUTE COUNT (BEAKER) (test 0.05 K/ L 0.01-0.08 fhoz=574) IMMATURE GRANULOCYTES-RELATIVE PERCENT (BEAKER) 3 % 0-1 (test hrun=5052) POCT-GLUCOSE [id number] 23:16:00 Test Item Value Reference Range Comments POC-GLUCOSE METER (BEAKER) 223 mg/dL 70-[address] [facility] [address] (test qkjz=8415) [facility] [address] CT, DRAINAGE, [id number] 17:21:00Reason for exam:->emphysematous pyelonephritisFINAL REPORT CT guided drainage catheter placement, 11/29/2018. Clinical History: Emphysematous pyelonephritis. Modality: CT. Press Writer: Ember. Hardener Helper: None. Conscious sedation: None. Estimated Blood Loss: Less than 1 cc ml. Technique: After informed consent was obtained, which included the risks of bleeding, infection, injury to adjacent structures/bowel, adverse medication reaction, the patient's abdomen was scanned , after reviewing the previous outside CT from the same day. This exam was performed according to our departmental dose-optimization program which includes automated exposure control, adjustment of the mA and/or kV according to patient size and/or use of iterative reconstruction technique. The scan demonstrates large air collection lateral and posterior to the right kidney with acollection of contrast adjacent to the calyx suggestive of urinoma. After the skin was prepped and draped in the usual sterile manner, and local anesthesia was achieved with 1% lidocaine, a a 19-gaugeChiba needle was advanced into the air and contrast collection under CT guidance. After a small skin incision was made, a guidewire was advanced into the fluid collection. Subsequently, a soft tissue tract was created with 8 Uruguayan dilator. After the tract was dilated, an 8.5 [place]ruguayan all-purpose drainage catheter was placed into the [...] excreted contrast suggestive of urinoma. Signed: Jacob Paeport Verified Date/Time: 17:21:29 Reading Location: [facility] B1 P048 Angio Body Reading Room POCT- GLUCOSE [id number] 17:09:00 Test Item Value Reference Range Comments POC-GLUCOSE METER (BEAKER) 209 mg/dL 70-110 TESTED AT [address] (test fvmt=9524) [facility] [address] POCT-GLUCOSE [id number] 11:04:00 Test Item Value Reference Range Comments POC-GLUCOSE METER (BEAKER) 272 mg/dL 70-110 TESTED AT [address] (test udje=7174) [facility] [address] POCT-GLUCOSE [id number] 07:46:00 Test Item Value Reference Range Comments POC-GLUCOSE METER (BEAKER) 248 mg/dL 70-110 TESTED AT [address] (test pjud=9553) [facility] [address] VANCOMYCIN LEVEL, [id number] 05:54:00 Test Item Value Reference Range Comments VANCOMYCIN TROUGH (BEAKER) (test rmjw=668) 16.2 ug/mL 10.0-20.0 [id number] 05:27:00 Test Item Value Reference Range Comments MAGNESIUM (BEAKER) (test bito=704) 1.6 mg/dL 1.6-2.6 BASIC METABOLIC [id number] 05:27:00 Test Item Value Reference Range Comments SODIUM (BEAKER) (test 133 meq/L 136-145 hzik=931) POTASSIUM (BEAKER) (test 3.5 meq/L 3.5-5.1 iiyr=300) CHLORIDE (BEAKER) (test 94 meq/L 98-107 iues=377) CO2 (BEAKER) (test 31 meq/L 22-29 edgy=206) BLOOD UREA NITROGEN 8 mg/dL 7-21 (BEAKER) (test jgzu=611) CREATININE (BEAKER) (test 0.71 mg/dL 0.57-1.25 ubfe=423) GLUCOSE RANDOM (BEAKER) 244 mg/dL 70-105 (test lkur=581) CALCIUM (BEAKER) (test 8.2 mg/dL 8.4-10.2 hcaa=052) EGFR (BEAKER) (test 87 mL/min/1.73 sq m ESTIMATED GFR IS NOT hyvh=0039) ACCURATE CREATININE CLEARANCE IN PREDICTING GLOMERULAR FILTRATION RATE. ESTIMATED GFR IS NOT APPLICABLE FOR DIALYSIS PATIENTS. CBC W/PLT COUNT & AUTO [id number] 04:56:00 Test Item Value Reference Range Comments WHITE BLOOD CELL COUNT (BEAKER) (test pfkc=847) 20.8 K/ L 3.5-10.5 RED BLOOD CELL COUNT (BEAKER) (test nuhn=347) 4.25 M/ L 3.93-5.22 HEMOGLOBIN (BEAKER) (test skxr=034) 11.9 GM/DL 11.2-15.7 HEMATOCRIT (BEAKER) (test dnea=604) 36.9 % 34.1-44.9 MEAN CORPUSCULAR VOLUME (BEAKER) (test bcwc=950) 86.8 fL 79.4-94.8 MEAN CORPUSCULAR HEMOGLOBIN (BEAKER) (test 28.0 pg 25.6-32.2 bjqe=164) MEAN CORPUSCULAR HEMOGLOBIN CONC (BEAKER) (test 32.2 GM/DL 32.2-35.5 ozty=182) RED CELL DISTRIBUTION WIDTH (BEAKER) (test 14.8 % 11.7-14.4 kttg=594) PLATELET COUNT (BEAKER) (test uhyk=122) 338 K/CU MM 150-450 MEAN PLATELET VOLUME (BEAKER) (test iijx=399) 9.5 fL 9.4-12.3 NUCLEATED RED BLOOD CELLS (BEAKER) (test 0 /100 WBC 0-0 lmrg=669) NEUTROPHILS RELATIVE PERCENT (BEAKER) (test 81 % wnko=960) LYMPHOCYTES RELATIVE PERCENT (BEAKER) (test 8 % crmf=499) MONOCYTES RELATIVE PERCENT (BEAKER) (test 6 % olav=998) EOSINOPHILS RELATIVE PERCENT (BEAKER) (test 1 % jdij=493) BASOPHILS RELATIVE PERCENT (BEAKER) (test 1 % jdfu=952) NEUTROPHILS ABSOLUTE COUNT (BEAKER) (test 16.82 K/ L 1.56-6.13 atdq=148) LYMPHOCYTES ABSOLUTE COUNT (BEAKER) (test 1.70 K/ L 1.18-3.74 ejhw=587) MONOCYTES ABSOLUTE COUNT (BEAKER) (test 1.20 K/ L 0.24-0.36 ysoc=118) EOSINOPHILS ABSOLUTE COUNT (BEAKER) (test 0.12 K/ L 0.04-0.36 gwui=838) BASOPHILS ABSOLUTE COUNT (BEAKER) (test 0.11 K/ L 0.01-0.08 vjgg=868) IMMATURE GRANULOCYTES-RELATIVE PERCENT (BEAKER) 4 % 0-1 (test uxrz=4690) POCT-GLUCOSE [id number] 22:28:00 Test Item Value Reference Range Comments POC-GLUCOSE METER (BEAKER) 251 mg/dL 70-[address] [facility] [address] [facility] (test zjmz=4414) [facility] [address] [id number] 22:19:00 Test Item Value Reference Range Comments MAGNESIUM (BEAKER) (test 2.3 mg/dL 1.6-2.6 Specimen moderately hemolyzed prxk=181) BASIC METABOLIC [id number] 22:19:00 Test Item Value Reference Range Comments SODIUM (BEAKER) (test 133 meq/L 136-145 rhtz=744) POTASSIUM (BEAKER) (test 4.2 meq/L 3.5-5.1 Specimen moderately jqly=063) hemolyzed CHLORIDE (BEAKER) (test 95 meq/L 98-107 fqdr=858) CO2 (BEAKER) (test 31 meq/L 22-29 xkyt=170) BLOOD UREA NITROGEN 8 mg/dL 7-21 (BEAKER) (test rzqh=168) CREATININE (BEAKER) (test 0.81 mg/dL 0.57-1.25 Specimen moderately muzk=742) hemolyzed GLUCOSE RANDOM (BEAKER) 271 mg/dL 70-105 (test wmfr=285) CALCIUM (BEAKER) (test 8.5 mg/dL 8.4-10.2 dljb=303) EGFR (BEAKER) (test 75 mL/min/1.73 sq m ESTIMATED GFR IS NOT lhkn=0724) ACCURATE CREATININE CLEARANCE IN PREDICTING GLOMERULAR FILTRATION RATE. ESTIMATED GFR IS NOT APPLICABLE FOR DIALYSIS PATIENTS. RAD, CHEST, 1 VIEW, NON [id number] 21:22:00Reason for exam:-> HypoxiaShould this be performed at the bedside?->YesFINAL REPORT INDICATION: Hypoxia TECHNIQUE: Chest radiograph, single view, portable technique. FINDINGS / IMPRESSION: Heart shadow is enlarged and there is central pulmonary venous congestion. No overt pulmonary edema and no pleural effusion demonstrated. Right hemidiaphragm mildly elevated. No pneumothorax. Signed: Yadi Byrne MDReport Verified Date/Time: 11/30/2018 21:22:48 Reading Location: [facility] C013W Consult Reading Room POCT-GLUCOSE [id number] 17:22:00 Test Item Value Reference Range Comments POC-GLUCOSE METER (BEAKER) 270 mg/dL 70-110 TESTED AT [address] (test qkqm=7254) [place] [address] SCREEN, [id number] 12:55:00 Test Item Value Reference Range Comments TEST URINE (BEAKER) (test bioy=255) Negative POCT-GLUCOSE [id number] 11:37:00 Test Item Value Reference Range Comments POC-GLUCOSE METER (BEAKER) 263 mg/dL 70-110 TESTED AT [address] (test ydje=0756) [place] [id number] BODY FLUID CELL COUNT WITH [id number] 10:57:00 Test Item Value Reference Range Comments APPEARANCE FLUID (BEAKER) (test frnz=858) Hazy Clear COLOR FLUID (BEAKER) (test vcti=802) Brown Colorless, Straw RBC FLUID (BEAKER) (test rloz=782) 910205 /cu mm <=1 ADJUSTED WBC FLUID (BEAKER) (test igcf=1311) [address] /cu mm <=5 LINING CELLS (BEAKER) (test dezl=3042) 0 /cu mm <=1 NEUTROPHILS FLUID (BEAKER) (test vikv=1588) 100 % LYMPHS FLUID (BEAKER) (test zfek=050) 0 % MONO/MACROPHAGE FLUID (BEAKER) (test 0 % aopw=470) EOSINOPHILS FLUID (BEAKER) (test xdxk=738) 0 % BASO FLUID (BEAKER) (test wthr=986) 0 % CONTAINER BODY FLUID (BEAKER) (test EDTA Tube elmt=7146) HEMOGLOBIN [id number] 09:49:00 Test Item Value Reference Range Comments HEMOGLOBIN A1C (BEAKER) (test btol=433) 9.8 % 4.3-6.1 POCT-GLUCOSE [id number] 06:39:00 Test Item Value Reference Range Comments POC-GLUCOSE METER (BEAKER) 246 mg/dL 70-[address] [facility] [address] [facility] (test ufjj=5550) [facility] [address] BASIC METABOLIC [id number] 05:29:00 Test Item Value Reference Range Comments SODIUM (BEAKER) (test 135 meq/L 136-145 fcfy=225) POTASSIUM (BEAKER) (test 3.1 meq/L 3.5-5.1 uove=691) CHLORIDE (BEAKER) (test 97 meq/L 98-107 nsco=320) CO2 (BEAKER) (test 30 meq/L 22-29 ndip=578) BLOOD UREA NITROGEN 9 mg/dL 7-21 (BEAKER) (test kidi=757) CREATININE (BEAKER) (test 0.68 mg/dL 0.57-1.25 feir=079) GLUCOSE RANDOM (BEAKER) 246 mg/dL 70-105 (test cjgg=731) CALCIUM (BEAKER) (test 8.5 mg/dL 8.4-10.2 mmhv=091) EGFR (BEAKER) (test 92 mL/min/1.73 sq m ESTIMATED GFR IS NOT zlrz=6805) ACCURATE CREATININE CLEARANCE IN PREDICTING GLOMERULAR FILTRATION RATE. ESTIMATED GFR IS NOT APPLICABLE FOR DIALYSIS PATIENTS. LACTIC ACID, [id number] 05:17:00 Test Item Value Reference Range Comments LACTATE BLOOD VENOUS (2) (BEAKER) (test 1.0 mmol/L 0.5-2.2 gozk=6588) CBC W/PLT COUNT & AUTO [id number] 05:12:00 Test Item Value Reference Range Comments WHITE BLOOD CELL COUNT (BEAKER) (test rave=172) 23.9 K/ L 3.5-10.5 RED BLOOD CELL COUNT (BEAKER) (test ggxw=553) 4.07 M/ L 3.93-5.22 HEMOGLOBIN (BEAKER) (test szxd=835) 11.4 GM/DL 11.2-15.7 HEMATOCRIT (BEAKER) (test qnmw=042) 35.1 % 34.1-44.9 MEAN CORPUSCULAR VOLUME (BEAKER) (test xtrr=237) 86.2 fL 79.4-94.8 MEAN CORPUSCULAR HEMOGLOBIN (BEAKER) (test 28.0 pg 25.6-32.2 byzt=454) MEAN CORPUSCULAR HEMOGLOBIN CONC (BEAKER) (test 32.5 GM/DL 32.2-35.5 tepk=394) RED CELL DISTRIBUTION WIDTH (BEAKER) (test 14.6 % 11.7-14.4 bblw=290) PLATELET COUNT (BEAKER) (test qcth=816) 327 K/CU MM 150-450 MEAN PLATELET VOLUME (BEAKER) (test ktaf=001) 9.7 fL 9.4-12.3 NUCLEATED RED BLOOD CELLS (BEAKER) (test 0 /100 WBC 0-0 sbts=967) NEUTROPHILS RELATIVE PERCENT (BEAKER) (test 83 % homb=613) LYMPHOCYTES RELATIVE PERCENT (BEAKER) (test 7 % wxca=472) MONOCYTES RELATIVE PERCENT (BEAKER) (test 6 % kfso=406) EOSINOPHILS RELATIVE PERCENT (BEAKER) (test 0 % clbw=824) BASOPHILS RELATIVE PERCENT (BEAKER) (test 1 % kkfk=226) NEUTROPHILS ABSOLUTE COUNT (BEAKER) (test 19.80 K/ L 1.56-6.13 iqta=420) LYMPHOCYTES ABSOLUTE COUNT (BEAKER) (test 1.68 K/ L 1.18-3.74 uokc=794) MONOCYTES ABSOLUTE COUNT (BEAKER) (test 1.38 K/ L 0.24-0.36 ywlk=995) EOSINOPHILS ABSOLUTE COUNT (BEAKER) (test 0.08 K/ L 0.04-0.36 mwom=323) BASOPHILS ABSOLUTE COUNT (BEAKER) (test 0.11 K/ L 0.01-0.08 iern=256) IMMATURE GRANULOCYTES-RELATIVE PERCENT (BEAKER) 3 % 0-1 (test fhme=4063) LACTIC ACID, [id number] 01:23:00 Test Item Value Reference Range Comments LACTATE BLOOD VENOUS (2) (BEAKER) (test 1.3 mmol/L 0.5-2.2 bsiq=2315) T4, [id number] 23:43:00 Test Item Value Reference Range Comments FREE T4 (BEAKER) (test brcm=865) 0.77 ng/dL 0.70-1.48 TSH/FREE T4 IF [id number] 23:06:00 Test Item Value Reference Range Comments THYROID STIMULATING HORMONE (BEAKER) (test 10.96 uIU/mL 0.35-4.94 tkpj=599) [id number] 22:27:00 Test Item Value Reference Range Comments PROCALCITONIN (BEAKER) (test temo=8837) 0.28 ng/mL <0.05 SEPSIS RISK (ng/mL)Low: 0.05-0.50Intermediate: 0.51-2.00High: & gt;=2.01CBC W/PLT COUNT & AUTO [id number] 22:11:00 Test Item Value Reference Range Comments WHITE BLOOD CELL COUNT (BEAKER) (test ksin=371) 25.0 K/ L 3.5-10.5 RED BLOOD CELL COUNT (BEAKER) (test csvt=980) 4.16 M/ L 3.93-5.22 HEMOGLOBIN (BEAKER) (test chfr=018) 12.0 GM/DL 11.2-15.7 HEMATOCRIT (BEAKER) (test shlp=487) 35.4 % 34.1-44.9 MEAN CORPUSCULAR VOLUME (BEAKER) (test gcdo=471) 85.1 fL 79.4-94.8 MEAN CORPUSCULAR HEMOGLOBIN (BEAKER) (test 28.8 pg 25.6-32.2 xhdp=189) MEAN CORPUSCULAR HEMOGLOBIN CONC (BEAKER) (test 33.9 GM/DL 32.2-35.5 dllg=125) RED CELL DISTRIBUTION WIDTH (BEAKER) (test 14.5 % 11.7-14.4 htzb=175) PLATELET COUNT (BEAKER) (test jkrx=693) 371 K/CU MM 150-450 MEAN PLATELET VOLUME (BEAKER) (test idnc=945) 9.6 fL 9.4-12.3 NUCLEATED RED BLOOD CELLS (BEAKER) (test 0 /100 WBC 0-0 csdv=844) (CELLAVISION MANUAL DIFF)2018-11-29 22:11:00 Test Item Value Reference Range Comments NEUTROPHILS - REL (CELLAVISION)(BEAKER) (test 87 % yzei=7890) LYMPHOCYTES - REL (CELLAVISION)(BEAKER) (test 2 % mvtp=3185) MONOCYTES - REL (CELLAVISION)(BEAKER) (test 3 % cmly=3435) METAMYELOCYTES - REL (CELLAVISION)(BEAKER) (test 2 % 0-0 mbaf=1707) MYELOCYTES - REL (CELLAVISION)(BEAKER) (test 1 % 0-0 gjhk=3377) BANDS - REL (CELLAVISION)(BEAKER) (test 5 % 0-10 aprf=4137) NEUTROPHILS - ABS (CELLAVISION)(BEAKER) (test 21.75 K/ul 1.56-6.13 jvka=6159) LYMPHOCYTES - ABS (CELLAVISION)(BEAKER) (test 0.50 K/ul 1.18-3.74 tvtw=8045) MONOCYTES - ABS (CELLAVISION)(BEAKER) (test 0.75 K/uL 0.24-0.36 abmj=1372) METAMYELOCYTES - ABS (CELLAVISION)(BEAKER) (test 0.50 K/uL 0.00-0.00 xyxm=4782) MYELOCYTES-ABS (CELLAVISION)(BEAKER) (test 0.25 K/uL 0.00-0.00 unbz=3781) BANDS - ABS (CELLAVISION)(BEAKER) (test 1.25 K/uL 0.00-0.80 enzt=3838) TOTAL COUNTED (BEAKER) (test codu=3778) 100 WBC MORPHOLOGY (BEAKER) (test nqge=001) Normal GIANT PLATELETS (BEAKER) (test ypnt=784) Present POLYCHROMATOPHILLIC RBCS(BEAKER) (test jxce=048) 1+ few ARTIFACT (CELLAVISION)(BEAKER) (test bjes=8865) Present PLATELET CONCENTRATION (CELLAVISION)(BEAKER) Adequate (test rqjs=9032) Received comment: User comments: Slide comments:[id number] 22:04:00 Test Item Value Reference Range Comments PHOSPHORUS (BEAKER) (test qler=305) 2.5 mg/dL 2.3-4.7 [id number] 22:04:00 Test Item Value Reference Range Comments MAGNESIUM (BEAKER) (test tsfx=826) 1.3 mg/dL 1.6-2.6 BASIC METABOLIC [id number] 22:04:00 Test Item Value Reference Range Comments SODIUM (BEAKER) (test 133 meq/L 136-145 eixo=475) POTASSIUM (BEAKER) (test 3.2 meq/L 3.5-5.1 whfi=762) CHLORIDE (BEAKER) (test 95 meq/L 98-107 aqkc=566) CO2 (BEAKER) (test 26 meq/L 22-29 poci=419) BLOOD UREA NITROGEN 9 mg/dL 7-21 (BEAKER) (test kpwo=540) CREATININE (BEAKER) (test 0.69 mg/dL 0.57-1.25 eqto=562) GLUCOSE RANDOM (BEAKER) 216 mg/dL 70-105 (test zwmg=908) CALCIUM (BEAKER) (test 8.1 mg/dL 8.4-10.2 uutp=638) EGFR (BEAKER) (test 90 mL/min/1.73 sq m ESTIMATED GFR IS NOT drfx=2367) ACCURATE CREATININE CLEARANCE IN PREDICTING GLOMERULAR FILTRATION RATE. ESTIMATED GFR IS NOT APPLICABLE FOR DIALYSIS PATIENTS. LACTIC ACID, [id number] 21:59:00 Test Item Value Reference Range Comments LACTATE BLOOD VENOUS (2) 1.1 mmol/L 0.5-2.2 Specimen slightly hemolyzed (BEAKER) (test gmem=4759) [id number] 21:54:00 Test Item Value Reference Range Comments PARTIAL THROMBOPLASTIN TIME (BEAKER) (test 29.3 seconds 22.5-36.0 avwl=516) PROTHROMBIN TIME/[id number] 21:53:00 Test Item Value Reference Range Comments PROTIME (BEAKER) (test afem=998) 14.3 seconds 11.9-14.2 INR (BEAKER) (test avut=837) 1.2 <=5.9 Effective 11/04/2018: PT Reference Range ChangeNew: 11.9-14.2 Previous: 11.7- 14.7RECOMMENDED COUMADIN/WARFARIN INR THERAPY RANGESSTANDARD DOSE: 2.0-3.0 Includes: PROPHYLAXIS for venous thrombosis, systemic embolization; TREATMENT for venous thrombosis and/or pulmonary embolus.HIGH RISK: Target INR is2.5-3.5 for patients wiht mechanical heart valves.URINALYSIS W/ REFLEX URINE [id number] 21:40:00 Test Item Value Reference Range Comments COLOR (BEAKER) (test yloz=818) [place] CLARITY (BEAKER) (test mtem=589) Cloudy SPECIFIC GRAVITY UA (BEAKER) (test ceyu=302) 1.021 1.001-1.035 PH UA (BEAKER) (test fnfw=570) 6.0 5.0-8.0 PROTEIN UA (BEAKER) (test ucol=075) 300 mg/dL Negative GLUCOSE UA (BEAKER) (test jwag=055) 500 mg/dL Negative KETONES UA (BEAKER) (test wwsj=851) 60 mg/dL Negative BILIRUBIN UA (BEAKER) (test yjjk=427) Negative Negative BLOOD UA (BEAKER) (test aznf=606) Large Negative NITRITE UA (BEAKER) (test ligu=673) Negative Negative LEUKOCYTE ESTERASE UA (BEAKER) (test spmj=447) Large Negative UROBILINOGEN UA (BEAKER) (test wyqy=388) 0.2 mg/dL 0.2-1.0 RBC UA (BEAKER) (test vlno=791) 970 /HPF WBC UA (BEAKER) (test hmzv=039) 1940 /HPF SOURCE(BEAKER) (test ngvd=8290) POCT-GLUCOSE [id number] 20:41:00 Test Item Value Reference Range Comments POC-GLUCOSE METER (BEAKER) 251 mg/dL 70-[address] [facility] [address] (test germ=7043) [facility] [id number]
--- NOTE | 2018-12-16 10:38 | RAD REPORT ---
EXAM DESCRIPTION: CT - Stone Protocol - 12/16/2018 10:19 am CLINICAL HISTORY: Abdominal pain. COMPARISON: None. TECHNIQUE: Computed axial tomography of the abdomen pelvis was obtained without oral or IV contrast. Lack of IV and oral contrast limits evaluation of solid organs, bowel, and vessels. Coronal reformat carmen images were obtained and reviewed. All CT scans are performed using dose optimization technique as appropriate and may include automated exposure control or mA/KV adjustment according to patient size. FINDINGS: 2 millimeter nonobstructing left renal calculus Right ureteral stent in place. No hydronephrosis. 2.6 centimeter fluid collection mid pole right kidn ey. Air is present within the right kidney extending into the right perirenal space. The collection o f air 6 centimeters. Air and ill-defined fluid extend posteriorly abutting the right pleura and right posterior musculature also measuring 6 centimeter. A Vallejo catheter is present within the bladder. . The liver, spleen, pancreas and adrenals appear grossly normal There is no evidence of diverticulitis. The appendix appears normal 3.3 centimeter cystic mass abuts the left ovary containing calcification. IMPRESSION: Right renal/perirenal abscess. Right ureteral stent in place without hydronephrosis 3.3 centimeter cystic mass abutting the left ovary containing calcification. Further evaluation with ultrasound recommended
[2018-12-16 11:28] LABS: Absolute Lymphocytes (CBC) 1.7 K/uL (0.7-4.9); Basophils % 0.5 % (0-1.3); Eosinophils % 2.6 % (0-4.4); Lymphocytes % 10.3 % (15.3-44.8); MPV 7.5 fL (7.6-11.3); Monocytes % 9.5 % (3.3-12.3); RBC Red Blood Cell Count 4.55 M/uL (3.86-4.86)
[2018-12-16 11:58] LABS: ALT/SGPT 27 U/L (12-78); AST/SGOT 15 U/L (15-37); Albumin 2.6 g/dL (3.4-5.0); Alkaline Phosphatase 90 U/L (45-117); BUN Blood Urea Nitrogen 19 mg/dL (7-18); Bicarbonate 28 mmol/L (21-32); Bilirubin Direct < 0.1 mg/dL (0-0.2); Bilirubin Total 0.3 mg/dL (0.2-1.0); CKMB Creatine Kinase MB < 1.0 ng/mL (0.3-3.6); Creatine Phosphokinase 24 U/L (26-192); Glucose Level 179 mg/dL (74-106); Lipase 111 U/L (73-393); Potassium 3.8 mmol/L (3.5-5.1); Protein, Total 8.4 g/dL (6.4-8.2); Sodium Level 135 mmol/L (136-145)
[2018-12-16 13:13] LABS: Protime INR 1.1
[2018-12-16] MEDS ORDERED: DIPHENOX/ATROP SULF 1 TAB PO ONE (14:09)
[2018-12-16 14:42] LABS: Urine Bacteria LOADED /HPF (<20); Urine Culture Reflex Order REFLEXED; Urine RBC 20-50 /HPF (NONE SEEN)
[2018-12-16 14:43] LABS: Urine Yeast PRESENT (NONE SEEN)
[2018-12-16] MEDS ORDERED: LIDOCAINE VISCOUS 2% SOLN 15 ML UDC ONE (14:44)
[2018-12-16] MEDS ORDERED: CEFTRIAXONE/SWI 1gm 1 GM/10 ML SYR ONE (16:19)
--- NOTE | 2018-12-16 16:24 | RAD REPORT ---
EXAM DESCRIPTION: CT - Abdomen Pelvis W Contrast - 12/16/2018 3:52 pm CLINICAL HISTORY: Abdominal pain COMPARISON: December 16, 2018 cat scan TECHNIQUE: Computed axial tomography of the abdomen pelvis was obtained. 100 cc Isovue-300 was admin istered intravenously. Oral contrast was not requested which limits evaluation of bowel. All CT scans are performed using dose optimization technique as appropriate and may include automated exposure control or mA/KV adjustment according to patient size. FINDINGS: Delayed images demonstrate contrast within the lateral aspect of the right renal parenchym a extending to the renal capsule. Fluid and air is present within the lateral right kidney extending into the right perirenal space superiorly and inferiorly. 2 millimeter nonobstructing left renal calculus A right ureteral stent is in place without hydronephrosis. Liver, spleen, pancreas, adrenals and left kidney appear unremarkable. There is no evidence of diverticulitis. The appendix appears normal 3.3 centimeter cystic mass abuts the left ovary containing calcification. . IMPRESSION: Contrast from the calices is present within the lateral aspect of the right kidney exten ding to the renal capsule. An abscess measuring 3.5 centimeters is present within the right kidney wh ich extends into the right perirenal space superiorly and inferiorly The cranial caudal length of air equals 13 centimeters. Ill-defined fluid is present within portions of this
[2018-12-16 17:11] LABS: Urine Blood 3+ (NEG); Urine Glucose NEGATIVE (NEG); Urine Protein 3+ (NEG)
[2018-12-16] MEDS ORDERED: LORazepam 2 MG/ML VIAL ONE ×2 (17:59→20:34)
--- NOTE | 2018-12-16 20:33 | EDPHYS ---
Physician Documentation [facility] Name: Dejah Francis Age: 48 yrs Sex: Female : 1970 Arrival Date: 12/16/2018 Time: 09:32 Bed 17 Private MD: ED Physician Sedrick Zaragoza HPI: 12/16 11:06 This 48 yrs old Female presents to ER via Wheelchair with complaints of Fall snw Injury - drainage tube unattached. 11:06 Details of fall: The patient fell from an upright position, while standing. Onset: The snw symptoms/episode began/occurred gradually. Onset: The symptoms/episode began/occurred 2 day(s) ago, and became persistent. Associated injuries: The patient sustained no obvious injury. Severity of symptoms: At their worst the symptoms were moderate. The patient has experienced a previous episode, last month. 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 Today CT shows right renal/perirenal abscess, unclear if this is residual from previous transfer or developing. Will await labs and discuss with Urology at [facility]. Historical: - Allergies: 09:52 Ibuprofen; ss - Home Meds: 09:52 Humalog 100 unit/mL Sub-Q soln 10 mg twice a day for Type 2 Diabetes Mellitus [Active]; hj - PMHx: 09:52 CVA; Diabetes - NIDDM; Thyroid problem; ss - PSHx: 09:52 cyst removal - left shoulder; drain placed to drain fluid from around kidney; ss - Immunization history:: Adult Immunizations unknown. - Social history:: Smoking status: Patient/guardian denies using tobacco. - Ebola Screening: : Patient denies exposure to infectious person Patient denies travel to an Ebola-affected area in the 21 days before illness onset. ROS: 11:05 Constitutional: Negative for fever, chills, and weight loss, pt states she feels "like snw shit" Eyes: Negative for injury, pain, redness, and discharge, ENT: Negative for injury, pain, and discharge, Neck: Negative for injury, pain, and swelling, Cardiovascular: Negative for chest pain, palpitations, and edema, Respiratory: Negative for shortness of breath, cough, wheezing, and pleuritic chest pain, Abdomen/GI: Negative for abdominal pain, nausea, vomiting, diarrhea, and constipation, Back: Negative for injury and pain, MS/Extremity: Negative for injury and deformity, Skin: Negative for injury, rash, and discoloration, Neuro: Negative for headache, weakness, numbness, tingling, and seizure. 11:05 : Positive for difficulty with nephrostomy tube not suctioning. Exam: 11:04 Head/Face: Normocephalic, atraumatic. Eyes: Pupils equal round and reactive to light, snw extra-ocular motions intact. Lids and lashes normal. Conjunctiva and sclera are non-icteric and not injected. Cornea within normal limits. Periorbital areas with no swelling, redness, or edema. ENT: Nares patent. No nasal discharge, no septal abnormalities noted. Tympanic membranes are normal and external auditory canals are clear. Oropharynx with no redness, swelling, or masses, exudates, or evidence of obstruction, uvula midline. Mucous membranes moist. Neck: Trachea midline, no thyromegaly or masses palpated, and no cervical lymphadenopathy. Supple, full range of motion without nuchal rigidity, or vertebral point tenderness. No Meningismus. Chest/axilla: Normal chest wall appearance and motion. Nontender with no deformity. No lesions are appreciated. Cardiovascular: Regular rate and rhythm with a normal S1 and S2. No gallops, murmurs, or rubs. Normal PMI, no JVD. No pulse deficits. Respiratory: Lungs have equal breath sounds bilaterally, clear to auscultation and percussion. No rales, rhonchi or wheezes noted. No increased work of breathing, no retractions or nasal flaring. Abdomen/GI: Soft, non-tender, with normal bowel sounds. No distension or tympany. No guarding or rebound. No evidence of tenderness throughout. Skin: Warm, mildly diaphoretic with normal turgor. Normal color with no rashes, no lesions, and no evidence of cellulitis. scattered ecchymosis MS/ Extremity: Pulses equal, no cyanosis. Neurovascular intact. Full, normal range of motion. 11:04 Constitutional: The patient appears alert, obese. 11:04 Neuro: Orientation: appropriate for stated age, Mentation: no acute changes, per family, slow to respond. Vital Signs: 09:52 BP 124 / 78; Pulse 81; Resp 18; Temp 97.4(TE); Pulse Ox 97% on R/A; Weight 136.08 kg; ss Height 5 ft. 9 in. (175.26 cm); Pain 4/10; 10:54 BP 125 / 76; Pulse 80; Resp 18; Pulse Ox 96% on R/A; hj 12:25 BP 111 / 73; Pulse 91; Resp 16 S; Temp 98.8(O); Pulse Ox 97% on R/A; aa5 13:30 BP 108 / 65; Pulse 84; Resp 18 S; Pulse Ox 96% on R/A; aa5 16:34 BP 105 / 67; Pulse 94; Resp 18 S; Pulse Ox 96% on R/A; Pain 0/10; aa5 18:00 BP 102 / 88; Pulse 100; Resp 16 S; Temp 98.1(O); Pulse Ox 95% on R/A; aa5 19:45 BP 114 / 69; Pulse 105; Resp 18; Pulse Ox 96% on R/A; tl2 20:47 BP 111 / 74; Pulse 103; Resp 18; Pulse Ox 95% on R/A; tl2 22:22 BP 120 / 72; Pulse 100; Resp 18; Pulse Ox 95% on R/A; tl2 09:52 Body Mass Index 44.30 (136.08 kg, 175.26 cm) ss MDM: 10:03 Patient medically screened. snw 12:51 Data reviewed: vital signs, nurses notes. Data interpreted: Pulse oximetry: on room air snw is 97 %. Interpretation: normal. Counseling: I had a detailed discussion with the patient and/or guardian regarding: the historical points, exam findings, and any diagnostic results supporting the discharge/admit diagnosis, lab results, radiology results. 12:51 Awaiting: labs results, nephrostomy tube distant from kidney per Dr. Hayes (radiology), snw coiled beneath skin. Sutures cut and tube removed. Pt tolerated well. 13:56 ED course: attempting to speak with Urology at [facility] re: CT findings and snw s/s. 14:15 Physician consultation: Dr. Her was called at 14:15, was contacted at 14:15, snw regarding regarding transfer, to [facility]. consult, patient's condition, would like further tests performed, Expiratory phase CT abd with contrast requested. 18:00 Physician consultation: [facility] was called at 18:30, regarding regarding snw transfer. 19:38 Awaiting: hospitalist from [facility] for transfer. Transition of care: After a detail snw discussion of the patient's case, care is transferred to Mango Dumont MD. ED course: Dr. Her instructed this facility to let him know when the pt gets transfer acceptance post expiratory phase CT with contrast. Dr. Dumont notified. 20:31 ED course: discussed and accepted by hospitalist and dr. damian. ma2 12/16 10:56 Order name: Basic Metabolic Panel; Complete Time: 12:15 snw 12/16 10:56 Order name: Blood Culture Adult (2) snw 12/16 10:56 Order name: CBC with Diff; Complete Time: 12:15 snw 12/16 10:56 Order name: Ckmb; Complete Time: 12:15 snw 12/16 10:56 Order name: CPK; Complete Time: 12:15 snw 12/16 10:56 Order name: Lactate; Complete Time: 12:15 snw 12/16 10:56 Order name: LFT's; Complete Time: 12:15 snw 12/16 10:56 Order name: Lipase; Complete Time: 12:15 snw 12/16 10:56 Order name: Procalcitonin; Complete Time: 12:50 snw 12/16 10:56 Order name: Protime (+inr); Complete Time: 13:37 snw 12/16 10:56 Order name: Ptt, Activated; Complete Time: 13:37 snw 12/16 10:56 Order name: Urine Microscopic Only; Complete Time: 15:44 snw 12/16 14:12 Order name: Urine Dipstick--Ancillary (enter results); Complete Time: 17:17 ms 12/16 14:12 Order name: Urine --Ancillary (enter results); Complete Time: 17:17 ms 12/16 10:02 Order name: CT Stone Protocol; Complete Time: 10:41 snw 12/16 10:56 Order name: Misc. Order: Drain care; Complete Time: 14:09 snw 12/16 10:56 Order name: Accucheck; Complete Time: 11:20 snw 12/16 10:56 Order name: Cardiac monitoring; Complete Time: 10:57 snw 12/16 10:56 Order name: EKG - Nurse/Tech; Complete Time: 12:12 snw 12/16 10:56 Order name: IV Saline Lock - Large Bore; Complete Time: 11:20 snw 12/16 13:09 Order name: EKG Electrocardiogram EDMS 12/16 15:34 Order name: Abdomen ; Complete Time: 17:56 EDMS 12/16 15:35 Order name: Urine Culture EDMS 12/16 10:56 Order name: Labs collected and sent; Complete Time: 11:20 snw 12/16 10:56 Order name: O2 Per Protocol; Complete Time: 10:57 snw 12/16 10:56 Order name: O2 Sat Monitoring; Complete Time: 10:57 snw 12/16 10:56 Order name: Urine Dipstick-Ancillary (obtain specimen); Complete Time: 14:09 snw 12/16 11:40 Order name: Labs - recollect needed; Complete Time: 12:40 ms Administered Medications: 14:00 Drug: LoMOTIL 2 tabs Route: PO; aa5 16:34 Follow up: Response: No adverse reaction aa5 14:30 Drug: Viscous Lidocaine Liquid (4 %) 10 ml {Note: admnistered to perineum .} Route: aa5 Mucous Membrane; 16:34 Follow up: Response: Pain is decreased aa5 16:34 Drug: Rocephin 1 grams Route: IV; Rate: calculated rate; Site: right antecubital; aa5 16:45 Follow up: Response: No adverse reaction aa5 17:47 Drug: Ativan 1 mg Route: IVP; Site: right antecubital; aa5 18:00 Follow up: Response: No adverse reaction aa5 20:25 Drug: NS 0.9% 1000 ml Route: IV; Rate: 1 bolus; Site: right antecubital; tl2 22:24 Follow up: IV Status: Infusion continued upon transfer tl2 20:26 Drug: Ativan 1 mg Route: IVP; Site: right antecubital; tl2 21:00 Follow up: Response: No adverse reaction; Anxiety decreased tl2 Disposition: 20:32 Co-signature as Attending Physician, Mango Dumont MD. ma2 Disposition: 12/16/18 20:32 Transfer ordered to Other Acute Care Facility. Diagnosis is Renal and perinephric abscess. - Reason for transfer: Higher level of care. - Accepting physician is Hospitalist and dr. her. - Condition is Stable. - Problem is new. - Symptoms are unchanged. Signatures: Dispatcher [employer] EDMS KamilahFelisa, LICENSED TAX CONSULTANT-C LICENSED TAX CONSULTANT-Csnw Jackie Hays ms MaldonadoCarmen, RN RN aa5 Ami Maxwell RN RN ss Yonis Ward, SANA RN Luz Gonzalez RN RN tl2 Mango Dumont MD MD ma2 Corrections: (The following items were deleted from the chart) 19:11 11:06 pt had nephrostomy tube placed 11/29/08 at [facility] for [facility] emphysematous pyelonephritis. Today CT shows right renal/perirenal abscess, unclear if this is residual from previous transfer or developing. Will await labs and discuss with Nephrology at [facility] 22:24 20:32 12/16/2018 20:32 Transfer ordered to Other Acute Care Facility. Diagnosis is tl2 Renal and perinephric abscess. Reason for transfer: Higher level of care. Accepting physician is Hospitalist and dr. her. Condition is Stable. Problem is new. Symptoms are unchanged. ma2
--- NOTE | 2018-12-16 20:33 | ER ---
Nurse's Notes [facility] Name: Dejah Francis Age: 48 yrs Sex: Female : 1970 Arrival Date: 12/16/2018 Time: 09:32 Bed 17 Private MD: Diagnosis: Renal and perinephric abscess Presentation: 12/16 09:47 Presenting complaint: Patient states: Fall from standing two days ago. Patient denies ss pain from the fall other than some soreness. Pt is concerned because she recently had surgery to drain fluid from around her kidney, but the drain is not holding suction. Transition of care: patient was not received from another setting of care. Onset of symptoms was December 14, 2018. Risk Assessment: Do you want to hurt yourself or someone else? Patient reports no desire to harm self or others. Initial Sepsis Screen: Does the patient meet any 2 criteria? No. Patient's initial sepsis screen is negative. Does the patient have a suspected source of infection? Yes: Other: patient is being treated for a kidney infection. Care prior to arrival: None. 09:47 Method Of Arrival: Wheelchair ss 09:47 Acuity: ANDREA 3 ss Historical: - Allergies: 09:52 Ibuprofen; ss - Home Meds: 09:52 Humalog 100 unit/mL Sub-Q soln 10 mg twice a day for Type 2 Diabetes Mellitus [Active]; hj - PMHx: 09:52 CVA; Diabetes - NIDDM; Thyroid problem; ss - PSHx: 09:52 cyst removal - left shoulder; drain placed to drain fluid from around kidney; ss - Immunization history:: Adult Immunizations unknown. - Social history:: Smoking status: Patient/guardian denies using tobacco. - Ebola Screening: : Patient denies exposure to infectious person Patient denies travel to an Ebola-affected area in the 21 days before illness onset. Screenin:45 Abuse screen: Denies threats or abuse. Denies injuries from another. Nutritional hj screening: No deficits noted. Tuberculosis screening: No symptoms or risk factors identified. Fall Risk None identified. Assessment: 09:52 Reassessment: Assisted patient to restroom VIA wheelchair. Pt had large BM. Is now back ss in bed in gown, awaiting evaluation from provider. 09:52 General: Appears in no apparent distress. uncomfortable, Behavior is calm, cooperative, hj appropriate for age. Pain:. Neuro: Level of Consciousness is awake, alert, obeys commands, Oriented to person, place, time, situation, Appropriate for age. Cardiovascular: Capillary refill < 3 seconds Patient's skin is warm and dry. Respiratory: Airway is patent Respiratory effort is even, unlabored, Respiratory pattern is regular, symmetrical. GI: No signs and/or symptoms were reported involving the gastrointestinal system. : No signs and/or symptoms were reported regarding the genitourinary system. EENT: No signs and/or symptoms were reported regarding the EENT system. Derm: No signs and/or symptoms reported regarding the dermatologic system. Musculoskeletal: No signs and/or symptoms reported regarding the musculoskeletal system. 10:30 Reassessment: pt assisted to bathroom. sg 10:53 Reassessment: assisted to the bathroom;. hj 11:57 Reassessment: pt assisted to bathroom. sg 12:10 Reassessment: Pt assisted to bathroom via wheelchair, pt states "I just have diarrhea aa5 today". Pt placed back in bed . 12:13 General: Appears comfortable, unkempt, Behavior is calm, cooperative. Pain: Complains aa5 of pain in drainage site, right mid back Pain currently is 4 out of 10 on a pain scale. Quality of pain is described as Pt states "It's just sore". Neuro: Level of Consciousness is awake, alert, obeys commands, Oriented to person, place, time, situation. Cardiovascular: Patient's skin is warm and dry. Respiratory: Airway is patent Respiratory effort is even, unlabored, Respiratory pattern is regular, symmetrical. GI: Abdomen is obese, Bowel sounds present X 4 quads. Abd is soft and non tender X 4 quads. Reports diarrhea, Patient currently denies nausea, vomiting. : Vallejo in place to gravity drainage. EENT: No signs and/or symptoms were reported regarding the EENT system. Derm: Skin is pink, warm \\T\\ dry. Tulio-ocasio drain noted to right mid back. Musculoskeletal: Range of motion: intact in all extremities. 12:15 Reassessment: 2 nd set of blood cultures completed and recollect PT/PTT drawn and sent aa5 to lab. . 13:30 Reassessment: DALTON drain removed by TRAVELING ELECTRICIAN, site dressed with gauze and tape by TRAVELING ELECTRICIAN.. aa5 14:00 Reassessment: Patient is alert, oriented x 3, equal unlabored respirations, skin aa5 warm/dry/pink. Urine specimen collected from Vallejo tubing. Sent to lab. . 14:30 Reassessment: Pt c/o pain to Vallejo catheter's site and pt requesting pain medication. aa5 TRAVELING ELECTRICIAN was notified, TRAVELING ELECTRICIAN states to change catheter if pt agrees and to administer topical lidocaine to site. Perineal care was provided, pt refused for Vallejo catheter to be changed, only Vallejo tubing and Vallejo bag changed. Pt also notified of need to collect stool specimen per provider, pt verbalizes understanding. . 14:53 Reassessment: Pt taken to CT via stretcher. . aa5 16:34 Reassessment: Patient is alert, oriented x 3, equal unlabored respirations, skin aa5 warm/dry/pink. Patient states feeling better. Pain: Pain currently is 0 out of 10 on a pain scale. 17:47 Reassessment: Patient is alert, oriented x 3, equal unlabored respirations, skin aa5 warm/dry/pink. Patient denies pain at this time. 18:00 Reassessment: Patient is alert, oriented x 3, equal unlabored respirations, skin aa5 warm/dry/pink. Awaiting disposition. . 18:55 Reassessment: TRAVELING ELECTRICIAN reports attempting transfer. Pt and family notified of wait time. Pt aa5 now resting in bed with eyes closed, respirations even and unlabored, skin is pink/warm/dry. 20:30 Reassessment: Patient appears in no apparent distress at this time. Patient and/or tl2 family updated on plan of care and expected duration. Pain level reassessed. Patient is alert, oriented x 3, equal unlabored respirations, skin warm/dry/pink. Pt reports feeling anxious, new orders see MAR. 21:02 Reassessment: gave report to Jing at [facility]. [facility] ETA approx 1 hour, Pt and tl2 family notified. 22:22 Reassessment: Patient appears in no apparent distress at this time. Patient and/or tl2 family updated on plan of care and expected duration. Pain level reassessed. Patient is alert, oriented x 3, equal unlabored respirations, skin warm/dry/pink. pt stable for transfer. Vital Signs: 09:52 BP 124 / 78; Pulse 81; Resp 18; Temp 97.4(TE); Pulse Ox 97% on R/A; Weight 136.08 kg; ss Height 5 ft. 9 in. (175.26 cm); Pain 4/10; 10:54 BP 125 / 76; Pulse 80; Resp 18; Pulse Ox 96% on R/A; hj 12:25 BP 111 / 73; Pulse 91; Resp 16 S; Temp 98.8(O); Pulse Ox 97% on R/A; aa5 13:30 BP 108 / 65; Pulse 84; Resp 18 S; Pulse Ox 96% on R/A; aa5 16:34 BP 105 / 67; Pulse 94; Resp 18 S; Pulse Ox 96% on R/A; Pain 0/10; aa5 18:00 BP 102 / 88; Pulse 100; Resp 16 S; Temp 98.1(O); Pulse Ox 95% on R/A; aa5 19:45 BP 114 / 69; Pulse 105; Resp 18; Pulse Ox 96% on R/A; tl2 20:47 BP 111 / 74; Pulse 103; Resp 18; Pulse Ox 95% on R/A; tl2 22:22 BP 120 / 72; Pulse 100; Resp 18; Pulse Ox 95% on R/A; tl2 09:52 Body Mass Index 44.30 (136.08 kg, 175.26 cm) ED Course: 09:32 Patient arrived in ED. as 09:41 Yonis Ward, SANA is Primary Nurse. hj 09:51 Triage completed. ss 09:52 Arm band placed on right wrist. 09:52 Patient has correct armband on for positive identification. Placed in gown. Bed in low hj position. Call light in reach. Side rails up X 1. Adult w/ patient. 09:55 Felisa Triana FNP-C [facility]. snw 09:55 Sedrick Zaragoza MD is Attending Physician. snw 10:25 CT Stone Protocol In Process Unspecified. EDMS 11:15 Initial lab(s) drawn, by me, sent to lab. First set of blood cultures drawn by me. hj 11:19 Inserted saline lock: 22 gauge in left hand, using aseptic technique. Blood collected. hj 11:29 Carmen Maldonado, RN is Primary Nurse. aa5 11:40 Report received from SANA Somers. aa5 12:25 EKG done, by systems technologist. reviewed by Felisa STRICKLAND. dt2 15:40 IV discontinued, intact, bleeding controlled, No redness/swelling at site. Pressure aa5 dressing applied, 22 G to L hand dc'd in CT. geophysical data technician inserted 22 G to R AC. 16:16 Abdomen In Process Unspecified. EDMS 19:10 Report given to SANA Escobar. aa5 22:23 No provider procedures requiring assistance completed. Patient transferred, IV remains tl2 in place. Administered Medications: 14:00 Drug: LoMOTIL 2 tabs Route: PO; aa5 16:34 Follow up: Response: No adverse reaction aa5 14:30 Drug: Viscous Lidocaine Liquid (4 %) 10 ml {Note: admnistered to perineum .} Route: aa5 Mucous Membrane; 16:34 Follow up: Response: Pain is decreased aa5 16:34 Drug: Rocephin 1 grams Route: IV; Rate: calculated rate; Site: right antecubital; aa5 16:45 Follow up: Response: No adverse reaction aa5 17:47 Drug: Ativan 1 mg Route: IVP; Site: right antecubital; aa5 18:00 Follow up: Response: No adverse reaction aa5 20:25 Drug: NS 0.9% 1000 ml Route: IV; Rate: 1 bolus; Site: right antecubital; tl2 22:24 Follow up: IV Status: Infusion continued upon transfer tl2 20:26 Drug: Ativan 1 mg Route: IVP; Site: right antecubital; tl2 21:00 Follow up: Response: No adverse reaction; Anxiety decreased tl2 Outcome: 20:32 ER care complete, transfer ordered by . ma2 22:23 Transferred by ground EMS to [facility], [facility], Transfer form completed. tl2 22:23 Condition: stable 22:23 Discharge instructions given to patient, family, Instructed on the need for transfer. 22:24 Patient left the ED. tl2 Signatures: Dispatcher [employer] EDJudah Tyler RN RN sg Therrien, Shelly, FNP-C FNP-Rosalinda Lane as Carmen Maldonado RN RN aa5 Ami Maxwell, SANA RN ss Yonis Ward RN RN hj Luz Gonzalez RN RN tl2 Mango Dumont MD MD or2 Anjana Rae dt2 Corrections: (The following items were deleted from the chart) 15:02 14:30 Reassessment: Pt c/o pain to Vallejo catheter's site and pt requesting pain aa5 medication. TRAVELING ELECTRICIAN was notified, TRAVELING ELECTRICIAN states to change catheter if pt agrees and to administer topical lidocaine to site. Perineal care was provider, pt refused for Vallejo catheter to be changed, only Vallejo tubing and Vallejo bag changed. Pt also notified to collect stool specimen per provider, pt verbalizes understanding. . aa5
[2018-12-16] MEDS ORDERED: NA CHLORIDE 0.9% 1,000 ML ONE (20:34)
--- NOTE | 2018-12-17 07:38 | EKG ---
Test Date: 2018-12-16 Test Time: 12:02:54 Freelance Designer: PETRONA MEASUREMENT RESULTS: Intervals: Rate: 91 NV: 158 QRSD: 92 QT: 368 QTc: 452 [place]: P: 62 NV: 158 QRS: 68 T: 66 INTERPRETIVE STATEMENTS: Normal sinus rhythm Normal ECG Compared to ECG 11/29/2018 15:19:31 Sinus tachycardia no longer present T-wave abnormality no longer present Electronically Signed On 12-17-18 07:36:09 CDT by Ignacio Dunlap
== END 2018-12-16 22:24 ==
LOC: ER 09:29
DX: N15.1 Renal and perinephric abscess (principal); T85.618A Breakdown (mechanical) of other specified internal prosthetic devices, implants and grafts, initial encounter; W19.XXXA Unspecified fall, initial encounter; Y93.9 Activity, unspecified; Y92.9 Unspecified place or not applicable; Z79.4 Long term (current) use of insulin; Z88.6 Allergy status to analgesic agent; E11.9 Type 2 diabetes mellitus without complications
CPT/HCPCS: 36415; 74176; 74177; 76377; 80048; 80076; 81003; 81015; 81025; 82550; 82553; 83605; 83690; 84145; 85025; 85610; 85730; 87040; 87086; 87088; 93005; J0696; J7030; Q9967

== ENCOUNTER 2018-12-21 08:53 | Emergency (ER) | payer SELFPAY ==
--- OUTSIDE RECORDS SUMMARY | 2018-12-21 09:02 | XMS REPORT | Clinical Summary ---
:1970 Author Organization [facility] Address [address] [place] [address] Care Team Providers Name Role Phone Michael Perkins Primary Care Provider Allergies Active Allergy Reactions [...] (three) times daily as needed (bladder spasms). folic acid (FOLVITE) 1 MG TAKE 1 TABLET 5 11/06/2018 Active tablet BY MOUTH ONCE DAILY FOR 30 DAYS cefpodoxime (VANTIN) 200 Take 1 tablet 20 tablet 0 12/19/2018 Active MG tablet (200 mg total) 9 by mouth 2 (two) times daily for 10 days. cefdinir (OMNICEF) 300 MG Take 1 capsule 6 capsule 0 12/10/2018 capsule (300 mg total) 9 by mouth 2 (two) times daily for 3 days. traMADol (ULTRAM) 50 mg Take 1 tablet 15 tablet 0 12/10/2018 tablet (50 mg total) 9 by mouth every 6 (six) hours as needed for up to 10 days. Max Daily Amount: 200 mg Active Problems Problem Noted Date Pyelonephritis 11/30/2018 Resolved Problems Problem Noted Date Resolved Date Severe sepsis 11/30/2018 12/08/2018 Encounters Date Type Specialty Care Team Description 12/17/2018 Travel 12/16/2018 - [facility] Cardiology Jegapragasan, Pyelonephritis 12/19/2018 Encounter MD Lisa (Primary Dx) Nicky Alexander MD 12/09/2018 Orders Only General Internal Medicine 12/08/2018 Anesthesia Event Beyer Anhld Enriquez 12/08/2018 Surgery Cameron Jean, CYSTOSCOPY,INSERTION MD URETERAL STENTS 11/29/2018 - [facility] Cardiology Luis Starr Severe sepsis (HCC); 12/10/2018 Encounter MD William Emphysematous pyelonephritis of right kidney; Atif, Insulin dependent diabetes mellitus (HCC); Gab Pyelonephritis due to Escherichia coli MD Reanna Dunne Heather Renee, MD Vaughan, Elizabeth Mary, MD 11/29/2018 Telephone Critical Care Luis Starr Fever Medicine MD William after 12/20/2017 Family History Medical History Relation Name Comments [...] Vital Sign Reading Time Taken Blood Pressure 170/89 12/19/2018 11:00 AM CDT Pulse 84 12/19/2018 11:00 AM CDT Temperature 36.2 C (97.1 F) 12/19/2018 11:00 AM CDT Respiratory Rate 17 12/19/2018 11:00 AM CDT Oxygen Saturation 94% 12/19/2018 11:00 AM CDT Inhaled Oxygen Concentration - - Weight 136.1 kg (300 lb) 12/16/2018 11:00 PM CDT Height 175.3 cm (5' 9") 12/16/2018 11:00 PM CDT Body Mass Index 44.3 12/16/2018 11:00 PM CDT Plan of Treatment Not on file Implants Implanted Type Area Telegraph Repeater Technician Device Shelf Model / Identifier Expiration Serial / Date Lot Stent Uret Cntour Inj [id number] - [id number] IMPLANTS Right: [place] 12/15/2019 [id number] / Implanted: Qty: 1 on 12/08/2018 by Cameron Jean MD [employer] SCI:UROLOGY/ GYNE / COLOGY [id number] Procedures Procedure Name Priority Date/Time Associated Comments Diagnosis POCT-GLUCOSE METER Routine 12/19/2018 10:34 Results for this AM CDT procedure are in the results section. POCT-GLUCOSE METER Routine 12/19/2018 7:05 Results for this AM CDT procedure are in the results section. POCT-GLUCOSE METER Routine 12/18/2018 9:32 Results for this PM CDT procedure are in the results section. POCT-GLUCOSE METER Routine 12/18/2018 6:12 Results for this PM CDT procedure are in the results section. CT ABDOMEN/PELVIS WITH STAT 12/18/2018 5:17 Results for this IV CONTRAST PM CDT procedure are in the results section. SCREEN, URINE STAT 12/18/2018 1:14 Results for this PM CDT procedure are in the results section. POCT-GLUCOSE METER Routine 12/18/2018 11:10 Results for this AM CDT procedure are in the results section. POCT-GLUCOSE METER Routine 12/18/2018 7:44 Results for this AM CDT procedure are in the results section. BASIC METABOLIC PANEL Routine 12/18/2018 4:03 Results for this (7) AM CDT procedure are in the results section. POCT-GLUCOSE METER Routine 12/17/2018 9:12 Results for this AM CDT procedure are in the results section. CBC W/PLT COUNT & AUTO Routine 12/17/2018 2:02 Results for this DIFFERENTIAL AM CDT procedure are in the results section. URINALYSIS W/ REFLEX Routine 12/17/2018 2:02 Results for this URINE CULTURE AM CDT procedure are in the results section. PROTHROMBIN TIME/INR Routine 12/17/2018 2:02 Results for this AM CDT procedure are in the results section. CBC W/PLT COUNT & AUTO Routine 12/17/2018 2:02 Results for this DIFFERENTIAL AM CDT procedure are in the results section. BASIC METABOLIC PANEL Routine 12/17/2018 2:02 Results for this (7) AM CDT procedure are in the results section. BLOOD CULTURE Routine 12/17/2018 2:02 Results for this IDENTIFICATION PANEL AM CDT procedure are in the results section. URINE CULTURE Routine 12/17/2018 2:02 AM CDT BLOOD CULTURE Routine 12/17/2018 2:02 AM CDT BLOOD CULTURE Routine 12/17/2018 2:02 AM CDT REPORT OF PROCEDURE - 12/14/2018 11:50 ENDOSCOPY SCAN AM CDT RHYTHM STRIP - SCAN 12/14/2018 11:50 AM CDT POCT-GLUCOSE METER Routine 12/10/2018 10:59 Results for this AM CDT procedure are in the results section. POCT-GLUCOSE METER Routine 12/10/2018 7:22 Results for this AM CDT procedure are in the results section. CBC W/PLT COUNT & AUTO Routine 12/10/2018 4:21 Results for this DIFFERENTIAL AM CDT procedure are in the results section. MAGNESIUM Routine 12/10/2018 4:21 Results for this AM CDT procedure are in the results section. BASIC METABOLIC PANEL Routine 12/10/2018 4:21 Results for this (7) AM CDT procedure are in the results section. CBC W/PLT COUNT & AUTO Routine 12/10/2018 4:21 Results for this DIFFERENTIAL AM CDT procedure are in the [...] 370 ms QTC Calculation(Bazett) 472 ms P [place] 51 degrees R [place] 49 degrees T [place] 80 degrees Normal sinus rhythm Normal ECG [...] procedure are in the results section. [place] NEW ACCOUNTS CLERK IN OR 30 [address] 12/08/2018 9:56 PM [...] METER Routine 11/29/2018 8:39 PM CDT after 12/20/2017 Results POC-Glucose meter (12/19/2018 10:34 AM CDT)Only the most recent of51 resultswithin the time period is included. POC-Glucose Meter 277 (H)Comment: TESTED AT 70 - 110 mg/dL [facility] [address] [facility] [id number] Specimen Blood Performing Organization Address City/State/Zipcode Phone Number [address] abdomen/pelvis with IV contrast (12/18/2018 5:17 PM CDT) Specimen Narrative Performed At FINAL REPORT [facility] ABDOMINAL AND PELVIS CT DATED 12/18/2018 COMPARISON: December 02, 2018 CLINICAL INFORMATION:Abd pain, fever, abscess suspected TECHNIQUE:Axial images of the abdomen and pelvis were obtained from diaphragm to the pubic symphysis with GI and intravenous contrast. This exam was performed according to our departmental dose-optimization program, which includes automated exposure control, adjustment of the mA and/or kV according to patient size and/or use of interactive reconstruction technique. COMMENT: Liver and spleen are normal in size without focal abnormality.Gallbladder is contracted. No gallstone or biliary dilatation is noted. Pancreas and adrenals are unremarkable. Both kidneys are normal in size and functioning. A 3.4 x 4.3 cm complex cystic lesion is seen in the midpole right kidney with a few air bubbles present suspicious for abscess, calyceal diverticulum, or complex renal cyst. A complex collection is seen within the right Gerota's fascia. The collection measures approximately 2.9 x 5.2 x 15.4 cm. The collection contains mixed fluid, soft tissue, and air. A double-J ureteral stent is seen on the right. No hydronephrosis or hydroureter is seen. The small and large bowel are unremarkable. Appendix is not completely visualized. The visualized appendix is normal in caliber. Uterus and ovaries are unremarkable. No mass, adenopathy or ascites is present. IMPRESSION: IMPRESSION: Cystic lesion in the midpole right kidney communicating with a large complex collection within the right Gerota's fascia continuing air, fluid, and soft tissue. Signed: Mónica Moya MD Report Verified Date/Time:12/18/2018 18:17:11 Reading Location: [facility] C013Y CT Body Reading Room Procedure Note Interface, External Ris In - 12/18/2018 6:19 PM CDT FINAL REPORT ABDOMINAL AND PELVIS CT DATED 12/18/2018 COMPARISON: December 02, 2018 CLINICAL INFORMATION: Abd pain, fever, abscess suspected TECHNIQUE: Axial images of the abdomen and pelvis were obtained from diaphragm to the pubic symphysis with GI and intravenous contrast. This exam was performed according to our departmental dose-optimization program, which includes automated exposure control, adjustment of the mA and/or kV according to patient size and/or use of interactive reconstruction technique. COMMENT: Liver and spleen are normal in size without focal abnormality. Gallbladder is contracted. No gallstone or biliary dilatation is noted. Pancreas and adrenals are unremarkable. Both kidneys are normal in size and functioning. A 3.4 x 4.3 cm complex cystic lesion is seen in the midpole right kidney with a few air bubbles present suspicious for abscess, calyceal diverticulum, or complex renal cyst. A complex collection is seen within the right Gerota's fascia. The collection measures approximately 2.9 x 5.2 x 15.4 cm. The collection contains mixed fluid, soft tissue, and air. A double-J ureteral stent is seen on the right. No hydronephrosis or hydroureter is seen. The small and large bowel are unremarkable. Appendix is not completely visualized. The visualized appendix is normal in caliber. Uterus and ovaries are unremarkable. No mass, adenopathy or ascites is present. IMPRESSION: IMPRESSION: Cystic lesion in the midpole right kidney communicating with a large complex collection within the right Gerota's fascia continuing air, fluid, and soft tissue. Signed: Mónica Moya MD Report Verified Date/Time: 12/18/2018 18:17:11 Reading Location: [facility] B1 C[address]Y [address] Body Reading Room Performing Organization Address City/State/Zipcode Phone Number GE RIS Screen, urine (12/18/2018 1:14 PM CDT)Only the most recent of3 resultswithin the time period is included. Preg Test, Ur Negative [facility] Specimen Urine Performing Organization Address [facility] Phone Number [address] [address] CENTER Basic metabolic panel (12/18/2018 4:03 AM CDT)Only the most recent of15 resultswithin the time period is included. Sodium 137 136 - 145 meq/L [facility] Potassium 3.4 (L)Comment: Specimen 3.5 - 5.1 meq/L [facility] hemolyzed [facility] Chloride 104 98 - 107 meq/L [facility] CO2 24 22 - 29 meq/L [facility] BUN 12 7 - 21 mg/dL [facility] Creatinine 0.71Comment: Specimen 0.57 - 1.25 mg/dL [facility] Glucose 194 (H) 70 - 105 mg/dL [facility] Calcium 8.0 (L) 8.4 - 10.2 mg/dL [facility] EGFR 87Comment: ESTIMATED GFR IS mL/min/1.73 sq m [facility] NOT ACCURATE CREATININE [facility] CENTER CLEARANCE IN PREDICTING GLOMERULAR FILTRATION RATE. ESTIMATED GFR IS NOT APPLICABLE FOR DIALYSIS PATIENTS. Specimen Blood Performing Organization Address [facility] Phone Number [address] [address] [place] Blood Culture Panel(BioFire) (12/17/2018 2:02 AM CDT) LISTERIA MONOCYTOGENES Not detected Not detected [facility] STAPHYLOCOCCUS Detected (A) Not detected [facility] Comment: [facility] Coagulase negative Staph species (CoNS)- methicillin resistant CENTER First-line therapy: Vancomycin MecA DETECTED Possible contamination. The likelihood of pathogenicity is increased if the organism is observed in multiple blood cultures obtained from separate venipunctures. Reference Range: Not Detected STAPHYLOCOCCUS AUREUS Not detected Not detected [facility] Streptococcus Not detected Not detected [facility] STREPTOCOCCUS AGALACTIAE Not detected Not detected [facility] (GROUP B) [facility] STREPTOCOCCUS PNEUMONIAE Not detected Not detected [facility] Streptococcus pyogenes (Group Not detected Not detected [facility] ACINETOBACTER BAUMANNII Not detected Not detected [facility] HAEMOPHILUS INFLUENZAE Not detected Not detected [facility] NEISSERIA MENINGITIDIS Not detected Not detected [facility] ENTEROBACTERIACEAE Not detected Not detected [facility] ENTEROBACTER CLOACOE COMPLEX Not detected Not detected [facility] KLEBSIELLA OXYTOCA Not detected Not detected [facility] KLEBSIELLA PNEUMONIAE Not detected Not detected [facility] PROTEUS Not detected Not detected [facility] SERRATIA MARCESCENS Not detected Not detected [facility] STEVE ALBICANS Not detected Not detected [facility] STEVE GLABRATA Not detected Not detected [facility] STEVE KRUSEI Not detected Not detected [facility] STEVE PARAPSILOSIS Not detected Not detected [facility] STEVE TROPICALIS Not detected Not detected [facility] ESCHERICHIA COLI Not detected Not detected [facility] METHICILLIN-RESISTANCE GENE Detected (A) Not detected [facility] VANCOMYCIN-RESISTANCE GENE Not detected [facility] CARBAPENEM-RESISTANCE GENE Not detected [facility] ENTEROCOCCUS Not detected Not detected [facility] PSEUDOMONAS AERUGINOSA Not detected Not detected [facility] Specimen Blood Narrative Performed At Other bacteria and resistance markers not [facility] targeted by this PCR panel cannot be excluded; therefore clinical correlation and follow up of serology, culture results, and other molecular studies is required. The results are not intended to be used as the sole means for clinical diagnosis or patient management decisions. This sample was tested at the [facility] Molecular Diagnostics Laboratory using the [employer] Blood Culture ID Panel. It is FDA cleared and has been verified and approved by the [facility] Molecular Diagnostics Laboratory for clinical use. This laboratory is CLIA-certified and [employer] (CAP)-accredited to perform high complexity testing. Performing Organization Address City/State/Zipcode Phone Number [address] [address] CENTER Urinalysis w/Microscopic + Reflex to Culture (12/17/2018 2:02 AM CDT)Only the most recent of2 resultswithin the time period is included. Color, UA Yellow [facility] Clarity, UA Cloudy [facility] Specific Nipomo, UA 1.030 1.001 - 1.035 [facility] pH, UA 5.5 5.0 - 8.0 [facility] Protein, UA 300 mg/dL (A) Negative [facility] Glucose, UA Negative Negative [facility] Ketones, UA Negative Negative [facility] Bilirubin, UA Negative Negative [facility] Blood, UA Large (A) Negative [facility] Nitrite, UA Negative Negative [facility] Leukocytes, UA Large (A) Negative [facility] Urobilinogen, UA 0.2 0.2 - 1.0 mg/dL [facility] RBC, UA 71 /HPF [facility] WBC, UA 2,063 /HPF [facility] Bacteria, UA Few [facility] Mucus Many [facility] Specimen Source [facility] Specimen Urine Performing Organization Address City/State/Zipcode Phone Number [facility] [address] [place] [address] [phone] CENTER CBC with platelet count + automated diff (12/17/2018 2:02 AM CDT)Only the most recent of14 resultswithin the time period is included. WBC 13.0 (H) 3.5 - 10.5 K/L [facility] RBC 4.00 3.93 - 5.22 M/L [facility] Hemoglobin 11.4 11.2 - 15.7 GM/DL [facility] Hematocrit 34.8 34.1 - 44.9 % [facility] MCV 87.0 79.4 - 94.8 fL [facility] MCH 28.5 25.6 - 32.2 pg [facility] MCHC 32.8 32.2 - 35.5 GM/DL [facility] RDW 13.6 11.7 - 14.4 % [facility] Platelets 336 150 - 450 K/CU MM [facility] MPV 9.6 9.4 - 12.3 fL [facility] nRBC 0 0 - 0 /100 WBC [facility] % Neutros 72 % [facility] % Lymphs 15 % [facility] % Monos 9 % [facility] % Eos 3 % [facility] % Baso 1 % [facility] # Neutros 9.37 (H) 1.56 - 6.13 K/L [facility] # Lymphs 1.90 1.18 - 3.74 K/L [facility] # Monos 1.20 (H) 0.24 - 0.36 K/L [facility] # Eos 0.33 0.04 - 0.36 K/L [facility] # Baso 0.07 0.01 - 0.08 K/L [facility] Immature Granulocytes-Relative 1 0 - 1 % [facility] Specimen Blood Performing Organization Address City/[facility]/Zipcode Phone Number [facility] [address] [place] [phone] [place] Prothrombin time/INR (12/17/2018 2:02 AM CDT)Only the most recent of2 resultswithin the time period is included. Protime 14.1 11.9 - 14.2 seconds [facility] INR 1.2 <=5.9 [facility] Specimen Blood Narrative Performed At Effective 11/04/2018: PT Reference Range [facility] Change New: 11.9-14.2Previous: 11.7-14.7 RECOMMENDED COUMADIN/WARFARIN INR THERAPY RANGES STANDARD DOSE: 2.0-3.0Includes: PROPHYLAXIS for venous thrombosis, systemic embolization; TREATMENT for venous thrombosis and/or pulmonary embolus. HIGH RISK: Target INR is 2.5-3.5 for patients wiht mechanical heart valves. Performing Organization Address City/State/Zipcode Phone Number [facility] [address] [place] [address] [place] EKG-SCANNED (12/14/2018 11:50 AM CDT) Narrative Performed At RHYTHM STRIP - SCAN (12/14/2018 11:50 AM CDT) Narrative Performed At Magnesium (12/10/2018 4:21 AM CDT)Only the most recent of12 resultswithin the time period is included. Magnesium 1.7 1.6 - 2.6 mg/dL [facility] Specimen Blood Performing Organization Address [facility] Phone Number [facility] [address] [place] [address] [phone] [place] ECG 12 lead (12/09/2018 5:15 PM CDT) Specimen Narrative Performed At Ventricular Rate 98 BPM GE MUSE Atrial Rate 98 BPM P-R Interval 168 ms QRS Duration 88 ms Q-T Interval 370 ms QTC Calculation(Bazett) 472 ms P [place] 51 degrees R [place] 49 degrees T [place] 80 degrees Normal sinus rhythm Cannot exclude old inferior infarct Nonspecific T wave abnormality Prolonged QT No previous ECGs available Confirmed by MD TONEY YOCHAI ([id number]) on 12/10/2018 8:27:25 PM Procedure Note Interface, External Ris In - 12/10/2018 8:27 PM CDT Ventricular Rate 98 BPM Atrial Rate 98 BPM P-R Interval 168 ms QRS Duration 88 ms Q-T Interval 370 ms QTC Calculation(Bazett) 472 ms P [place] 51 degrees R [place] 49 degrees T [place] 80 degrees Normal sinus rhythm Cannot exclude old inferior infarct Nonspecific T wave abnormality Prolonged QT No previous ECGs available Confirmed by MD TONEY YOCHAI ([id number]) on 12/10/2018 8:27:25 PM Performing Organization Address [facility] Phone Number GE MUSE Urine culture (12/09/2018 2:34 PM CDT)Only the most recent of2 resultswithin the time period is included. Result No growth [facility] Gram Stain Result 1+ WBCs [facility] Gram Stain Result <1+ gram positive rods [facility] Specimen Urine Performing Organization Address [facility] Phone Number [facility] [address] [place] [phone] [place] Blood Culture - Routine (Left Venipuncture) (12/09/2018 2:31 PM CDT)Only the most recent of4 resultswithin the time period is included. Result No growth in 5 days [facility] Specimen Blood Performing Organization Address [facility]/Zipcode Phone Number [facility] [address] [place] [address] [place] Manual Differential (12/09/2018 5:16 AM CDT)Only the most recent of2 resultswithin the time period is included. % Neutros 89 % [facility] % Lymphs 8 % [facility] % Monos 2 % [facility] % Eos 1 % [facility] # Neutros 21.45 (H) 1.56 - 6.13 K/ul [facility] # Lymphs 1.93 1.18 - 3.74 K/ul [facility] # Monos 0.48 (H) 0.24 - 0.36 K/uL [facility] # Eos 0.24 0.04 - 0.36 K/uL [facility] Total Counted 100 [facility] WBC Morphology Normal [facility] Platelet Morphology Normal [facility] Polychromasia 1+ few [facility] Artifact Present [facility] Platelet Conc Increased [facility] Specimen Blood Narrative Performed At Received comment: [facility] User comments: Slide comments: Performing Organization Address City/[facility]/Zipcode Phone Number [facility] [address] [place] [address] [place] Anaerobic culture (12/08/2018 10:13 PM CDT) Result No anaerobes isolated [facility] Specimen Body Fluid Performing Organization Address [facility]/Zipcode Phone Number [facility] [address] [place] [address] [phone] [place] Surgically obtained culture + gram stain (12/08/2018 10:13 PM CDT) Result No growth [facility] Gram Stain Result <1+ White blood cells seen [facility] Gram Stain Result No organisms seen [facility] Specimen Wound Performing Organization Address City/[facility]/Zipcode Phone Number [facility] [address] [place] [address] [phone] [facility] electrical and radio aircraft mechanic in or 30 minute increments (12/08/2018 9:56 PM CDT) Specimen Narrative Performed At PROCEDURE PERFORMED IN O.R. - PLEASE REFER TO THE INTRAOPERATIVE [email or web address] REPORT. Procedure Note Interface, External Ris In - 12/14/2018 1:45 PM CDT PROCEDURE PERFORMED IN O.R. - PLEASE REFER TO THE INTRAOPERATIVE REPORT. Performing Organization Address City/[facility] Phone Number GE Compound Time US renal complete (12/08/2018 9:06 AM CDT) Specimen Narrative Performed At FINAL REPORT [email or web address] Renal ultrasound dated 12/08/2018 Comment:Real-time transabdominal renal [...] MD Report Verified Date/Time:12/08/2018 09:54:36 Reading Location: [address] Radiology Reading Room Procedure Note Interface, [...] Report Verified Date/Time: 12/08/2018 09:54:36 Reading Location: [address] Radiology Reading Room Performing Organization Address City/State/[facility] Mex[facility]ode Phone Number [email or web address] Creatinine, body fluid (12/06/2018 11:48 AM CDT) Creat, Fluid 26.08 mg/dL [facility] Specimen Body Fluid Narrative Performed At Reference Range:No Normals [facility] Assay performance has not been validated for this type of specimen. Performing Organization Address City/State/[facility] Mexicocode Phone Number [place] [phone] [place] [address] CENTER IR Drainage Catheter Change (12/04/2018 2:00 PM CDT) Specimen Narrative Performed At FINAL REPORT [email or web address] Right perirenal drain examination Pertinent clinical information: [...] amorphous collection was visualized through the 8 Algerian drain. The catheter was exchanged over a guidewire. A 10 Algerian catheter was placed.. The catheter was manipulated with contrast monitoring. The patient tolerated the procedure well.The patient left the department in the same condition. Impression: Successful, uncomplicated upsizing of a right perinephric drain. Signed: Martita Vo MD Report Verified Date/Time:12/04/2018 15:35:20 Reading Location: [place] [address] Angio Body Reading Room Procedure Note Interface, [...] amorphous collection was visualized through the 8 Algerian drain. The catheter was exchanged over a guidewire. A 10 Algerian catheter was placed.. The catheter was manipulated with contrast monitoring. The patient tolerated the procedure well. The patient left the department in the same condition. Impression: Successful, uncomplicated upsizing of a right perinephric drain. Signed: Martita Vo MD Report Verified Date/Time: 12/04/2018 15:35:20 Reading Location: [place] [address] Angio Body Reading Room Performing Organization Address City/State/Zipcode Phone Number [email or web address] CT abdomen/pelvis without iv contrast (12/02/2018 3:39 PM CDT) Specimen Narrative Performed At FINAL REPORT [email or web address] ABDOMINAL AND PELVIS CT DATED 12/02/2018 COMPARISON: [...] MD Report Verified Date/Time:12/02/2018 16:07:37 Reading Location: [facility] C013Y CT Body Reading Room Procedure Note [...] Report Verified Date/Time: 12/02/2018 16:07:37 Reading Location: [facility] B1 C013Y CT Body Reading Room Performing Organization Address City/[facility] Mex[facility]ode Phone Number [facility] Iron, TIBC, % sat. (without ferritin) (12/02/2018 4:42 AM CDT) Iron 23.0 (L) 40.0 - 160.0 ug/dL [facility] TIBC 189 (L) 250 - 450 ug/dL [facility] Iron % Saturation 12 (L) 20 - 55 % [facility] Specimen Blood Performing Organization Address City/[facility]/Zipcode Phone Number [facility] [address] [place] [address] CENTER Vitamin B12 (12/02/2018 4:42 AM CDT) Vitamin B12 1,104 (H) 213 - 816 pg/mL [facility] Specimen Blood Performing Organization Address City/State/Zipcode Phone Number [facility] [address] [place] [address] [place] TRANSFUSION SERVICE REPORT - SCAN (12/01/2018 5:51 PM CDT)Only the most recent of2 resultswithin the time period is included. Narrative Performed At Vancomycin level, trough (12/01/2018 4:28 AM CDT) Vancomycin Tr 16.2 10.0 - 20.0 ug/mL [facility] Specimen Blood Performing Organization Address City/[facility] Mex[facility]ode Phone Number [place] [phone] [place] [address] [phone] [place] XR chest 1 view portable / bedside (11/30/2018 7:31 PM CDT) Specimen Narrative Performed At FINAL REPORT GE RIS INDICATION: Hypoxia TECHNIQUE: Chest radiograph, single view, portable technique. FINDINGS / IMPRESSION: Heart shadow is enlarged and there is central pulmonary venous congestion. No overt pulmonary edema and no pleural effusion demonstrated. Right hemidiaphragm mildly elevated. No pneumothorax. Signed: Edson Byrne MD Report Verified Date/Time:11/30/2018 21:22:48 Reading Location: [facility] C013 Consult Reading Room Procedure Note Interface, External [...] Report Verified Date/Time: 11/30/2018 21:22:48 Reading Location: [facility] C013 Consult Reading Room Performing Organization Address [facility]oid Phone Number GE RIS Lactic acid, venous, Daily (11/30/2018 4:46 AM CDT)Only the most recent of3 resultswithin the time period is included. Lactate, Venous 1.0 0.5 - 2.2 mmol/L [facility] Specimen Blood Performing Organization Address [facility]oid Phone Number [address] [address] [phone] CENTER Body fluid culture + gram stain (11/30/2018 12:21 AM CDT) Result 1+ Escherichia coli (A) [facility] Gram Stain Result 2+ White blood cells seen [facility] Gram Stain Result No organisms seen [facility] Specimen Body Fluid Organism Antibiotic Method Susceptibility [...] + Sulfamethoxazole >=320: Resistant Performing Organization Address [facility]oid Phone Number [address] [address] [phone] [place] Body fluid cell count with differential (11/30/2018 12:21 AM CDT) Appearance Hazy (A) Clear [facility] Color Brown (A) Colorless, Straw [facility] RBCs 144,000 (H) <=1 /cu mm [facility] Adjusted WBC Count 87,753 (H) <=5 /cu mm [facility] Lining Cells 0 <=1 /cu mm [facility] % Segs 100 % [facility] % Lymphs 0 % [facility] % Monos 0 % [facility] % Eos 0 % [facility] % Baso 0 % [facility] Container Body Fluid EDTA Tube [facility] Specimen Body Fluid Performing Organization Address City/State/Zipcode Phone Number [facility] [address] [place] [address] [phone] drainage abdominal (11/30/2018 12:11 AM CDT) Specimen Narrative Performed At FINAL REPORT [email or web address] CT guided drainage catheter placement, 11/29/2018. Clinical History: Emphysematous pyelonephritis. Modality: CT. Suction Worker:Ember. Sausage Mixer:None. Conscious sedation: None. Estimated Blood Loss:Less than [...] soft tissue tract was created with 8 Algerian dilator. After the tract was dilated, an 8.5 Algerian all-purpose drainage catheter was placed into the [...] MD Report Verified Date/Time:12/01/2018 17:21:29 Reading Location: [place] [address] Angio Body Reading Room Procedure Note Interface, External Ris In - 12/01/2018 5:23 PM CDT FINAL REPORT CT guided drainage catheter placement, 11/29/2018. Clinical History: Emphysematous pyelonephritis. Modality: CT. Suction Worker: Ember. Sausage Mixer: None. Conscious sedation: None. Estimated Blood Loss: [...] soft tissue tract was created with 8 Algerian dilator. After the tract was dilated, an 8.5 Algerian all-purpose drainage catheter was placed into the [...] Report Verified Date/Time: 12/01/2018 17:21:29 Reading Location: [place] [address] Angio Body Reading Room Performing Organization Address City/[facility] Mex[facility]ocode Phone Number [facility], manual (11/29/2018 9:58 PM CDT)Only the most recent of2 resultswithin the time period is included. ABO Grouping A [facility] Rh Factor POS [facility] Specimen Blood Performing Organization Address [facility] Mex[facility]ode Phone Number [address] [address] Procalcitonin (11/29/2018 9:09 PM CDT) Procalcitonin 0.28 (H) <0.05 ng/mL [facility] Specimen Blood Narrative Performed At SEPSIS RISK (ng/mL) [facility] Low:0.05-0.50 Intermediate: 0.51-2.00 High: >=2.01 Performing Organization Address [facility] Mex[facility]ode Phone Number [address] [address] CENTER Type and screen, automated (11/29/2018 9:09 PM CDT) Ab Scrn NEGATIVEComment: echo 1 [facility] Specimen Blood Performing Organization Address City/[facility]/Zipcode Phone Number [address] [address] [phone] TSH/Free T4 If Indicated (11/29/2018 9:09 PM CDT) TSH 10.96 (H) 0.35 - 4.94 uIU/mL [facility] Specimen Blood Performing Organization Address City/[facility]ode Phone Number [address] [address] CENTER aPTT (11/29/2018 9:09 PM CDT) PTT 29.3 22.5 - 36.0 seconds [facility] Specimen Blood Performing Organization Address [facility]oid Phone Number [address] [address] [place] T4, free (11/29/2018 9:09 PM CDT) Free T4 0.77 0.70 - 1.48 ng/dL [facility] Specimen Blood Performing Organization Address [facility]oid Phone Number [address] [address] CENTER Phosphorus (11/29/2018 9:09 PM CDT) Phosphorus 2.5 2.3 - 4.7 mg/dL [facility] Specimen Blood Performing Organization Address City/[facility] Mex[facility]ode Phone Number [address] [address] [phone] CENTER Hemoglobin A1c (11/29/2018 9:09 PM CDT) Hemoglobin A1C 9.8 (H) 4.3 - 6.1 % [facility] Specimen Blood Performing Organization Address [facility]/Zipcode Phone Number [address] [address] CENTER after 12/20/2017 Advance Directives For more information, please contact:[place] [address] [address] [place], [place] [phone] Code Status Date Activated Date Inactivated Comments Full Code 12/17/2018 12:46 AM 12/19/2018 2:27 PM This code status was determined by: Patient Full Code 11/29/2018 8:30 PM 12/10/2018 6:13 PM This code status was determined by: Patient
--- OUTSIDE RECORDS SUMMARY | 2018-12-21 09:05 | XMS REPORT ---
:1970 Author Organization [facility] Address [address] [place] [address] Care Team Providers Name Role Phone SHARMAINENICKSANYAENE DAVID Unavailable Unavailable CLAUDE GALLARDO Unavailable Unavailable Problems This patient has no known problems. Allergies, Adverse Reactions, Alerts This patient has no known allergies or adverse reactions. Medications This patient has no known medications. Results Test Description Test Time Test Comments Text Results Atomic Results Result Comments POCT-GLUCOSE METER 2018-12-19 10:49:00 Test Item Value Reference Range Comments POC-GLUCOSE METER (BEAKER) (test 277 mg/dL 70-110 TESTED AT [address] rtyc=8291) [facility] [address] POCT-GLUCOSE [id number] 07:34:00 Test Item Value Reference Range Comments POC-GLUCOSE METER (BEAKER) 201 mg/dL 70-110 TESTED AT [address] (test ugvg=4358) [place] [id number] POCT-GLUCOSE [id number] 22:02:00 Test Item Value Reference Range Comments POC-GLUCOSE METER (BEAKER) 198 mg/dL 70-110 TESTED AT [address] (test hzwc=6995) [place] [id number] POCT-GLUCOSE [id number] 18:19:00 Test Item Value Reference Range Comments POC-GLUCOSE METER (BEAKER) 181 mg/dL 70-110 TESTED AT [address] (test btcs=3569) [facility] [address] CT, [id number] 18:17:00FINAL REPORT ABDOMINAL AND PELVIS CT DATED 12/18/2018 [...] is seen within the right Gerota's fascia. Thecollection measures approximately 2.9 x 5.2 x 15.4 cm. The collection contains mixed fluid, soft tissue, and air. A double-J ureteral stent is seen on the right. No hydronephrosis or hydroureter is seen. The small and large bowel are unremarkable. Appendix is not completely visualized. The visualized appendix is normal in caliber. Uterus and ovaries are unremarkable. No mass, adenopathy or ascites ispresent. IMPRESSION: IMPRESSION: Cystic lesion in the midpole right kidney communicating with a large complex collection within the right Gerota's fascia continuing air, fluid, and soft tissue. Signed: Mónica Moya MDReport Verified Date/Time: 12/18/2018 18:17:11 Reading Location: [facility] C013Y CT Body Reading Room 06: 17 PMPREGNANCY SCREEN, [id number] 13:35:00 Test Item Value Reference Range Comments TEST URINE (BEAKER) (test afau=414) Negative POCT-GLUCOSE [id number] 11:22:00 Test Item Value Reference Range Comments POC-GLUCOSE METER (BEAKER) 229 mg/dL 70-110 TESTED AT [place] [id number] [facility] (test dbge=5624) [facility] [address] POCT-GLUCOSE [id number] 08:26:00 Test Item Value Reference Range Comments POC-GLUCOSE METER (BEAKER) 197 mg/dL 70-110 TESTED AT [facility] [address] [facility] (test doop=1590) [facility] [address] BASIC METABOLIC [id number] 04:27:00 Test Item Value Reference Range Comments SODIUM (BEAKER) (test 137 meq/L 136-145 ckok=652) POTASSIUM (BEAKER) (test 3.4 meq/L 3.5-5.1 Specimen slightly xuhf=170) hemolyzed CHLORIDE (BEAKER) (test 104 meq/L 98-107 mlev=543) CO2 (BEAKER) (test 24 meq/L 22-29 rnjx=496) BLOOD UREA NITROGEN 12 mg/dL 7-21 (BEAKER) (test zwfw=359) CREATININE (BEAKER) (test 0.71 mg/dL 0.57-1.25 Specimen slightly zsjx=448) hemolyzed GLUCOSE RANDOM (BEAKER) 194 mg/dL 70-105 (test looo=890) CALCIUM (BEAKER) (test 8.0 mg/dL 8.4-10.2 wbjl=054) EGFR (BEAKER) (test 87 mL/min/1.73 sq m ESTIMATED GFR IS NOT vmfn=8454) ACCURATE CREATININE CLEARANCE IN PREDICTING GLOMERULAR FILTRATION RATE. ESTIMATED GFR IS NOT APPLICABLE FOR DIALYSIS PATIENTS. BLOOD CULTURE IDENTIFICATION [id number] 02:19:00 Test Item Value Reference Range Comments LISTERIA MONOCYTOGENES (test Not detected Not detected udll=[id number]) STAPHYLOCOCCUS (test Detected Not detected Coagulase negative Staph cjna=[id number]) species (CoNS)- methicillin resistantFirst-line therapy: Vancomycin MecA DETECTED Possible contamination. The likelihood of pathogenicity is increased if the organism is observed in multiple blood cultures obtained from separate venipunctures. Reference Range: Not Detected STAPHYLOCOCCUS AUREUS (test Not detected Not detected uyiu=[id number]) STREPTOCOCCUS (test Not detected Not detected owls=1075749) STREPTOCOCCUS AGALACTIAE (GROUP Not detected Not detected B) (test ptuf=8715040) STREPTOCOCCUS PNEUMONIAE (test Not detected Not detected rxzg=6435086) STREPTOCOCCUS PYOGENES (GROUP Not detected Not detected A) (test rchj=4326878) ACINETOBACTER BAUMANNII (test Not detected Not detected hkci=8689302) HAEMOPHILUS INFLUENZAE (test Not detected Not detected iiik=0210645) NEISSERIA MENINGITIDIS (test Not detected Not detected jcfq=5198539) ENTEROBACTERIACEAE (test Not detected Not detected opfu=3179296) ENTEROBACTER CLOACOE COMPLEX Not detected Not detected (test kfnu=6793412) KLEBSIELLA OXYTOCA (test Not detected Not detected vamh=7051862) KLEBSIELLA PNEUMONIAE (test Not detected Not detected rqxw=1041) PROTEUS (test imqp=6541918) Not detected Not detected SERRATIA MARCESCENS (test Not detected Not detected wdza=1314945) STEVE ALBICANS (test Not detected Not detected vbvl=9820210) STEVE GLABRATA (test Not detected Not detected cpaj=2183457) STEVE KRUSEI (test Not detected Not detected cmja=3633104) STEVE PARAPSILOSIS (test Not detected Not detected gylv=1927525) STEVE TROPICALIS (test Not detected Not detected slys=8258248) ESCHERICHIA COLI (test Not detected Not detected wtdd=9010799) METHICILLIN-RESISTANCE GENE Detected Not detected (test terf=5019127) VANCOMYCIN-RESISTANCE GENE Not detected (test yssg=3080548) CARBAPENEM-RESISTANCE GENE Not detected (test xozv=1391232) ENTEROCOCCUS-BEAKER (test Not detected Not detected dszs=8074315) PSEUDOMONAS AERUGINOSA-BEAKER Not detected Not detected (test asve=9364748) Other bacteria and resistance markers not targeted by this PCR panel cannot be excluded; therefore clinical correlation and follow up of serology, culture results, and other molecular studies is required. The results are not intended to be used as the sole means for clinical diagnosis or patient management decisions. This sample was tested at the [facility] Molecular Diagnostics Laboratory using the [employer] Blood Culture ID Panel. It is FDA cleared and has been verified and approved by the [facility]ostics [facility] for clinical use. This laboratory is CLIA-certified and College ofAmerican Pathologists (CAP)-accredited to perform high complexity testing.POCT-GLUCOSE [id number] 09:25:00 Test Item Value Reference Range Comments POC-GLUCOSE METER (BEAKER) 187 mg/dL 70-110 TESTED AT [facility] [address] (test cyrp=1660) [facility] [address] BASIC METABOLIC [id number] 03:04:00 Test Item Value Reference Range Comments SODIUM (BEAKER) (test 132 meq/L 136-145 uyql=566) POTASSIUM (BEAKER) (test 4.1 meq/L 3.5-5.1 Specimen moderately gggk=191) hemolyzed CHLORIDE (BEAKER) (test 99 meq/L 98-107 duwe=778) CO2 (BEAKER) (test 22 meq/L 22-29 zjgg=821) BLOOD UREA NITROGEN 20 mg/dL 7-21 (BEAKER) (test tqht=601) CREATININE (BEAKER) (test 1.06 mg/dL 0.57-1.25 Specimen moderately vufc=185) hemolyzed GLUCOSE RANDOM (BEAKER) 167 mg/dL 70-105 (test acqn=446) CALCIUM (BEAKER) (test 8.8 mg/dL 8.4-10.2 aytk=911) EGFR (BEAKER) (test 55 mL/min/1.73 sq m ESTIMATED GFR IS NOT hddt=9023) ACCURATE CREATININE CLEARANCE IN PREDICTING GLOMERULAR FILTRATION RATE. ESTIMATED GFR IS NOT APPLICABLE FOR DIALYSIS PATIENTS. PROTHROMBIN [id number] 02:49:00 Test Item Value Reference Range Comments PROTIME (BEAKER) (test oiku=392) 14.1 seconds 11.9-14.2 INR (BEAKER) (test yntj=874) 1.2 <=5.9 Effective 11/04/2018: PT Reference Range ChangeNew: 11.9-14.2 Previous: 11.7- 14.7RECOMMENDED COUMADIN/WARFARIN INR THERAPY RANGESSTANDARD DOSE: 2.0-3.0 Includes: PROPHYLAXIS for venous thrombosis, systemic embolization; TREATMENT for venous thrombosis and/or pulmonary embolus.HIGH RISK: Target INR is2.5-3.5 for patients wiht mechanical heart valves.CBC W/PLT COUNT & AUTO [id number] 02:46:00 Test Item Value Reference Range Comments WHITE BLOOD CELL COUNT (BEAKER) (test wjvq=650) 13.0 K/ L 3.5-10.5 RED BLOOD CELL COUNT (BEAKER) (test rhjq=710) 4.00 M/ L 3.93-5.22 HEMOGLOBIN (BEAKER) (test bulz=765) 11.4 GM/DL 11.2-15.7 HEMATOCRIT (BEAKER) (test twji=154) 34.8 % 34.1-44.9 MEAN CORPUSCULAR VOLUME (BEAKER) (test ejen=587) 87.0 fL 79.4-94.8 MEAN CORPUSCULAR HEMOGLOBIN (BEAKER) (test 28.5 pg 25.6-32.2 whxq=520) MEAN CORPUSCULAR HEMOGLOBIN CONC (BEAKER) (test 32.8 GM/DL 32.2-35.5 iyzd=854) RED CELL DISTRIBUTION WIDTH (BEAKER) (test 13.6 % 11.7-14.4 qjtc=146) PLATELET COUNT (BEAKER) (test vfel=895) 336 K/CU MM 150-450 MEAN PLATELET VOLUME (BEAKER) (test skdd=595) 9.6 fL 9.4-12.3 NUCLEATED RED BLOOD CELLS (BEAKER) (test 0 /100 WBC 0-0 xlav=101) NEUTROPHILS RELATIVE PERCENT (BEAKER) (test 72 % lsjl=819) LYMPHOCYTES RELATIVE PERCENT (BEAKER) (test 15 % ctxg=829) MONOCYTES RELATIVE PERCENT (BEAKER) (test 9 % pksm=440) EOSINOPHILS RELATIVE PERCENT (BEAKER) (test 3 % fgmk=649) BASOPHILS RELATIVE PERCENT (BEAKER) (test 1 % pawa=553) NEUTROPHILS ABSOLUTE COUNT (BEAKER) (test 9.37 K/ L 1.56-6.13 blky=971) LYMPHOCYTES ABSOLUTE COUNT (BEAKER) (test 1.90 K/ L 1.18-3.74 kamq=692) MONOCYTES ABSOLUTE COUNT (BEAKER) (test 1.20 K/ L 0.24-0.36 bimx=141) EOSINOPHILS ABSOLUTE COUNT (BEAKER) (test 0.33 K/ L 0.04-0.36 xobz=358) BASOPHILS ABSOLUTE COUNT (BEAKER) (test 0.07 K/ L 0.01-0.08 ftui=115) IMMATURE GRANULOCYTES-RELATIVE PERCENT (BEAKER) 1 % 0-1 (test trxr=4057) URINALYSIS W/ REFLEX URINE [id number] 02:39:00 Test Item Value Reference Range Comments COLOR (BEAKER) (test rztl=673) Yellow CLARITY (BEAKER) (test nbys=318) Cloudy SPECIFIC GRAVITY UA (BEAKER) (test kiho=948) 1.030 1.001-1.035 PH UA (BEAKER) (test jpve=904) 5.5 5.0-8.0 PROTEIN UA (BEAKER) (test rdwd=410) 300 mg/dL Negative GLUCOSE UA (BEAKER) (test fyrl=158) Negative Negative KETONES UA (BEAKER) (test oreu=278) Negative Negative BILIRUBIN UA (BEAKER) (test ulhk=051) Negative Negative BLOOD UA (BEAKER) (test samf=306) Large Negative NITRITE UA (BEAKER) (test egix=632) Negative Negative LEUKOCYTE ESTERASE UA (BEAKER) (test pujk=363) Large Negative UROBILINOGEN UA (BEAKER) (test vvxt=860) 0.2 mg/dL 0.2-1.0 RBC UA (BEAKER) (test fedf=391) 71 /HPF WBC UA (BEAKER) (test xzpo=058) 2063 /HPF BACTERIA (BEAKER) (test okax=388) Few MUCUS (BEAKER) (test eqmj=1382) Many SOURCE(BEAKER) (test ebhz=0514) ANAEROBIC [id number] 04:12:00 Test Item Value Reference Range Comments CULTURE (BEAKER) (test jwrt=1805) No anaerobes isolated BLOOD [id number] 20:01:00 Test Item Value Reference Range Comments CULTURE (BEAKER) (test tker=0423) No growth in 5 days BLOOD [id number] 20:01:00 Test Item Value Reference Range Comments CULTURE (BEAKER) (test ejto=8180) 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 - PLEASE REFER TO THE INTRAOPERATIVE REPORT. URINE [id number] 15:59:00 Test Item Value Reference Range Comments CULTURE (BEAKER) (test lcyj=3114) No growth GRAM STAIN RESULT (BEAKER) (test 1+ WBCs fjve=1371) GRAM STAIN RESULT (BEAKER) (test <1+ gram positive rods hmwr=21798) SURGICALLY OBTAINED CULTURE + GRAM [id number] 15:35:00 Test Item Value Reference Range Comments CULTURE (BEAKER) (test tveu=2174) No growth GRAM STAIN RESULT (BEAKER) (test <1+ White blood cells seen zxre=3237) GRAM STAIN RESULT (BEAKER) (test No organisms seen paij=70697) POCT-GLUCOSE [id number] 11:23:00 Test Item Value Reference Range Comments POC-GLUCOSE METER (BEAKER) 249 mg/dL 70-110 TESTED AT [facility] [address] [facility] (test dwcx=6192) [facility] [address] POCT-GLUCOSE [id number] 07:31:00 Test Item Value Reference Range Comments POC-GLUCOSE METER (BEAKER) 192 mg/dL 70-110 TESTED AT [facility] [address] (test obww=2129) [facility] [address] [id number] 05:21:00 Test Item Value Reference Range Comments MAGNESIUM (BEAKER) (test ysty=025) 1.7 mg/dL 1.6-2.6 BASIC METABOLIC [id number] 05:21:00 Test Item Value Reference Range Comments SODIUM (BEAKER) (test 134 meq/L 136-145 kunk=040) POTASSIUM (BEAKER) (test 3.8 meq/L 3.5-5.1 ssnh=096) CHLORIDE (BEAKER) (test 100 meq/L 98-107 khwq=148) CO2 (BEAKER) (test 27 meq/L 22-29 zmih=394) BLOOD UREA NITROGEN 7 mg/dL 7-21 (BEAKER) (test dtal=870) CREATININE (BEAKER) (test 0.71 mg/dL 0.57-1.25 tsua=641) GLUCOSE RANDOM (BEAKER) 208 mg/dL 70-105 (test jpru=983) CALCIUM (BEAKER) (test 9.1 mg/dL 8.4-10.2 bldg=087) EGFR (BEAKER) (test 87 mL/min/1.73 sq m ESTIMATED GFR IS NOT wfta=0852) ACCURATE CREATININE CLEARANCE IN PREDICTING GLOMERULAR FILTRATION RATE. ESTIMATED GFR IS NOT APPLICABLE FOR DIALYSIS PATIENTS. CBC W/PLT COUNT & AUTO [id number] 05:11:00 Test Item Value Reference Range Comments WHITE BLOOD CELL COUNT (BEAKER) (test mwjh=878) 14.7 K/ L 3.5-10.5 RED BLOOD CELL COUNT (BEAKER) (test bxou=556) 4.13 M/ L 3.93-5.22 HEMOGLOBIN (BEAKER) (test vudl=813) 11.6 GM/DL 11.2-15.7 HEMATOCRIT (BEAKER) (test xsht=144) 36.8 % 34.1-44.9 MEAN CORPUSCULAR VOLUME (BEAKER) (test slsi=658) 89.1 fL 79.4-94.8 MEAN CORPUSCULAR HEMOGLOBIN (BEAKER) (test 28.1 pg 25.6-32.2 kvkq=056) MEAN CORPUSCULAR HEMOGLOBIN CONC (BEAKER) (test 31.5 GM/DL 32.2-35.5 poed=507) RED CELL DISTRIBUTION WIDTH (BEAKER) (test 14.3 % 11.7-14.4 clux=015) PLATELET COUNT (BEAKER) (test cnmd=054) 394 K/CU MM 150-450 MEAN PLATELET VOLUME (BEAKER) (test jyby=146) 8.9 fL 9.4-12.3 NUCLEATED RED BLOOD CELLS (BEAKER) (test 0 /100 WBC 0-0 lmtf=005) NEUTROPHILS RELATIVE PERCENT (BEAKER) (test 75 % belw=067) LYMPHOCYTES RELATIVE PERCENT (BEAKER) (test 15 % ktph=494) MONOCYTES RELATIVE PERCENT (BEAKER) (test 8 % eejp=336) EOSINOPHILS RELATIVE PERCENT (BEAKER) (test 1 % qalz=421) BASOPHILS RELATIVE PERCENT (BEAKER) (test 0 % tbsz=121) NEUTROPHILS ABSOLUTE COUNT (BEAKER) (test 10.95 K/ L 1.56-6.13 ntpe=922) LYMPHOCYTES ABSOLUTE COUNT (BEAKER) (test 2.21 K/ L 1.18-3.74 kzli=925) MONOCYTES ABSOLUTE COUNT (BEAKER) (test 1.20 K/ L 0.24-0.36 oqoj=803) EOSINOPHILS ABSOLUTE COUNT (BEAKER) (test 0.18 K/ L 0.04-0.36 ujfl=728) BASOPHILS ABSOLUTE COUNT (BEAKER) (test 0.05 K/ L 0.01-0.08 wqhl=286) IMMATURE GRANULOCYTES-RELATIVE PERCENT (BEAKER) 1 % 0-1 (test xlhz=9499) POCT-GLUCOSE [id number] 21:59:00 Test Item Value Reference Range Comments POC-GLUCOSE METER (BEAKER) 171 mg/dL 70-110 TESTED AT [address] (test pxfr=4706) [facility] [address] POCT-GLUCOSE [id number] 16:04:00 Test Item Value Reference Range Comments POC-GLUCOSE METER (BEAKER) 249 mg/dL 70-110 TESTED AT [address] (test fkft=6883) [facility] [address] CBC W/PLT COUNT & AUTO [id number] 14:58:00 Test Item Value Reference Range Comments WHITE BLOOD CELL COUNT (BEAKER) (test wdsx=937) 14.3 K/ L 3.5-10.5 RED BLOOD CELL COUNT (BEAKER) (test mosb=234) 4.12 M/ L 3.93-5.22 HEMOGLOBIN (BEAKER) (test yyde=291) 11.8 GM/DL 11.2-15.7 HEMATOCRIT (BEAKER) (test efzy=090) 36.6 % 34.1-44.9 MEAN CORPUSCULAR VOLUME (BEAKER) (test cbsk=721) 88.8 fL 79.4-94.8 MEAN CORPUSCULAR HEMOGLOBIN (BEAKER) (test 28.6 pg 25.6-32.2 beug=971) MEAN CORPUSCULAR HEMOGLOBIN CONC (BEAKER) (test 32.2 GM/DL 32.2-35.5 onlb=892) RED CELL DISTRIBUTION WIDTH (BEAKER) (test 14.1 % 11.7-14.4 jpqt=652) PLATELET COUNT (BEAKER) (test xqss=633) 416 K/CU MM 150-450 MEAN PLATELET VOLUME (BEAKER) (test zfei=637) 9.0 fL 9.4-12.3 NUCLEATED RED BLOOD CELLS (BEAKER) (test 0 /100 WBC 0-0 vnve=923) NEUTROPHILS RELATIVE PERCENT (BEAKER) (test 78 % bsfn=327) LYMPHOCYTES RELATIVE PERCENT (BEAKER) (test 13 % pzeh=249) MONOCYTES RELATIVE PERCENT (BEAKER) (test 7 % tfto=701) EOSINOPHILS RELATIVE PERCENT (BEAKER) (test 1 % nulq=311) BASOPHILS RELATIVE PERCENT (BEAKER) (test 0 % qvdf=496) NEUTROPHILS ABSOLUTE COUNT (BEAKER) (test 11.15 K/ L 1.56-6.13 tuqm=246) LYMPHOCYTES ABSOLUTE COUNT (BEAKER) (test 1.90 K/ L 1.18-3.74 ddjq=420) MONOCYTES ABSOLUTE COUNT (BEAKER) (test 1.03 K/ L 0.24-0.36 hzvo=859) EOSINOPHILS ABSOLUTE COUNT (BEAKER) (test 0.12 K/ L 0.04-0.36 oslx=853) BASOPHILS ABSOLUTE COUNT (BEAKER) (test 0.05 K/ L 0.01-0.08 ippk=603) IMMATURE GRANULOCYTES-RELATIVE PERCENT (BEAKER) 1 % 0-1 (test pfdi=3445) CBC W/PLT COUNT & AUTO [id number] 13:54:00 Test Item Value Reference Range Comments WHITE BLOOD CELL COUNT (BEAKER) (test iusw=092) 24.1 K/ L 3.5-10.5 RED BLOOD CELL COUNT (BEAKER) (test jkwj=515) 2.93 M/ L 3.93-5.22 HEMOGLOBIN (BEAKER) (test egzq=105) 8.1 GM/DL 11.2-15.7 HEMATOCRIT (BEAKER) (test xubp=400) 26.4 % 34.1-44.9 MEAN CORPUSCULAR VOLUME (BEAKER) (test zznj=533) 90.1 fL 79.4-94.8 MEAN CORPUSCULAR HEMOGLOBIN (BEAKER) (test 27.6 pg 25.6-32.2 zknd=017) MEAN CORPUSCULAR HEMOGLOBIN CONC (BEAKER) (test 30.7 GM/DL 32.2-35.5 tcqp=682) RED CELL DISTRIBUTION WIDTH (BEAKER) (test 14.3 % 11.7-14.4 dlat=487) PLATELET COUNT (BEAKER) (test pmtr=093) 470 K/CU MM 150-450 MEAN PLATELET VOLUME (BEAKER) (test rkki=920) 9.6 fL 9.4-12.3 NUCLEATED RED BLOOD CELLS (BEAKER) (test 0 /100 WBC 0-0 luua=877) (CELLAVISION MANUAL DIFF)2018-12-09 13:54:00 Test Item Value Reference Range Comments NEUTROPHILS - REL (CELLAVISION)(BEAKER) (test 89 % zdjx=0071) LYMPHOCYTES - REL (CELLAVISION)(BEAKER) (test 8 % cobq=9352) MONOCYTES - REL (CELLAVISION)(BEAKER) (test 2 % btjh=6389) EOSINOPHILS - REL (CELLAVISION)(BEAKER) (test 1 % mkpo=9254) NEUTROPHILS - ABS (CELLAVISION)(BEAKER) (test 21.45 K/ul 1.56-6.13 ujny=0301) LYMPHOCYTES - ABS (CELLAVISION)(BEAKER) (test 1.93 K/ul 1.18-3.74 taew=6120) MONOCYTES - ABS (CELLAVISION)(BEAKER) (test 0.48 K/uL 0.24-0.36 uzgu=6223) EOSINOPHILS - ABS (CELLAVISION)(BEAKER) (test 0.24 K/uL 0.04-0.36 dqmc=3386) TOTAL COUNTED (BEAKER) (test fodu=5254) 100 WBC MORPHOLOGY (BEAKER) (test qlkw=697) Normal PLT MORPHOLOGY (BEAKER) (test ktpg=843) Normal POLYCHROMATOPHILLIC RBCS(BEAKER) (test yjrc=899) 1+ few ARTIFACT (CELLAVISION)(BEAKER) (test jivm=3100) Present PLATELET CONCENTRATION (CELLAVISION)(BEAKER) Increased (test ihvh=4318) Received comment: User comments: Slide comments:POCT-GLUCOSE [id number] 09: 58:00 Test Item Value Reference Range Comments POC-GLUCOSE METER (BEAKER) 272 mg/dL 70-110 TESTED AT [address] (test ubjx=4163) [facility] [address] POCT-GLUCOSE [id number] 09:03:00 Test Item Value Reference Range Comments POC-GLUCOSE METER (BEAKER) 195 mg/dL 70-110 TESTED AT [address] (test rfzf=6973) [facility] [address] [id number] 06:58:00 Test Item Value Reference Range Comments MAGNESIUM (BEAKER) (test bojq=541) 1.4 mg/dL 1.6-2.6 BASIC METABOLIC [id number] 06:58:00 Test Item Value Reference Range Comments SODIUM (BEAKER) (test 137 meq/L 136-145 gvrr=017) POTASSIUM (BEAKER) (test 3.8 meq/L 3.5-5.1 cywq=535) CHLORIDE (BEAKER) (test 100 meq/L 98-107 yptm=926) CO2 (BEAKER) (test 29 meq/L 22-29 ggyg=753) BLOOD UREA NITROGEN 7 mg/dL 7-21 (BEAKER) (test nsrz=126) CREATININE (BEAKER) (test 0.79 mg/dL 0.57-1.25 uiqv=719) GLUCOSE RANDOM (BEAKER) 204 mg/dL 70-105 (test rtcc=154) CALCIUM (BEAKER) (test 9.4 mg/dL 8.4-10.2 fuvq=715) EGFR (BEAKER) (test 77 mL/min/1.73 sq m ESTIMATED GFR IS NOT qnbj=0865) ACCURATE CREATININE CLEARANCE IN PREDICTING GLOMERULAR FILTRATION RATE. ESTIMATED GFR IS NOT APPLICABLE FOR DIALYSIS PATIENTS. SCREEN, [id number] 20:41:00 Test Item Value Reference Range Comments TEST URINE (PAM) (test mrts=090) Negative POCT-GLUCOSE [id number] 20:16:00 Test Item Value Reference Range Comments POC-GLUCOSE METER (PAM) 212 mg/dL 70-110 TESTED AT [place] [id number] [facility] (test nmhm=7478) [place] [id number] POCT-GLUCOSE [id number] 17:33:00 Test Item Value Reference Range Comments POC-GLUCOSE METER (PAM) 246 mg/dL 70-110 TESTED AT [address] (test ztxl=4544) [facility] [id number] POCT-GLUCOSE [id number] 13:01:00 Test Item Value Reference Range Comments POC-GLUCOSE METER (PAM) 305 mg/dL 70-110 TESTED AT [address] (test ivqq=4171) [place] [id number] U/S, RENAL, [id number] 09:54:00Reason for exam:->eval right peritoneal fluid collection [...] Impression: Unremarkable renal ultrasound. Signed: Mónica Moya MDReport Verified Date/Time: 12/08/2018 09:54:36 Reading Location: [address] Radiology Reading Room [id number] 06:37:00 Test Item Value Reference Range Comments MAGNESIUM (BEAKER) (test 1.7 mg/dL 1.6-2.6 Specimen slightly hemolyzed kbre=830) BASIC METABOLIC [id number] 06:37:00 Test Item Value Reference Range Comments SODIUM (BEAKER) (test 134 meq/L 136-145 lgxe=495) POTASSIUM (BEAKER) (test 4.0 meq/L 3.5-5.1 Specimen slightly vzvk=323) hemolyzed CHLORIDE (BEAKER) (test 103 meq/L 98-107 nwzi=188) CO2 (BEAKER) (test 26 meq/L 22-29 yzxx=964) BLOOD UREA NITROGEN 7 mg/dL 7-21 (BEAKER) (test qgjy=345) CREATININE (BEAKER) (test 0.68 mg/dL 0.57-1.25 Specimen slightly lhvf=245) hemolyzed GLUCOSE RANDOM (BEAKER) 194 mg/dL 70-105 (test jnek=422) CALCIUM (BEAKER) (test 9.0 mg/dL 8.4-10.2 tgey=022) EGFR (BEAKER) (test 92 mL/min/1.73 sq m ESTIMATED GFR IS NOT qfio=4316) ACCURATE CREATININE CLEARANCE IN PREDICTING GLOMERULAR FILTRATION RATE. ESTIMATED GFR IS NOT APPLICABLE FOR DIALYSIS PATIENTS. CBC W/PLT COUNT & AUTO [id number] 06:27:00 Test Item Value Reference Range Comments WHITE BLOOD CELL COUNT (BEAKER) (test ygzu=475) 14.0 K/ L 3.5-10.5 RED BLOOD CELL COUNT (BEAKER) (test waqv=888) 4.29 M/ L 3.93-5.22 HEMOGLOBIN (BEAKER) (test cinj=520) 12.0 GM/DL 11.2-15.7 HEMATOCRIT (BEAKER) (test wgpl=274) 38.4 % 34.1-44.9 MEAN CORPUSCULAR VOLUME (BEAKER) (test tkvh=902) 89.5 fL 79.4-94.8 MEAN CORPUSCULAR HEMOGLOBIN (BEAKER) (test 28.0 pg 25.6-32.2 ayap=024) MEAN CORPUSCULAR HEMOGLOBIN CONC (BEAKER) (test 31.3 GM/DL 32.2-35.5 yaal=235) RED CELL DISTRIBUTION WIDTH (BEAKER) (test 14.3 % 11.7-14.4 jwhf=711) PLATELET COUNT (BEAKER) (test bqth=821) 355 K/CU MM 150-450 MEAN PLATELET VOLUME (BEAKER) (test brzf=867) 9.0 fL 9.4-12.3 NUCLEATED RED BLOOD CELLS (BEAKER) (test 0 /100 WBC 0-0 dijc=976) NEUTROPHILS RELATIVE PERCENT (BEAKER) (test 77 % pwua=574) LYMPHOCYTES RELATIVE PERCENT (BEAKER) (test 13 % itoq=462) MONOCYTES RELATIVE PERCENT (BEAKER) (test 8 % bxgz=564) EOSINOPHILS RELATIVE PERCENT (BEAKER) (test 1 % qhkq=930) BASOPHILS RELATIVE PERCENT (BEAKER) (test 0 % vsct=225) NEUTROPHILS ABSOLUTE COUNT (BEAKER) (test 10.86 K/ L 1.56-6.13 xnms=253) LYMPHOCYTES ABSOLUTE COUNT (BEAKER) (test 1.85 K/ L 1.18-3.74 afqz=154) MONOCYTES ABSOLUTE COUNT (BEAKER) (test 1.06 K/ L 0.24-0.36 bjbg=210) EOSINOPHILS ABSOLUTE COUNT (BEAKER) (test 0.11 K/ L 0.04-0.36 stap=250) BASOPHILS ABSOLUTE COUNT (BEAKER) (test 0.05 K/ L 0.01-0.08 kyso=798) IMMATURE GRANULOCYTES-RELATIVE PERCENT (BEAKER) 1 % 0-1 (test wrpe=5259) POCT-GLUCOSE [id number] 21:35:00 Test Item Value Reference Range Comments POC-GLUCOSE METER (BEAKER) 251 mg/dL 70-110 TESTED AT [address] (test xuyi=4930) [facility] [id number] POCT-GLUCOSE [id number] 17:29:00 Test Item Value Reference Range Comments POC-GLUCOSE METER (BEAKER) 171 mg/dL 70-110 TESTED AT [address] (test vixd=7547) [facility] [address] POCT-GLUCOSE [id number] 12:03:00 Test Item Value Reference Range Comments POC-GLUCOSE METER (BEAKER) 163 mg/dL 70-110 TESTED AT [address] (test enjq=1001) [place] [id number] POCT-GLUCOSE [id number] 11:35:00 Test Item Value Reference Range Comments POC-GLUCOSE METER (BEAKER) 167 mg/dL 70-110 TESTED AT [facility] [address] [facility] (test isaz=7874) [facility] [address] [id number] 07:52:00 Test Item Value Reference Range Comments MAGNESIUM (BEAKER) (test skye=836) 1.5 mg/dL 1.6-2.6 BASIC METABOLIC [id number] 07:52:00 Test Item Value Reference Range Comments SODIUM (BEAKER) (test 135 meq/L 136-145 zyxl=844) POTASSIUM (BEAKER) (test 4.2 meq/L 3.5-5.1 xfjx=853) CHLORIDE (BEAKER) (test 103 meq/L 98-107 oqaq=124) CO2 (BEAKER) (test 25 meq/L 22-29 bxlb=743) BLOOD UREA NITROGEN 9 mg/dL 7-21 (BEAKER) (test ucrj=105) CREATININE (BEAKER) (test 0.67 mg/dL 0.57-1.25 yrws=288) GLUCOSE RANDOM (BEAKER) 179 mg/dL 70-105 (test ytaw=776) CALCIUM (BEAKER) (test 8.6 mg/dL 8.4-10.2 gzro=833) EGFR (BEAKER) (test 94 mL/min/1.73 sq m ESTIMATED GFR IS NOT murp=0288) ACCURATE CREATININE CLEARANCE IN PREDICTING GLOMERULAR FILTRATION RATE. ESTIMATED GFR IS NOT APPLICABLE FOR DIALYSIS PATIENTS. CBC W/PLT COUNT & AUTO [id number] 06:46:00 Test Item Value Reference Range Comments WHITE BLOOD CELL COUNT (BEAKER) (test trol=485) 13.8 K/ L 3.5-10.5 RED BLOOD CELL COUNT (BEAKER) (test doyc=005) 4.19 M/ L 3.93-5.22 HEMOGLOBIN (BEAKER) (test mzzh=102) 11.9 GM/DL 11.2-15.7 HEMATOCRIT (BEAKER) (test zysl=216) 38.1 % 34.1-44.9 MEAN CORPUSCULAR VOLUME (BEAKER) (test svry=635) 90.9 fL 79.4-94.8 MEAN CORPUSCULAR HEMOGLOBIN (BEAKER) (test 28.4 pg 25.6-32.2 ilcp=026) MEAN CORPUSCULAR HEMOGLOBIN CONC (BEAKER) (test 31.2 GM/DL 32.2-35.5 gofs=589) RED CELL DISTRIBUTION WIDTH (BEAKER) (test 14.5 % 11.7-14.4 uqee=005) PLATELET COUNT (BEAKER) (test hvea=871) 336 K/CU MM 150-450 MEAN PLATELET VOLUME (BEAKER) (test zgnc=696) 9.2 fL 9.4-12.3 NUCLEATED RED BLOOD CELLS (BEAKER) (test 0 /100 WBC 0-0 nhki=966) NEUTROPHILS RELATIVE PERCENT (BEAKER) (test 76 % ekxp=562) LYMPHOCYTES RELATIVE PERCENT (BEAKER) (test 13 % kksz=960) MONOCYTES RELATIVE PERCENT (BEAKER) (test 8 % pklk=868) EOSINOPHILS RELATIVE PERCENT (BEAKER) (test 1 % etrf=349) BASOPHILS RELATIVE PERCENT (BEAKER) (test 0 % cjfl=880) NEUTROPHILS ABSOLUTE COUNT (BEAKER) (test 10.51 K/ L 1.56-6.13 wrxx=143) LYMPHOCYTES ABSOLUTE COUNT (BEAKER) (test 1.85 K/ L 1.18-3.74 qmik=046) MONOCYTES ABSOLUTE COUNT (BEAKER) (test 1.10 K/ L 0.24-0.36 vibq=103) EOSINOPHILS ABSOLUTE COUNT (BEAKER) (test 0.15 K/ L 0.04-0.36 ojfe=542) BASOPHILS ABSOLUTE COUNT (BEAKER) (test 0.06 K/ L 0.01-0.08 xmhh=068) IMMATURE GRANULOCYTES-RELATIVE PERCENT (BEAKER) 1 % 0-1 (test qdqy=6055) POCT-GLUCOSE [id number] 21:46:00 Test Item Value Reference Range Comments POC-GLUCOSE METER (BEAKER) 155 mg/dL 70-110 TESTED AT [address] (test scfk=7200) [place] [id number] POCT-GLUCOSE [id number] 17:10:00 Test Item Value Reference Range Comments POC-GLUCOSE METER (BEAKER) 160 mg/dL 70-110 TESTED AT [address] (test vwnn=1329) [facility] [address] CREATININE, BODY [id number] 12:23:00 Test Item Value Reference Range Comments CREATININE FLUID (BEAKER) (test awzi=127) 26.08 mg/dL Reference Range: No Normals Assay performance has not been validated for this type of specimen.POCT-GLUCOSE [id number] 11:36:00 Test Item Value Reference Range Comments POC-GLUCOSE METER (BEAKER) 166 mg/dL 70-110 TESTED AT [facility] [address] [facility] (test vzwj=8965) [facility] [address] POCT-GLUCOSE [id number] 08:25:00 Test Item Value Reference Range Comments POC-GLUCOSE METER (BEAKER) 149 mg/dL 70-110 TESTED AT [place] [id number] [facility] (test lmiu=5047) [facility] [address] [id number] 07:40:00 Test Item Value Reference Range Comments MAGNESIUM (BEAKER) (test jlel=125) 1.6 mg/dL 1.6-2.6 BASIC METABOLIC [id number] 07:40:00 Test Item Value Reference Range Comments SODIUM (BEAKER) (test 135 meq/L 136-145 bbkg=160) POTASSIUM (BEAKER) (test 3.9 meq/L 3.5-5.1 jjrc=099) CHLORIDE (BEAKER) (test 104 meq/L 98-107 kexh=993) CO2 (BEAKER) (test 27 meq/L 22-29 fhsh=321) BLOOD UREA NITROGEN 6 mg/dL 7-21 (BEAKER) (test psgi=252) CREATININE (BEAKER) (test 0.62 mg/dL 0.57-1.25 ujql=971) GLUCOSE RANDOM (BEAKER) 142 mg/dL 70-105 (test joed=938) CALCIUM (BEAKER) (test 8.6 mg/dL 8.4-10.2 sbac=376) EGFR (BEAKER) (test 102 mL/min/1.73 sq m ESTIMATED GFR IS NOT wulw=5958) ACCURATE CREATININE CLEARANCE IN PREDICTING GLOMERULAR FILTRATION RATE. ESTIMATED GFR IS NOT APPLICABLE FOR DIALYSIS PATIENTS. CBC W/PLT COUNT & AUTO [id number] 06:34:00 Test Item Value Reference Range Comments WHITE BLOOD CELL COUNT (BEAKER) (test dtwx=381) 13.8 K/ L 3.5-10.5 RED BLOOD CELL COUNT (BEAKER) (test hxlh=836) 4.28 M/ L 3.93-5.22 HEMOGLOBIN (BEAKER) (test bvjc=302) 12.0 GM/DL 11.2-15.7 HEMATOCRIT (BEAKER) (test swrx=201) 37.8 % 34.1-44.9 MEAN CORPUSCULAR VOLUME (BEAKER) (test wgek=019) 88.3 fL 79.4-94.8 MEAN CORPUSCULAR HEMOGLOBIN (BEAKER) (test 28.0 pg 25.6-32.2 urqe=863) MEAN CORPUSCULAR HEMOGLOBIN CONC (BEAKER) (test 31.7 GM/DL 32.2-35.5 dlzw=226) RED CELL DISTRIBUTION WIDTH (BEAKER) (test 14.5 % 11.7-14.4 frro=079) PLATELET COUNT (BEAKER) (test kqxc=931) 337 K/CU MM 150-450 MEAN PLATELET VOLUME (BEAKER) (test ijpy=479) 8.9 fL 9.4-12.3 NUCLEATED RED BLOOD CELLS (BEAKER) (test 0 /100 WBC 0-0 ynwz=288) NEUTROPHILS RELATIVE PERCENT (BEAKER) (test 76 % dasb=535) LYMPHOCYTES RELATIVE PERCENT (BEAKER) (test 14 % pvsw=304) MONOCYTES RELATIVE PERCENT (BEAKER) (test 7 % vdlb=634) EOSINOPHILS RELATIVE PERCENT (BEAKER) (test 1 % imgr=410) BASOPHILS RELATIVE PERCENT (BEAKER) (test 0 % keki=812) NEUTROPHILS ABSOLUTE COUNT (BEAKER) (test 10.47 K/ L 1.56-6.13 olps=948) LYMPHOCYTES ABSOLUTE COUNT (BEAKER) (test 1.98 K/ L 1.18-3.74 hhll=613) MONOCYTES ABSOLUTE COUNT (BEAKER) (test 0.96 K/ L 0.24-0.36 pypv=459) EOSINOPHILS ABSOLUTE COUNT (BEAKER) (test 0.16 K/ L 0.04-0.36 fosb=843) BASOPHILS ABSOLUTE COUNT (BEAKER) (test 0.05 K/ L 0.01-0.08 lhak=594) IMMATURE GRANULOCYTES-RELATIVE PERCENT (BEAKER) 1 % 0-1 (test pcmh=6754) POCT-GLUCOSE [id number] 21:17:00 Test Item Value Reference Range Comments POC-GLUCOSE METER (BEAKER) 175 mg/dL 70-110 TESTED AT [address] (test vwqm=7190) [facility] [address] POCT-GLUCOSE [id number] 16:47:00 Test Item Value Reference Range Comments POC-GLUCOSE METER (BEAKER) 184 mg/dL 70-110 TESTED AT [address] (test odgw=9042) [facility] [address] POCT-GLUCOSE [id number] 12:48:00 Test Item Value Reference Range Comments POC-GLUCOSE METER (BEAKER) 196 mg/dL 70-110 TESTED AT [address] (test cxws=1684) [facility] [address] POCT-GLUCOSE [id number] 08:16:00 Test Item Value Reference Range Comments POC-GLUCOSE METER (BEAKER) 195 mg/dL 70-110 TESTED AT [address] (test dbrc=7521) [facility] [address] [id number] 07:40:00 Test Item Value Reference Range Comments MAGNESIUM (BEAKER) (test iaye=466) 1.4 mg/dL 1.6-2.6 BASIC METABOLIC [id number] 07:40:00 Test Item Value Reference Range Comments SODIUM (BEAKER) (test 136 meq/L 136-145 vigh=737) POTASSIUM (BEAKER) (test 4.1 meq/L 3.5-5.1 txyh=943) CHLORIDE (BEAKER) (test 104 meq/L 98-107 pojq=611) CO2 (BEAKER) (test 25 meq/L 22-29 kfij=307) BLOOD UREA NITROGEN 8 mg/dL 7-21 (BEAKER) (test hyak=948) CREATININE (BEAKER) (test 0.60 mg/dL 0.57-1.25 lrxd=886) GLUCOSE RANDOM (BEAKER) 166 mg/dL 70-105 (test yymo=473) CALCIUM (BEAKER) (test 8.7 mg/dL 8.4-10.2 gfvb=672) EGFR (BEAKER) (test 106 mL/min/1.73 sq m ESTIMATED GFR IS NOT vmzp=7237) ACCURATE CREATININE CLEARANCE IN PREDICTING GLOMERULAR FILTRATION RATE. ESTIMATED GFR IS NOT APPLICABLE FOR DIALYSIS PATIENTS. CBC W/PLT COUNT & AUTO [id number] 07:11:00 Test Item Value Reference Range Comments WHITE BLOOD CELL COUNT (BEAKER) (test lyhw=219) 16.2 K/ L 3.5-10.5 RED BLOOD CELL COUNT (BEAKER) (test zdnw=167) 4.21 M/ L 3.93-5.22 HEMOGLOBIN (BEAKER) (test pzvw=017) 11.9 GM/DL 11.2-15.7 HEMATOCRIT (BEAKER) (test nxbv=703) 37.2 % 34.1-44.9 MEAN CORPUSCULAR VOLUME (BEAKER) (test rhpm=323) 88.4 fL 79.4-94.8 MEAN CORPUSCULAR HEMOGLOBIN (BEAKER) (test 28.3 pg 25.6-32.2 vyrz=164) MEAN CORPUSCULAR HEMOGLOBIN CONC (BEAKER) (test 32.0 GM/DL 32.2-35.5 cutt=292) RED CELL DISTRIBUTION WIDTH (BEAKER) (test 14.4 % 11.7-14.4 epqm=249) PLATELET COUNT (BEAKER) (test eytn=937) 328 K/CU MM 150-450 MEAN PLATELET VOLUME (BEAKER) (test vhmf=125) 9.0 fL 9.4-12.3 NUCLEATED RED BLOOD CELLS (BEAKER) (test 0 /100 WBC 0-0 whqj=483) NEUTROPHILS RELATIVE PERCENT (BEAKER) (test 77 % kvvh=583) LYMPHOCYTES RELATIVE PERCENT (BEAKER) (test 12 % dsoz=117) MONOCYTES RELATIVE PERCENT (BEAKER) (test 7 % uoya=461) EOSINOPHILS RELATIVE PERCENT (BEAKER) (test 1 % avlg=608) BASOPHILS RELATIVE PERCENT (BEAKER) (test 0 % epeg=436) NEUTROPHILS ABSOLUTE COUNT (BEAKER) (test 12.48 K/ L 1.56-6.13 vqsq=813) LYMPHOCYTES ABSOLUTE COUNT (BEAKER) (test 1.99 K/ L 1.18-3.74 rswz=687) MONOCYTES ABSOLUTE COUNT (BEAKER) (test 1.19 K/ L 0.24-0.36 xawh=076) EOSINOPHILS ABSOLUTE COUNT (BEAKER) (test 0.16 K/ L 0.04-0.36 dbuw=820) BASOPHILS ABSOLUTE COUNT (BEAKER) (test 0.06 K/ L 0.01-0.08 ejby=871) IMMATURE GRANULOCYTES-RELATIVE PERCENT (BEAKER) 2 % 0-1 (test zjnx=1688) BLOOD [id number] 02:01:00 Test Item Value Reference Range Comments CULTURE (BEAKER) (test cdrd=0838) No growth in 5 days BLOOD [id number] 02:01:00 Test Item Value Reference Range Comments CULTURE (BEAKER) (test xaxc=7602) No growth in 5 days POCT-GLUCOSE [id number] 21:35:00 Test Item Value Reference Range Comments POC-GLUCOSE METER (BEAKER) 178 mg/dL 70-110 TESTED AT [address] (test gypy=7167) [place] [address] POCT-GLUCOSE [id number] 17:28:00 Test Item Value Reference Range Comments POC-GLUCOSE METER (BEAKER) 297 mg/dL 70-110 TESTED AT [address] (test qiaa=8568) [place] [address] POCT-GLUCOSE [id number] 16:19:00 Test Item Value Reference Range Comments POC-GLUCOSE METER (BEAKER) 184 mg/dL 70-110 TESTED AT [address] (test ynxw=4924) [place] [address] ANG, DRAINAGE TUBE CHANGE (GASTRO, NEPHRO OR [...] amorphous collection was visualized through the 8 Nigerien drain. The catheter was exchanged over a guidewire. A 10 Nigerien catheter was placed.. The catheter was manipulated with contrast monitoring. The patient tolerated the procedure well. The patient left the department in the same condition. Impression:Successful, uncomplicated upsizing of a right perinephric drain. Signed: Martita Voeport Verified Date/Time: 12/04/2018 15:35:20 Reading Location: [facility] [id number] Angio Body Reading Room Electronically signed by: MARTITA VO M.D. on 03:35 PMPOCT-GLUCOSE [id number] 08:22:00 Test Item Value Reference Range Comments POC-GLUCOSE METER (BEAKER) 223 mg/dL 70-110 TESTED AT [facility] [address] [facility] (test ndee=0246) [facility] [address] [id number] 07:42:00 Test Item Value Reference Range Comments MAGNESIUM (BEAKER) (test jpfv=990) 1.8 mg/dL 1.6-2.6 BASIC METABOLIC [id number] 07:42:00 Test Item Value Reference Range Comments SODIUM (BEAKER) (test 133 meq/L 136-145 jmok=392) POTASSIUM (BEAKER) (test 4.2 meq/L 3.5-5.1 alef=686) CHLORIDE (BEAKER) (test 99 meq/L 98-107 hipv=424) CO2 (BEAKER) (test 30 meq/L 22-29 ypbq=109) BLOOD UREA NITROGEN 11 mg/dL 7-21 (BEAKER) (test nrrm=172) CREATININE (BEAKER) (test 0.68 mg/dL 0.57-1.25 lwbb=903) GLUCOSE RANDOM (BEAKER) 213 mg/dL 70-105 (test phqc=064) CALCIUM (BEAKER) (test 8.8 mg/dL 8.4-10.2 gook=787) EGFR (BEAKER) (test 92 mL/min/1.73 sq m ESTIMATED GFR IS NOT dbhn=8377) ACCURATE CREATININE CLEARANCE IN PREDICTING GLOMERULAR FILTRATION RATE. ESTIMATED GFR IS NOT APPLICABLE FOR DIALYSIS PATIENTS. CBC W/PLT COUNT & AUTO [id number] 07:13:00 Test Item Value Reference Range Comments WHITE BLOOD CELL COUNT (BEAKER) (test tfqj=998) 16.6 K/ L 3.5-10.5 RED BLOOD CELL COUNT (BEAKER) (test fanj=115) 4.40 M/ L 3.93-5.22 HEMOGLOBIN (BEAKER) (test vjsv=520) 12.5 GM/DL 11.2-15.7 HEMATOCRIT (BEAKER) (test nlsd=870) 38.9 % 34.1-44.9 MEAN CORPUSCULAR VOLUME (BEAKER) (test migv=033) 88.4 fL 79.4-94.8 MEAN CORPUSCULAR HEMOGLOBIN (BEAKER) (test 28.4 pg 25.6-32.2 eywx=973) MEAN CORPUSCULAR HEMOGLOBIN CONC (BEAKER) (test 32.1 GM/DL 32.2-35.5 vbuz=007) RED CELL DISTRIBUTION WIDTH (BEAKER) (test 14.4 % 11.7-14.4 xpvc=145) PLATELET COUNT (BEAKER) (test bcwp=185) 333 K/CU MM 150-450 MEAN PLATELET VOLUME (BEAKER) (test qdpq=957) 9.6 fL 9.4-12.3 NUCLEATED RED BLOOD CELLS (BEAKER) (test 0 /100 WBC 0-0 nvjy=769) NEUTROPHILS RELATIVE PERCENT (BEAKER) (test 76 % wcym=558) LYMPHOCYTES RELATIVE PERCENT (BEAKER) (test 13 % sock=707) MONOCYTES RELATIVE PERCENT (BEAKER) (test 8 % rquv=021) EOSINOPHILS RELATIVE PERCENT (BEAKER) (test 1 % huru=114) BASOPHILS RELATIVE PERCENT (BEAKER) (test 0 % zvyi=187) NEUTROPHILS ABSOLUTE COUNT (BEAKER) (test 12.52 K/ L 1.56-6.13 vtti=878) LYMPHOCYTES ABSOLUTE COUNT (BEAKER) (test 2.12 K/ L 1.18-3.74 xnsg=230) MONOCYTES ABSOLUTE COUNT (BEAKER) (test 1.27 K/ L 0.24-0.36 zbyw=145) EOSINOPHILS ABSOLUTE COUNT (BEAKER) (test 0.17 K/ L 0.04-0.36 dbfj=722) BASOPHILS ABSOLUTE COUNT (BEAKER) (test 0.06 K/ L 0.01-0.08 cxmn=425) IMMATURE GRANULOCYTES-RELATIVE PERCENT (BEAKER) 3 % 0-1 (test lmyi=0015) POCT-GLUCOSE [id number] 22:10:00 Test Item Value Reference Range Comments POC-GLUCOSE METER (BEAKER) 206 mg/dL 70-110 TESTED AT [address] (test vjuq=3602) [facility] [address] POCT-GLUCOSE [id number] 17:08:00 Test Item Value Reference Range Comments POC-GLUCOSE METER (BEAKER) 216 mg/dL 70-110 TESTED AT [address] (test dgpx=6786) [place] [address] POCT-GLUCOSE [id number] 12:43:00 Test Item Value Reference Range Comments POC-GLUCOSE METER (BEAKER) 239 mg/dL 70-110 TESTED AT [address] (test bfid=0613) [place] [address] POCT-GLUCOSE [id number] 11:44:00 Test Item Value Reference Range Comments POC-GLUCOSE METER (BEAKER) 249 mg/dL 70-110 TESTED AT [address] (test ceos=2863) [place] [address] BODY FLUID CULTURE + GRAM [id number] 09:14:00 Test Item Value Reference Range Comments CULTURE (BEAKER) (test ESCHERICHIA COLI 1+ Escherichia coli zhoi=1546) Amikacin (test code=1) Ampicillin + Sulbactam (test code=6) Aztreonam (test code=32) Cefepime (test code=51) Cefoxitin (test code=68) Ceftazidime (test code=27) Ceftriaxone (test code=52) Ertapenem (test code=38) Gentamicin (test code=18) Levofloxacin (test code=22) Meropenem (test code=34) Nitrofurantoin (test code=23) Piperacillin + Tazobactam (test code=29) Tetracycline (test code=2) Tobramycin (test code=25) Trimethoprim + Sulfamethoxazole (test code=47) GRAM STAIN RESULT (BEAKER) 2+ White blood cells (test olwh=1239) seen GRAM STAIN RESULT (BEAKER) No organisms seen (test wjbr=572435) POCT-GLUCOSE [id number] 07:44:00 Test Item Value Reference Range Comments POC-GLUCOSE METER (BEAKER) 186 mg/dL 70-110 TESTED AT [address] (test tgdr=8851) [place] [address] [id number] 04:06:00 Test Item Value Reference Range Comments MAGNESIUM (BEAKER) (test 1.4 mg/dL 1.6-2.6 Specimen slightly hemolyzed opmc=894) BASIC METABOLIC [id number] 04:06:00 Test Item Value Reference Range Comments SODIUM (BEAKER) (test 134 meq/L 136-145 qtma=371) POTASSIUM (BEAKER) (test 4.2 meq/L 3.5-5.1 Specimen slightly tygi=047) hemolyzed CHLORIDE (BEAKER) (test 97 meq/L 98-107 ssdq=802) CO2 (BEAKER) (test 29 meq/L 22-29 ibwn=638) BLOOD UREA NITROGEN 8 mg/dL 7-21 (BEAKER) (test zfnn=685) CREATININE (BEAKER) (test 0.64 mg/dL 0.57-1.25 Specimen slightly gyto=956) hemolyzed GLUCOSE RANDOM (BEAKER) 220 mg/dL 70-105 (test nqvd=414) CALCIUM (BEAKER) (test 8.8 mg/dL 8.4-10.2 otzs=306) EGFR (BEAKER) (test 99 mL/min/1.73 sq m ESTIMATED GFR IS NOT pxch=7208) ACCURATE CREATININE CLEARANCE IN PREDICTING GLOMERULAR FILTRATION RATE. ESTIMATED GFR IS NOT APPLICABLE FOR DIALYSIS PATIENTS. CBC W/PLT COUNT & AUTO [id number] 03:48:00 Test Item Value Reference Range Comments WHITE BLOOD CELL COUNT (BEAKER) (test qlyo=705) 16.5 K/ L 3.5-10.5 RED BLOOD CELL COUNT (BEAKER) (test nith=904) 4.29 M/ L 3.93-5.22 HEMOGLOBIN (BEAKER) (test ejre=598) 12.1 GM/DL 11.2-15.7 HEMATOCRIT (BEAKER) (test tgcm=506) 37.9 % 34.1-44.9 MEAN CORPUSCULAR VOLUME (BEAKER) (test bysv=346) 88.3 fL 79.4-94.8 MEAN CORPUSCULAR HEMOGLOBIN (BEAKER) (test 28.2 pg 25.6-32.2 ygdg=858) MEAN CORPUSCULAR HEMOGLOBIN CONC (BEAKER) (test 31.9 GM/DL 32.2-35.5 odpk=613) RED CELL DISTRIBUTION WIDTH (BEAKER) (test 14.5 % 11.7-14.4 bzyg=361) PLATELET COUNT (BEAKER) (test yzzs=213) 305 K/CU MM 150-450 MEAN PLATELET VOLUME (BEAKER) (test nvka=752) 9.6 fL 9.4-12.3 NUCLEATED RED BLOOD CELLS (BEAKER) (test 0 /100 WBC 0-0 zkxf=602) NEUTROPHILS RELATIVE PERCENT (BEAKER) (test 76 % ntsk=032) LYMPHOCYTES RELATIVE PERCENT (BEAKER) (test 12 % bpdv=237) MONOCYTES RELATIVE PERCENT (BEAKER) (test 8 % qghn=890) EOSINOPHILS RELATIVE PERCENT (BEAKER) (test 1 % mvoo=688) BASOPHILS RELATIVE PERCENT (BEAKER) (test 1 % wyut=433) NEUTROPHILS ABSOLUTE COUNT (BEAKER) (test 12.50 K/ L 1.56-6.13 dstk=134) LYMPHOCYTES ABSOLUTE COUNT (BEAKER) (test 1.95 K/ L 1.18-3.74 vdge=112) MONOCYTES ABSOLUTE COUNT (BEAKER) (test 1.33 K/ L 0.24-0.36 tbvm=218) EOSINOPHILS ABSOLUTE COUNT (BEAKER) (test 0.17 K/ L 0.04-0.36 yofy=032) BASOPHILS ABSOLUTE COUNT (BEAKER) (test 0.09 K/ L 0.01-0.08 eyvl=637) IMMATURE GRANULOCYTES-RELATIVE PERCENT (BEAKER) 3 % 0-1 (test uljw=5015) POCT-GLUCOSE [id number] 22:35:00 Test Item Value Reference Range Comments POC-GLUCOSE METER (BEAKER) 240 mg/dL 70-110 TESTED AT [address] (test xsoh=9553) [place] [address] POCT-GLUCOSE [id number] 17:37:00 Test Item Value Reference Range Comments POC-GLUCOSE METER (BEAKER) 249 mg/dL 70-110 TESTED AT [address] (test qozd=7195) [place] [address] POCT-GLUCOSE [id number] 16:49:00 Test Item Value Reference Range Comments POC-GLUCOSE METER (BEAKER) 203 mg/dL 70-110 TESTED AT [address] (test eytv=1542) [place] [address] CT, [id number] 16:07:00FINAL REPORT ABDOMINAL AND PELVIS CT DATED [...] Moyaeport Verified Date/Time: 12/02/2018 16:07:37 Reading Location: [facility] [id number] CT Body Reading Room POCT -GLUCOSE [id number] 12:43:00 Test Item Value Reference Range Comments POC-GLUCOSE METER (BEAKER) 344 mg/dL 70-110 Notified SANA MIRELES/TESTED AT [facility] (test jteb=2649) [address] [place] [address] POCT-GLUCOSE [id number] 09:16:00 Test Item Value Reference Range Comments POC-GLUCOSE METER (BEAKER) 239 mg/dL 70-110 TESTED AT [address] (test ibsx=1133) [facility] [address] VITAMIN [id number] 05:38:00 Test Item Value Reference Range Comments VITAMIN B12 (BEAKER) (test ampw=343) 1104 pg/mL 213-816 IRON, TIBC, % SAT. (WITHOUT FERRITIN)2018-12-02 05:10:00 Test Item Value Reference Range Comments IRON (BEAKER) (test rcch=880) 23.0 ug/dL 40.0-160.0 TOTAL IRON BINDING CAPACITY (BEAKER) (test 189 ug/dL 250-450 vvtn=804) IRON % SATURATION (2) (BEAKER) (test gbgu=7355) 12 % 20-55 [id number] 05:10:00 Test Item Value Reference Range Comments MAGNESIUM (BEAKER) (test hhkl=330) 1.6 mg/dL 1.6-2.6 BASIC METABOLIC [id number] 05:10:00 Test Item Value Reference Range Comments SODIUM (BEAKER) (test 134 meq/L 136-145 czzl=737) POTASSIUM (BEAKER) (test 3.4 meq/L 3.5-5.1 gvyc=478) CHLORIDE (BEAKER) (test 95 meq/L 98-107 hbcq=116) CO2 (BEAKER) (test 34 meq/L 22-29 wncz=853) BLOOD UREA NITROGEN 6 mg/dL 7-21 (BEAKER) (test xfal=764) CREATININE (BEAKER) (test 0.68 mg/dL 0.57-1.25 qrdr=750) GLUCOSE RANDOM (BEAKER) 253 mg/dL 70-105 (test yoip=249) CALCIUM (BEAKER) (test 8.2 mg/dL 8.4-10.2 mlsp=863) EGFR (BEAKER) (test 92 mL/min/1.73 sq m ESTIMATED GFR IS NOT ofvi=6074) ACCURATE CREATININE CLEARANCE IN PREDICTING GLOMERULAR FILTRATION RATE. ESTIMATED GFR IS NOT APPLICABLE FOR DIALYSIS PATIENTS. CBC W/PLT COUNT & AUTO [id number] 04:54:00 Test Item Value Reference Range Comments WHITE BLOOD CELL COUNT (BEAKER) (test fpux=986) 17.3 K/ L 3.5-10.5 RED BLOOD CELL COUNT (BEAKER) (test jrjx=782) 4.39 M/ L 3.93-5.22 HEMOGLOBIN (BEAKER) (test vmfm=668) 12.2 GM/DL 11.2-15.7 HEMATOCRIT (BEAKER) (test ksgl=340) 38.5 % 34.1-44.9 MEAN CORPUSCULAR VOLUME (BEAKER) (test xkcf=585) 87.7 fL 79.4-94.8 MEAN CORPUSCULAR HEMOGLOBIN (BEAKER) (test 27.8 pg 25.6-32.2 ufkc=909) MEAN CORPUSCULAR HEMOGLOBIN CONC (BEAKER) (test 31.7 GM/DL 32.2-35.5 ykqr=700) RED CELL DISTRIBUTION WIDTH (BEAKER) (test 14.6 % 11.7-14.4 idjr=189) PLATELET COUNT (BEAKER) (test jmmv=036) 320 K/CU MM 150-450 MEAN PLATELET VOLUME (BEAKER) (test ygwu=337) 9.0 fL 9.4-12.3 NUCLEATED RED BLOOD CELLS (BEAKER) (test 0 /100 WBC 0-0 hhtu=455) NEUTROPHILS RELATIVE PERCENT (BEAKER) (test 80 % iusn=032) LYMPHOCYTES RELATIVE PERCENT (BEAKER) (test 10 % ccft=986) MONOCYTES RELATIVE PERCENT (BEAKER) (test 7 % crbw=077) EOSINOPHILS RELATIVE PERCENT (BEAKER) (test 1 % nprj=882) BASOPHILS RELATIVE PERCENT (BEAKER) (test 0 % xegh=487) NEUTROPHILS ABSOLUTE COUNT (BEAKER) (test 13.81 K/ L 1.56-6.13 dtby=841) LYMPHOCYTES ABSOLUTE COUNT (BEAKER) (test 1.64 K/ L 1.18-3.74 mtbm=158) MONOCYTES ABSOLUTE COUNT (BEAKER) (test 1.19 K/ L 0.24-0.36 xajt=363) EOSINOPHILS ABSOLUTE COUNT (BEAKER) (test 0.15 K/ L 0.04-0.36 xpba=646) BASOPHILS ABSOLUTE COUNT (BEAKER) (test 0.05 K/ L 0.01-0.08 lgpg=801) IMMATURE GRANULOCYTES-RELATIVE PERCENT (BEAKER) 3 % 0-1 (test wglm=3981) POCT-GLUCOSE [id number] 23:16:00 Test Item Value Reference Range Comments POC-GLUCOSE METER (BEAKER) 223 mg/dL 70-110 TESTED AT [facility] [address] [facility] (test hgzf=8680) [facility] [address] CT, DRAINAGE, [id number] 17:21:00Reason for exam:->emphysematous pyelonephritisFINAL REPORT CT guided drainage catheter placement, 11/29/2018. Clinical History: Emphysematous pyelonephritis. Modality: CT. Automatic I Threading Machine Feeder: Ember. Film Inspector: None. Conscious sedation: None. Estimated Blood Loss: [...] soft tissue tract was created with 8 Nigerien dilator. After the tract was dilated, an 8.5 Nigerien all-purpose drainage catheter was placed into the [...] contrast suggestive of urinoma. Signed: Jacob Pa MDReport Verified Date/Time: 17:21:29 Reading Location: [address] Body Reading Room POCT- GLUCOSE [id number] 17:09:00 Test Item Value Reference Range Comments POC-GLUCOSE METER (BEAKER) 209 mg/dL 70-110 TESTED AT [place] [id number] [facility] (test yhhr=3499) [facility] [address] POCT-GLUCOSE [id number] 11:04:00 Test Item Value Reference Range Comments POC-GLUCOSE METER (BEAKER) 272 mg/dL 70-110 TESTED AT [address] (test pbyz=5803) [facility] [address] POCT-GLUCOSE [id number] 07:46:00 Test Item Value Reference Range Comments POC-GLUCOSE METER (BEAKER) 248 mg/dL 70-110 TESTED AT [address] (test bztb=3102) [facility] [address] VANCOMYCIN LEVEL, [id number] 05:54:00 Test Item Value Reference Range Comments VANCOMYCIN TROUGH (BEAKER) (test cmku=962) 16.2 ug/mL 10.0-20.0 [id number] 05:27:00 Test Item Value Reference Range Comments MAGNESIUM (BEAKER) (test cszo=547) 1.6 mg/dL 1.6-2.6 BASIC METABOLIC [id number] 05:27:00 Test Item Value Reference Range Comments SODIUM (BEAKER) (test 133 meq/L 136-145 ywle=273) POTASSIUM (BEAKER) (test 3.5 meq/L 3.5-5.1 lmyj=766) CHLORIDE (BEAKER) (test 94 meq/L 98-107 xqjs=033) CO2 (BEAKER) (test 31 meq/L 22-29 kywz=687) BLOOD UREA NITROGEN 8 mg/dL 7-21 (BEAKER) (test niwz=524) CREATININE (BEAKER) (test 0.71 mg/dL 0.57-1.25 gkpw=718) GLUCOSE RANDOM (BEAKER) 244 mg/dL 70-105 (test guxy=178) CALCIUM (BEAKER) (test 8.2 mg/dL 8.4-10.2 wwdp=900) EGFR (BEAKER) (test 87 mL/min/1.73 sq m ESTIMATED GFR IS NOT xdnu=2286) ACCURATE CREATININE CLEARANCE IN PREDICTING GLOMERULAR FILTRATION RATE. ESTIMATED GFR IS NOT APPLICABLE FOR DIALYSIS PATIENTS. CBC W/PLT COUNT & AUTO [id number] 04:56:00 Test Item Value Reference Range Comments WHITE BLOOD CELL COUNT (BEAKER) (test wfvd=751) 20.8 K/ L 3.5-10.5 RED BLOOD CELL COUNT (BEAKER) (test tqaj=839) 4.25 M/ L 3.93-5.22 HEMOGLOBIN (BEAKER) (test rcxj=953) 11.9 GM/DL 11.2-15.7 HEMATOCRIT (BEAKER) (test xbka=243) 36.9 % 34.1-44.9 MEAN CORPUSCULAR VOLUME (BEAKER) (test heeq=828) 86.8 fL 79.4-94.8 MEAN CORPUSCULAR HEMOGLOBIN (BEAKER) (test 28.0 pg 25.6-32.2 egjc=021) MEAN CORPUSCULAR HEMOGLOBIN CONC (BEAKER) (test 32.2 GM/DL 32.2-35.5 apdi=595) RED CELL DISTRIBUTION WIDTH (BEAKER) (test 14.8 % 11.7-14.4 kutj=126) PLATELET COUNT (BEAKER) (test befn=217) 338 K/CU MM 150-450 MEAN PLATELET VOLUME (BEAKER) (test dqgf=538) 9.5 fL 9.4-12.3 NUCLEATED RED BLOOD CELLS (BEAKER) (test 0 /100 WBC 0-0 ihmb=778) NEUTROPHILS RELATIVE PERCENT (BEAKER) (test 81 % jyrw=605) LYMPHOCYTES RELATIVE PERCENT (BEAKER) (test 8 % ulgo=247) MONOCYTES RELATIVE PERCENT (BEAKER) (test 6 % daeu=474) EOSINOPHILS RELATIVE PERCENT (BEAKER) (test 1 % xmzw=053) BASOPHILS RELATIVE PERCENT (BEAKER) (test 1 % pvsp=558) NEUTROPHILS ABSOLUTE COUNT (BEAKER) (test 16.82 K/ L 1.56-6.13 lptf=386) LYMPHOCYTES ABSOLUTE COUNT (BEAKER) (test 1.70 K/ L 1.18-3.74 hmhj=934) MONOCYTES ABSOLUTE COUNT (BEAKER) (test 1.20 K/ L 0.24-0.36 pgqo=683) EOSINOPHILS ABSOLUTE COUNT (BEAKER) (test 0.12 K/ L 0.04-0.36 ewwu=145) BASOPHILS ABSOLUTE COUNT (BEAKER) (test 0.11 K/ L 0.01-0.08 qcdt=927) IMMATURE GRANULOCYTES-RELATIVE PERCENT (BEAKER) 4 % 0-1 (test geuk=4246) POCT-GLUCOSE [id number] 22:28:00 Test Item Value Reference Range Comments POC-GLUCOSE METER (BEAKER) 251 mg/dL 70-110 TESTED AT [facility] [address] [facility] (test lfbk=0992) [place] [address] [id number] 22:19:00 Test Item Value Reference Range Comments MAGNESIUM (BEAKER) (test 2.3 mg/dL 1.6-2.6 Specimen moderately hemolyzed zxep=360) BASIC METABOLIC [id number] 22:19:00 Test Item Value Reference Range Comments SODIUM (BEAKER) (test 133 meq/L 136-145 ogju=130) POTASSIUM (BEAKER) (test 4.2 meq/L 3.5-5.1 Specimen moderately flez=076) hemolyzed CHLORIDE (BEAKER) (test 95 meq/L 98-107 ahyf=693) CO2 (BEAKER) (test 31 meq/L 22-29 epxl=491) BLOOD UREA NITROGEN 8 mg/dL 7-21 (BEAKER) (test jlld=850) CREATININE (BEAKER) (test 0.81 mg/dL 0.57-1.25 Specimen moderately qjke=503) hemolyzed GLUCOSE RANDOM (BEAKER) 271 mg/dL 70-105 (test qjan=026) CALCIUM (BEAKER) (test 8.5 mg/dL 8.4-10.2 nghk=624) EGFR (BEAKER) (test 75 mL/min/1.73 sq m ESTIMATED GFR IS NOT gdov=7383) ACCURATE CREATININE CLEARANCE IN PREDICTING GLOMERULAR FILTRATION RATE. ESTIMATED GFR IS NOT APPLICABLE FOR DIALYSIS PATIENTS. RAD, CHEST, 1 VIEW, NON [id number] 21:22:00Reason for exam:-> HypoxiaShould this be performed at the bedside?->YesFINAL REPORT INDICATION: Hypoxia TECHNIQUE: Chest radiograph, single view, portable technique. FINDINGS / IMPRESSION: Heart shadow is enlarged and there is central pulmonary venous congestion. No overt pulmonary edema and no pleural effusion demonstrated. Right hemidiaphragm mildly elevated. No pneumothorax. Signed: Edson Byrne MDReport Verified Date/Time: 11/30/2018 21:22:48 Reading Location: [facility] [id number] Consult Reading Room POCT-GLUCOSE [id number] 17:22:00 Test Item Value Reference Range Comments POC-GLUCOSE METER (BEAKER) 270 mg/dL 70-110 TESTED AT [address] (test qqeb=3796) [place] [id number] SCREEN, [id number] 12:55:00 Test Item Value Reference Range Comments TEST URINE (BEAKER) (test estw=446) Negative POCT-GLUCOSE [id number] 11:37:00 Test Item Value Reference Range Comments POC-GLUCOSE METER (BEAKER) 263 mg/dL 70-110 TESTED AT [address] (test osmr=1360) [place] [id number] BODY FLUID CELL COUNT WITH [id number] 10:57:00 Test Item Value Reference Range Comments APPEARANCE FLUID (BEAKER) (test uulh=754) Hazy Clear COLOR FLUID (BEAKER) (test qyiu=432) Brown Colorless, Straw RBC FLUID (BEAKER) (test wyon=936) 237527 /cu mm <=1 ADJUSTED WBC FLUID (BEAKER) (test xgdv=3581) 39568 /cu mm <=5 LINING CELLS (BEAKER) (test welo=4776) 0 /cu mm <=1 NEUTROPHILS FLUID (BEAKER) (test eerm=5631) 100 % LYMPHS FLUID (BEAKER) (test zuug=487) 0 % MONO/MACROPHAGE FLUID (BEAKER) (test 0 % gooc=669) EOSINOPHILS FLUID (BEAKER) (test amxu=164) 0 % BASO FLUID (BEAKER) (test wgjg=066) 0 % CONTAINER BODY FLUID (BEAKER) (test EDTA Tube yoha=7364) HEMOGLOBIN [id number] 09:49:00 Test Item Value Reference Range Comments HEMOGLOBIN A1C (BEAKER) (test qixm=820) 9.8 % 4.3-6.1 POCT-GLUCOSE [id number] 06:39:00 Test Item Value Reference Range Comments POC-GLUCOSE METER (BEAKER) 246 mg/dL 70-110 TESTED AT [address] (test dmuj=1790) [facility] [address] BASIC METABOLIC [id number] 05:29:00 Test Item Value Reference Range Comments SODIUM (BEAKER) (test 135 meq/L 136-145 brlh=073) POTASSIUM (BEAKER) (test 3.1 meq/L 3.5-5.1 fybq=415) CHLORIDE (BEAKER) (test 97 meq/L 98-107 wrct=430) CO2 (BEAKER) (test 30 meq/L 22-29 bzvl=002) BLOOD UREA NITROGEN 9 mg/dL 7-21 (BEAKER) (test pmqp=743) CREATININE (BEAKER) (test 0.68 mg/dL 0.57-1.25 ider=172) GLUCOSE RANDOM (BEAKER) 246 mg/dL 70-105 (test uead=120) CALCIUM (BEAKER) (test 8.5 mg/dL 8.4-10.2 abnl=002) EGFR (BEAKER) (test 92 mL/min/1.73 sq m ESTIMATED GFR IS NOT kjpc=1621) ACCURATE CREATININE CLEARANCE IN PREDICTING GLOMERULAR FILTRATION RATE. ESTIMATED GFR IS NOT APPLICABLE FOR DIALYSIS PATIENTS. LACTIC ACID, [id number] 05:17:00 Test Item Value Reference Range Comments LACTATE BLOOD VENOUS (2) (BEAKER) (test 1.0 mmol/L 0.5-2.2 pflu=1674) CBC W/PLT COUNT & AUTO [id number] 05:12:00 Test Item Value Reference Range Comments WHITE BLOOD CELL COUNT (BEAKER) (test xrkl=666) 23.9 K/ L 3.5-10.5 RED BLOOD CELL COUNT (BEAKER) (test teze=399) 4.07 M/ L 3.93-5.22 HEMOGLOBIN (BEAKER) (test ennc=441) 11.4 GM/DL 11.2-15.7 HEMATOCRIT (BEAKER) (test anmu=416) 35.1 % 34.1-44.9 MEAN CORPUSCULAR VOLUME (BEAKER) (test ldsa=511) 86.2 fL 79.4-94.8 MEAN CORPUSCULAR HEMOGLOBIN (BEAKER) (test 28.0 pg 25.6-32.2 vyby=732) MEAN CORPUSCULAR HEMOGLOBIN CONC (BEAKER) (test 32.5 GM/DL 32.2-35.5 xdti=976) RED CELL DISTRIBUTION WIDTH (BEAKER) (test 14.6 % 11.7-14.4 tmki=903) PLATELET COUNT (BEAKER) (test xnsf=578) 327 K/CU MM 150-450 MEAN PLATELET VOLUME (BEAKER) (test nshs=552) 9.7 fL 9.4-12.3 NUCLEATED RED BLOOD CELLS (BEAKER) (test 0 /100 WBC 0-0 jfnm=407) NEUTROPHILS RELATIVE PERCENT (BEAKER) (test 83 % wxeq=674) LYMPHOCYTES RELATIVE PERCENT (BEAKER) (test 7 % yppa=002) MONOCYTES RELATIVE PERCENT (BEAKER) (test 6 % iioy=276) EOSINOPHILS RELATIVE PERCENT (BEAKER) (test 0 % bdhh=811) BASOPHILS RELATIVE PERCENT (BEAKER) (test 1 % ydbb=285) NEUTROPHILS ABSOLUTE COUNT (BEAKER) (test 19.80 K/ L 1.56-6.13 sngw=377) LYMPHOCYTES ABSOLUTE COUNT (BEAKER) (test 1.68 K/ L 1.18-3.74 fdoc=995) MONOCYTES ABSOLUTE COUNT (BEAKER) (test 1.38 K/ L 0.24-0.36 mhii=852) EOSINOPHILS ABSOLUTE COUNT (BEAKER) (test 0.08 K/ L 0.04-0.36 xesd=761) BASOPHILS ABSOLUTE COUNT (BEAKER) (test 0.11 K/ L 0.01-0.08 pete=202) IMMATURE GRANULOCYTES-RELATIVE PERCENT (BEAKER) 3 % 0-1 (test kisi=4117) LACTIC ACID, [id number] 01:23:00 Test Item Value Reference Range Comments LACTATE BLOOD VENOUS (2) (BEAKER) (test 1.3 mmol/L 0.5-2.2 fjwv=1969) T4, [id number] 23:43:00 Test Item Value Reference Range Comments FREE T4 (BEAKER) (test xpts=626) 0.77 ng/dL 0.70-1.48 TSH/FREE T4 IF [id number] 23:06:00 Test Item Value Reference Range Comments THYROID STIMULATING HORMONE (BEAKER) (test 10.96 uIU/mL 0.35-4.94 xjvf=922) [id number] 22:27:00 Test Item Value Reference Range Comments PROCALCITONIN (BEAKER) (test nnmr=7398) 0.28 ng/mL <0.05 SEPSIS RISK (ng/mL)Low: 0.05-0.50Intermediate: 0.51-2.00High: & gt;=2.01CBC W/PLT COUNT & AUTO [id number] 22:11:00 Test Item Value Reference Range Comments WHITE BLOOD CELL COUNT (BEAKER) (test yesy=704) 25.0 K/ L 3.5-10.5 RED BLOOD CELL COUNT (BEAKER) (test rril=476) 4.16 M/ L 3.93-5.22 HEMOGLOBIN (BEAKER) (test plfo=759) 12.0 GM/DL 11.2-15.7 HEMATOCRIT (BEAKER) (test uytg=280) 35.4 % 34.1-44.9 MEAN CORPUSCULAR VOLUME (BEAKER) (test yprs=344) 85.1 fL 79.4-94.8 MEAN CORPUSCULAR HEMOGLOBIN (BEAKER) (test 28.8 pg 25.6-32.2 eqdv=595) MEAN CORPUSCULAR HEMOGLOBIN CONC (BEAKER) (test 33.9 GM/DL 32.2-35.5 zumg=267) RED CELL DISTRIBUTION WIDTH (BEAKER) (test 14.5 % 11.7-14.4 ksuz=455) PLATELET COUNT (BEAKER) (test qcmd=178) 371 K/CU MM 150-450 MEAN PLATELET VOLUME (BEAKER) (test xffj=032) 9.6 fL 9.4-12.3 NUCLEATED RED BLOOD CELLS (BEAKER) (test 0 /100 WBC 0-0 cdwc=302) (CELLAVISION MANUAL DIFF)[id number] 22:11:00 Test Item Value Reference Range Comments NEUTROPHILS - REL (CELLAVISION)(BEAKER) (test 87 % iqvb=0558) LYMPHOCYTES - REL (CELLAVISION)(BEAKER) (test 2 % mjpk=2465) MONOCYTES - REL (CELLAVISION)(BEAKER) (test 3 % bysm=7754) METAMYELOCYTES - REL (CELLAVISION)(BEAKER) (test 2 % 0-0 pcnf=2873) MYELOCYTES - REL (CELLAVISION)(BEAKER) (test 1 % 0-0 yzdw=7660) BANDS - REL (CELLAVISION)(BEAKER) (test 5 % 0-10 nkxr=1140) NEUTROPHILS - ABS (CELLAVISION)(BEAKER) (test 21.75 K/ul 1.56-6.13 ilsh=3083) LYMPHOCYTES - ABS (CELLAVISION)(BEAKER) (test 0.50 K/ul 1.18-3.74 sdhx=1304) MONOCYTES - ABS (CELLAVISION)(BEAKER) (test 0.75 K/uL 0.24-0.36 zqwu=3017) METAMYELOCYTES - ABS (CELLAVISION)(BEAKER) (test 0.50 K/uL 0.00-0.00 thjk=0601) MYELOCYTES-ABS (CELLAVISION)(BEAKER) (test 0.25 K/uL 0.00-0.00 tpzc=0204) BANDS - ABS (CELLAVISION)(BEAKER) (test 1.25 K/uL 0.00-0.80 yjnk=5353) TOTAL COUNTED (BEAKER) (test zspa=7355) 100 WBC MORPHOLOGY (BEAKER) (test aero=780) Normal GIANT PLATELETS (BEAKER) (test cxzy=726) Present POLYCHROMATOPHILLIC RBCS(BEAKER) (test mdgn=113) 1+ few ARTIFACT (CELLAVISION)(BEAKER) (test srmk=9435) Present PLATELET CONCENTRATION (CELLAVISION)(BEAKER) Adequate (test gtvt=1115) Received comment: User comments: Slide comments:[id number] 22:04:00 Test Item Value Reference Range Comments PHOSPHORUS (BEAKER) (test ezhx=864) 2.5 mg/dL 2.3-4.7 [id number] 22:04:00 Test Item Value Reference Range Comments MAGNESIUM (BEAKER) (test dmzc=329) 1.3 mg/dL 1.6-2.6 BASIC METABOLIC [id number] 22:04:00 Test Item Value Reference Range Comments SODIUM (BEAKER) (test 133 meq/L 136-145 mtcw=330) POTASSIUM (BEAKER) (test 3.2 meq/L 3.5-5.1 mlzw=158) CHLORIDE (BEAKER) (test 95 meq/L 98-107 gcaa=727) CO2 (BEAKER) (test 26 meq/L 22-29 lcha=899) BLOOD UREA NITROGEN 9 mg/dL 7-21 (BEAKER) (test unkh=548) CREATININE (BEAKER) (test 0.69 mg/dL 0.57-1.25 bvxm=378) GLUCOSE RANDOM (BEAKER) 216 mg/dL 70-105 (test milc=207) CALCIUM (BEAKER) (test 8.1 mg/dL 8.4-10.2 udku=729) EGFR (BEAKER) (test 90 mL/min/1.73 sq m ESTIMATED GFR IS NOT xvue=3959) ACCURATE CREATININE CLEARANCE IN PREDICTING GLOMERULAR FILTRATION RATE. ESTIMATED GFR IS NOT APPLICABLE FOR DIALYSIS PATIENTS. LACTIC ACID, [id number] 21:59:00 Test Item Value Reference Range Comments LACTATE BLOOD VENOUS (2) 1.1 mmol/L 0.5-2.2 Specimen slightly hemolyzed (BEAKER) (test bmpy=7448) [id number] 21:54:00 Test Item Value Reference Range Comments PARTIAL THROMBOPLASTIN TIME (BEAKER) (test 29.3 seconds 22.5-36.0 tvkw=533) PROTHROMBIN [id number] 21:53:00 Test Item Value Reference Range Comments PROTIME (BEAKER) (test egjf=710) 14.3 seconds 11.9-14.2 INR (BEAKER) (test lyox=818) 1.2 <=5.9 Effective 11/04/2018: PT Reference Range ChangeNew: 11.9-14.2 Previous: 11.7- 14.7RECOMMENDED COUMADIN/WARFARIN INR THERAPY RANGESSTANDARD DOSE: 2.0-3.0 Includes: PROPHYLAXIS for venous thrombosis, systemic embolization; TREATMENT for venous thrombosis and/or pulmonary embolus.HIGH RISK: Target INR is2.5-3.5 for patients wiht mechanical heart valves.URINALYSIS W/ REFLEX URINE [id number] 21:40:00 Test Item Value Reference Range Comments COLOR (BEAKER) (test isdi=892) Mehan CLARITY (BEAKER) (test tkfz=761) Cloudy SPECIFIC GRAVITY UA (BEAKER) (test nbvk=695) 1.021 1.001-1.035 PH UA (BEAKER) (test sinu=053) 6.0 5.0-8.0 PROTEIN UA (BEAKER) (test rymw=277) 300 mg/dL Negative GLUCOSE UA (BEAKER) (test jqxp=182) 500 mg/dL Negative KETONES UA (BEAKER) (test pvld=940) 60 mg/dL Negative BILIRUBIN UA (BEAKER) (test zqlk=077) Negative Negative BLOOD UA (BEAKER) (test yajc=061) Large Negative NITRITE UA (BEAKER) (test xdtp=778) Negative Negative LEUKOCYTE ESTERASE UA (BEAKER) (test mhny=625) Large Negative UROBILINOGEN UA (BEAKER) (test uphu=853) 0.2 mg/dL 0.2-1.0 RBC UA (BEAKER) (test qxbp=547) 970 /HPF WBC UA (BEAKER) (test thvj=357) 1940 /HPF SOURCE(BEAKER) (test qtws=3640) POCT-GLUCOSE [id number] 20:41:00 Test Item Value Reference Range Comments POC-GLUCOSE METER (BEAKER) 251 mg/dL 70-110 TESTED AT [facility] [address] (test vmhp=3719) [facility] [id number]
--- NOTE | 2018-12-21 09:56 | RAD REPORT ---
EXAM DESCRIPTION: RAD - Chest Single View - 12/21/2018 9:43 am CLINICAL HISTORY: DYSPNEA Chest pain. COMPARISON: Chest Single View dated 11/29/2018; Chest Single View dated 07/22/2018 FINDINGS: Portable technique limits examination quality. The lungs are grossly clear. The heart is mildly enlarged in size. No displaced fractures.
[2018-12-21] MEDS ORDERED: ONDANSETRON 4 MG/2 ML VIAL ONE (10:03)
[2018-12-21] MEDS ORDERED: NA CHLORIDE 0.9% 1,000 ML ONE (10:03)
[2018-12-21 11:01] LABS: Absolute Lymphocytes (CBC) 1.8 K/uL (0.7-4.9); Basophils % 0.4 % (0-1.3); Eosinophils % 0.2 % (0-4.4); Hematocrit 32.1 % (36.0-45.0); Lymphocytes % 6.8 % (15.3-44.8); MPV 8.8 fL (7.6-11.3); Monocytes % 7.7 % (3.3-12.3); RBC Red Blood Cell Count 3.76 M/uL (3.86-4.86)
[2018-12-21 11:34] LABS: Protime INR 1.2
[2018-12-21 11:36] LABS: ALT/SGPT 19 U/L (12-78); AST/SGOT 14 U/L (15-37); Albumin 2.5 g/dL (3.4-5.0); Alkaline Phosphatase 95 U/L (45-117); BUN Blood Urea Nitrogen 16 mg/dL (7-18); Bicarbonate 25 mmol/L (21-32); Bilirubin Direct 0.2 mg/dL (0-0.2); Bilirubin Total 0.7 mg/dL (0.2-1.0); CKMB Creatine Kinase MB < 1.0 ng/mL (0.3-3.6); Creatine Phosphokinase 27 U/L (26-192); Glucose Level 245 mg/dL (74-106); Lipase 43 U/L (73-393); Potassium 3.3 mmol/L (3.5-5.1); Protein, Total 8.5 g/dL (6.4-8.2); Sodium Level 135 mmol/L (136-145)
[2018-12-21 11:41] LABS: Troponin (Emerg Dept Use Only) 0.82 ng/mL (0.0-0.045)
[2018-12-21] MEDS ORDERED: VANCOMYCIN/NS 1 gm 1 GM/250 ML BAG IV ONE (12:00)
--- NOTE | 2018-12-21 12:26 | EDPHYS ---
Physician Documentation [facility] Name: Dejah Francis Age: 48 yrs Sex: Female : 1970 Arrival Date: 12/21/2018 Time: 08:56 Bed 19 Private MD: ED Physician Sedrick Zaragoza HPI: 12/21 11:23 This 48 yrs old Female presents to ER via Wheelchair with complaints of Needs jr8 Stint Put Back In. 11:23 Patient was seen five days ago in ED for accidental removal of nephrostomy drain. jr8 Nephrostomy drain was placed due to nephritic and perinephritic abscess on right side. Was sent to [facility] for replacement of tube but told her that they wanted to hold off. Stated that 2 days ago told her that they made a mistake and want to see her back. Stated that they needed to see her within the next 3-4 days to have it put back in. Came in today because she does not have a ride up there and is now feeling much worse . Severity of symptoms: At their worst the symptoms were moderate in the emergency department the symptoms are unchanged. The patient has been recently seen by a physician:. OTOLARYNGOLOGY NURSE: 09:14 LMP N/A - Irregular menses bp Historical: - Allergies: 09:05 Ibuprofen; ss - PMHx: 09:05 CVA; Diabetes - NIDDM; Thyroid problem; ss - PSHx: 09:05 cyst removal - left shoulder; ss - Immunization history:: Adult Immunizations. ROS: 11:23 Eyes: Negative for injury, pain, redness, and discharge, ENT: Negative for injury, jr8 pain, and discharge, Neck: Negative for injury, pain, and swelling, Cardiovascular: Negative for chest pain, palpitations, and edema, Respiratory: Negative for shortness of breath, cough, wheezing, and pleuritic chest pain, Back: Negative for injury and pain, MS/Extremity: Negative for injury and deformity, Skin: Negative for injury, rash, and discoloration, Neuro: Negative for headache, weakness, numbness, tingling, and seizure. 11:23 Abdomen/GI: Positive for nausea and vomiting, Negative for abdominal pain, abdominal distension, anorexia, dysphagia, hematemesis, black/tarry stool, rectal pain, rectal bleeding, bowel incontinence, flatulence. Exam: 11:23 Eyes: Pupils equal round and reactive to light, extra-ocular motions intact. Lids and jr8 lashes normal. Conjunctiva and sclera are non-icteric and not injected. Cornea within normal limits. Periorbital areas with no swelling, redness, or edema. ENT: Nares patent. No nasal discharge, no septal abnormalities noted. Tympanic membranes are normal and external auditory canals are clear. Oropharynx with no redness, swelling, or masses, exudates, or evidence of obstruction, uvula midline. Mucous membranes moist. Neck: Trachea midline, no thyromegaly or masses palpated, and no cervical lymphadenopathy. Supple, full range of motion without nuchal rigidity, or vertebral point tenderness. No Meningismus. Respiratory: Lungs have equal breath sounds bilaterally, clear to auscultation and percussion. No rales, rhonchi or wheezes noted. No increased work of breathing, no retractions or nasal flaring. Back: No spinal tenderness. No costovertebral tenderness. Full range of motion. Skin: Warm, dry with normal turgor. Normal color with no rashes, no lesions, and no evidence of cellulitis. MS/ Extremity: Pulses equal, no cyanosis. Neurovascular intact. Full, normal range of motion. Neuro: Awake and alert, GCS 15, oriented to person, place, time, and situation. Cranial nerves II-XII grossly intact. Motor strength 5/5 in all extremities. Sensory grossly intact. Cerebellar exam normal. Normal gait. 11:23 Cardiovascular: Rate: tachycardic, Rhythm: regular, Pulses: Pulses are 2+ in right radial artery and left radial artery. Heart sounds: normal, normal S1and S2, no S3 or S4, no murmur, no rub, no gallop, Edema: is not appreciated, JVD: is not appreciated. 11:23 Abdomen/GI: Inspection: obese Bowel sounds: active, all quadrants, Palpation: abdomen is soft and non-tender, in all quadrants, mass, is not appreciated, rebound tenderness, is not appreciated, voluntary guarding, is not appreciated, involuntary guarding, is not appreciated, no appreciated organomegaly, Indicators: McBurney's point is not tender, Celaya's sign is negative, Rovsing's sign is negative, Liver: tenderness, is not appreciated. Vital Signs: 09:14 BP 128 / 86; Pulse 138; Resp 24; Temp 97.7(TE); Pulse Ox 94% on R/A; Weight 136.08 kg; bp Height 5 ft. 9 in. (175.26 cm); 10:15 BP 119 / 75; Pulse 124; Resp 22; Pulse Ox 94% ; bp 11:39 Pulse 123; Resp 20; Pulse Ox 93% on R/A; bp 12:59 BP 152 / 78; Pulse 118; Resp 13; Pulse Ox 96% on R/A; bp 09:14 Body Mass Index 44.30 (136.08 kg, 175.26 cm) bp MDM: 09:08 Patient medically screened. jr8 12:24 Data reviewed: vital signs, nurses notes, lab test result(s), EKG, radiologic studies, jr8 CT scan. Data interpreted: Pulse oximetry: on room air is 96 %. Interpretation: normal. Counseling: I had a detailed discussion with the patient and/or guardian regarding: the historical points, exam findings, and any diagnostic results supporting the discharge/admit diagnosis, lab results, radiology results, the need to transfer to another facility, for higher level of care. 12/21 09:16 Order name: Basic Metabolic Panel bp 12/21 09:16 Order name: Blood Culture Adult (2) bp 12/21 09:16 Order name: CBC with Diff bp 12/21 09:16 Order name: Ckmb bp 12/21 09:16 Order name: CPK bp 12/21 09:16 Order name: Lactate bp 12/21 09:16 Order name: LFT's bp 12/21 09:16 Order name: Lipase bp 12/21 09:16 Order name: Procalcitonin; Complete Time: 11:39 bp 12/21 09:16 Order name: Protime (+inr); Complete Time: 11:39 bp 12/21 09:16 Order name: Ptt, Activated; Complete Time: 11:39 bp 12/21 09:16 Order name: Troponin (emerg Dept Use Only); Complete Time: 11:47 bp 12/21 09:17 Order name: Basic Metabolic Panel; Complete Time: 11:47 EDMS 12/21 09:16 Order name: Chest Single View XRAY; Complete Time: 09:58 bp 12/21 09:18 Order name: Blood Culture EDMS 12/21 09:18 Order name: CBC with Automated Diff; Complete Time: 13:40 EDMS 12/21 09:18 Order name: CKMB Creatine Kinase MB; Complete Time: 11:47 EDMS 12/21 09:18 Order name: Creatine Phosphokinase; Complete Time: 11:47 EDMS 12/21 09:18 Order name: Liver (Hepatic) Function; Complete Time: 11:47 EDMS 12/21 09:18 Order name: Lipase; Complete Time: 11:47 EDMS 12/21 11:48 Order name: CT Stone Protocol; Complete Time: 12:53 jr8 12/21 13:29 Order name: Manual Differential; Complete Time: 13:40 EDMS 12/21 14:05 Order name: Urine Dipstick--Ancillary (enter results); Complete Time: 14:17 bd 12/21 14:05 Order name: Urine --Ancillary (enter results); Complete Time: 14:17 bd 12/21 09:16 Order name: Accucheck; Complete Time: 10:25 bp 12/21 09:16 Order name: Cardiac monitoring; Complete Time: 09:17 bp 12/21 09:16 Order name: EKG - Nurse/Tech; Complete Time: 09:26 bp 12/21 09:16 Order name: IV Saline Lock - Large Bore; Complete Time: 10:25 bp 12/21 09:16 Order name: Labs collected and sent; Complete Time: 10:26 bp 12/21 09:16 Order name: O2 Per Protocol; Complete Time: 09:49 bp 12/21 09:16 Order name: O2 Sat Monitoring; Complete Time: 09:49 bp 12/21 09:16 Order name: Urine Dipstick-Ancillary (obtain specimen); Complete Time: 13:03 bp 12/21 13:27 Order name: EKG Electrocardiogram EDMS Administered Medications: 10:00 Drug: NS 0.9% (30 ml/kg) 30 ml/kg Route: IV; Rate: bolus; Site: right forearm; bp 14:39 Follow up: IV Status: Completed infusion; IV Intake: 4000ml bp 10:00 Drug: Zofran 4 mg Route: IVP; Site: right forearm; bp 10:58 Follow up: Response: Nausea is decreased bp 11:45 Drug: vancoMYCIN 1 grams Route: IVPB; Infused Over: 2 hrs; Site: right forearm; bp 14:37 Follow up: IV Status: Infusion continued upon transfer bp 11:45 Drug: Rocephin 1 grams Route: IV; Rate: calculated rate; Site: right forearm; bp 13:53 Follow up: IV Status: Completed infusion; IV Intake: 20ml bp 13:54 Drug: Linezolid 600 mg Route: IV; Rate: calculated rate; Infused Over: 60 mins; Site: bp left antecubital; 14:36 Follow up: IV Status: Infusion continued upon transfer bp 14:35 Drug: Mycamine 100 mg Route: IV; Rate: calculated rate; Site: left antecubital; bp 14:36 Follow up: IV Status: Infusion continued upon transfer bp Disposition: 16:43 Co-signature as Attending Physician, Sedrick Zaragoza MD I agree with the assessment and kdr plan of care. Disposition: 12/21/18 12:25 Transfer ordered to [facility]. Diagnosis are Sepsis, Renal and perinephric abscess. - Reason for transfer: Higher level of care. - Accepting physician is [facility]. - Condition is Stable. - Problem is new. - Symptoms have improved. Signatures: Dispatcher [employer] [facility] Sedrick Zaragoza MD MD kdr Ami Maxwell RN RN ss Andre Aaron PA PA jr8 Carrillo Dumont RN RN bp Corrections: (The following items were deleted from the chart) 14:35 09:18 Lactate ordered. [facility] EDTN 14:40 12:25 12/21/2018 12:25 Transfer ordered to [facility]. Diagnosis is bp Sepsis; Renal and perinephric abscess. Reason for transfer: Higher level of care. Accepting physician is [facility]. Condition is Stable. Problem is new. Symptoms have improved. jr8
--- NOTE | 2018-12-21 12:26 | ER ---
Nurse's Notes [facility] Name: Dejah Francis Age: 48 yrs Sex: Female : 1970 Arrival Date: 12/21/2018 Time: 08:56 Bed 19 Private MD: Diagnosis: Sepsis;Renal and perinephric abscess Presentation: 12/21 09:03 Presenting complaint: Father states: "She was here the other day, and they sent us to [facility] in [place] to have that drain put back in place, but they said that she didn't need it anymore, so they discharged us, and yesterday they called me 3 times and her twice to tell us to come back right away to have a stent placed. She is not feeling well and is going down fast." Pt c/o generally not feeling well/ fatigue. Transition of care: patient was not received from another setting of care. Onset of symptoms is unknown. Risk Assessment: Do you want to hurt yourself or someone else? Patient reports no desire to harm self or others. Care prior to arrival: None. 09:03 Method Of Arrival: Wheelchair 09:15 Initial Sepsis Screen: Does the patient meet any 2 criteria? Temp <36.0*C (96.8*F)) or bp > 38.3*C (100.9*F). HR > 90 bpm. Yes Does the patient have a suspected source of infection? Yes: Dysuria/Frequency/Urgency/UTI. 09:15 Acuity: ANDREA 2 bp Triage Assessment: 09:12 General: Appears distressed, comfortable, ill, obese, Behavior is cooperative, bp appropriate for age, anxious. Pain: Complains of pain in back. EENT: No deficits noted. Neuro: Level of Consciousness is awake, alert, obeys commands, Oriented to person, place, time, situation, Appropriate for age. Cardiovascular: No deficits noted. Respiratory: Reports shortness of breath. GI: No signs and/or symptoms were reported involving the gastrointestinal system. : Reports pain in right flank(s), in lower back. Derm: No deficits noted. Musculoskeletal: No deficits noted. 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 Screenin:18 Abuse screen: Denies threats or abuse. Denies injuries from another. Nutritional bp screening: No deficits noted. Tuberculosis screening: No symptoms or risk factors identified. Fall Risk None identified. Assessment: 09:15 General: SEE TRIAGE NOTE. bp 10:00 Reassessment: UNABLE TO OBTAIN LAB SPECIMEN FROM PIV PLACEMENT x2. PROVIDER NOTIFIED, bp PHLEBOTOMY AT B/S. 11:30 Reassessment: ABX ON HOLD FOR 2ND BLOOD CX, PHLEBOTOMY UNABLE TO OBTAIN AT THIS TIME. bp 12:58 Reassessment: UNABLE TO OBTAIN 2ND BLOOD CX OR LACTIC, PROVIDER NOTIFIED AND TREATMENT bp PROCEEDING. ADDITIONAL MEDICATIONS ORDERED FROM PHARMACY. 14:13 Reassessment: REPORT TO LEONARDO HOOD AT [facility]. TRANSPORT PENDING. bp 14:34 Reassessment: EMS AT / FOR TRANSPORT. bp Vital Signs: 09:14 BP 128 / 86; Pulse 138; Resp 24; Temp 97.7(TE); Pulse Ox 94% on R/A; Weight 136.08 kg; bp Height 5 ft. 9 in. (175.26 cm); 10:15 BP 119 / 75; Pulse 124; Resp 22; Pulse Ox 94% ; bp 11:39 Pulse 123; Resp 20; Pulse Ox 93% on R/A; bp 12:59 BP 152 / 78; Pulse 118; Resp 13; Pulse Ox 96% on R/A; bp 09:14 Body Mass Index 44.30 (136.08 kg, 175.26 cm) bp ED Course: 08:56 Patient arrived in ED. rg4 09:05 Arm band placed on right wrist. ss 09:08 Andre Aaron PA is PHCP. jr8 09:08 Sedrick Zaragoza MD is Attending Physician. jr8 09:12 Carrillo Dumont, SANA is Primary Nurse. bp 09:15 Triage completed. bp 09:18 Patient has correct armband on for positive identification. Bed in low position. Call bp light in reach. Side rails up X2. Adult w/ patient. 09:40 EKG done, by consulting technical director. reviewed by Andre PIERSON. at1 09:43 X-ray completed. Portable x-ray completed in exam room. Patient tolerated procedure sh7 well. 09:44 Chest Single View XRAY In Process Unspecified. EDMS 10:00 Inserted saline lock: 20 gauge in left antecubital area, using aseptic technique. dh3 10:05 Missed attempt(s): 22 gauge in right forearm. Bleeding controlled, band aid applied, dh3 catheter tip intact. 10:05 Inserted saline lock: 22 gauge in right forearm, using aseptic technique. bp 12:05 Radiology exam delayed due to Lab is with pt at this time. vm2 12:36 CT Stone Protocol In Process Unspecified. EDMS 12:55 Urine collected: hat, brown cloudy. dh3 Administered Medications: 10:00 Drug: NS 0.9% (30 ml/kg) 30 ml/kg Route: IV; Rate: bolus; Site: right forearm; bp 14:39 Follow up: IV Status: Completed infusion; IV Intake: 4000ml bp 10:00 Drug: Zofran 4 mg Route: IVP; Site: right forearm; bp 10:58 Follow up: Response: Nausea is decreased bp 11:45 Drug: vancoMYCIN 1 grams Route: IVPB; Infused Over: 2 hrs; Site: right forearm; bp 14:37 Follow up: IV Status: Infusion continued upon transfer bp 11:45 Drug: Rocephin 1 grams Route: IV; Rate: calculated rate; Site: right forearm; bp 13:53 Follow up: IV Status: Completed infusion; IV Intake: 20ml bp 13:54 Drug: Linezolid 600 mg Route: IV; Rate: calculated rate; Infused Over: 60 mins; Site: bp left antecubital; 14:36 Follow up: IV Status: Infusion continued upon transfer bp 14:35 Drug: Mycamine 100 mg Route: IV; Rate: calculated rate; Site: left antecubital; bp 14:36 Follow up: IV Status: Infusion continued upon transfer bp Intake: 13:53 IV: 20ml; Total: 20ml. bp 14:39 IV: 4000ml; Total: 4020ml. bp Outcome: 12:25 ER care complete, transfer ordered by MD. luna 14:40 Patient left the ED. bp Signatures: Dispatcher [employer] EDMS Ami Maxwell RN RN ss Andre Aaron PA PA jr8 Gonzales, Amanda, supervisor of officials EKG Tat1 Desirae Burgos rg4 Mae Savage 2 Anjana Alvarado 3 Carrillo Dumont, RN RN bp Megan Dunlap 7 Corrections: (The following items were deleted from the chart) 09:17 09:14 BP 128 / 86; Pulse 138bpm; Resp 24bpm; Pulse Ox 94% RA; Temp 95.2F Temporal; bp 136.08 kg; Height 5 ft. 9 in.; BMI: 44.3; bp
[2018-12-21] MEDS ORDERED: CEFTRIAXONE/SWI 1gm 1 GM/10 ML SYR ONE (12:51)
--- NOTE | 2018-12-21 12:51 | RAD REPORT ---
EXAM DESCRIPTION: CT - Stone Protocol - 12/21/2018 12:35 pm CLINICAL HISTORY: Flank pain. History of nephritic abscess. Worsening of condition COMPARISON: Abdomen Pelvis W Contrast dated 12/16/2018; Stone Protocol dated 12/16/2018 TECHNIQUE: Axial images were obtained without oral or IV contrast. Lack of contrast limits solid org an and vascular assessment. The [id number] spans the entirety of the system partially obscuring uppermost abdomen and lung bases. Coronal reformatted images were obtained and reviewed. All CT scans are performed using dose optimization technique as appropriate and may include automated exposure control or mA/KV adjustment according to patient size. FINDINGS: Mild subsegmental atelectasis is seen in the posterior right lung base. Imaged portions of the liver and spleen show no suspicious findings on non-contrast imaging. The panc reas and adrenal glands are normal. No pathologic lymphadenopathy in the abdomen or pelvis. There again seen is a perinephric in right renal abscess collection present. Abscess is seen to exten d posteriorly to the fascia layers in the paraspinal space. The abscess collection appears similar in size and extent relative to 12/16/2018 study. Inflammatory changes are seen in the perinephric regio n inferior to the right kidney. A double-J stent is in place on the right spanning the right renal pelvis and the urinary bladder. A small volume of air is present within the urinary bladder. No free air or bowel obstruction. Normal appendix noted.Complex 3.3 cm left ovarian lesion is unchang ed. No significant bony abnormality. IMPRESSION: Right renal and perinephric complex multi-loculated abscess collection appears essential ly unchanged in size and extent compared to 12/16/2018 study. Right double-J stent is in place spanni ng the right renal pelvis and urinary bladder.
[2018-12-21] MEDS ORDERED: MICAFUNGIN SODIUM 100 MG in NA CHLORIDE 0.9% 100 ML IV ONE (13:15)
[2018-12-21] MEDS ORDERED: LINEZOLID 600 MG IVPB 600 MG/300 ML BAG IV SCH (13:15)
[2018-12-21 13:28] LABS: Blood Morphology Comment NOT SEEN (NOT SEEN); Platelet Estimate ADEQ
[2018-12-21 14:11] LABS: Urine Blood 3+ (NEG); Urine Glucose TRACE (NEG); Urine Protein 3+ (NEG); Urine Specific Gravity >1.030 (1.005-1.030); Urine pH 5.5 (5.0-7.0)
--- NOTE | 2018-12-21 15:43 | EKG ---
Test Date: 2018-12-21 Test Time: 09:31:46 Fork Lift Technician: JENNIFER MEASUREMENT RESULTS: Intervals: Rate: 134 [place]: 88 QRSD: 88 QT: 388 QTc: 579 [place]: P: [place]: 88 QRS: 61 T: 42 INTERPRETIVE STATEMENTS: Sinus tachycardia with short [place] Nonspecific T wave abnormality Abnormal ECG Compared to ECG 12/16/2018 12:02:54 Short [place] interval now present T-wave abnormality now present Sinus rhythm no longer present Electronically Signed On 12-21-18 15:42:11 CDT by Ignacio Dunlap
== END 2018-12-21 14:40 | disposition short-term general hospital (02) ==
LOC: ER 08:53
DX: A41.9 Sepsis, unspecified organism (principal); Z86.73 Personal history of transient ischemic attack (TIA), and cerebral infarction without residual deficits; Z88.6 Allergy status to analgesic agent
CPT/HCPCS: 71045; 74176; 76377; 80048; 80076; 81003; 81025; 82550; 82553; 83690; 84145; 84484; 85025; 85610; 85730; 87040; 93005; 99284; J0696; J2020; J2248; J2405; J3370; J7030